=== PATIENT | male | born 1970 | race Two or more races ===

== ENCOUNTER 2016-04-23 09:34 | Inpatient (IN) | payer MEDICAID ==
[~2016-04-23] VITALS: Ht 182.9 cm; Wt 83.1 kg
[~2016-04-23 09:34] MED LIST: ATOR10TA52 PO; DICY10CA12 PO; INSRTEST IV; INSUINJ37 SUBCUT; LISI-646 PO; LISI-706 PO; OMEP20CA5 PO; ONDA4TAB5 PO; SERT-274 PO; TRAM100T37 PO
[2016-04-23] MEDS ORDERED: SODIUM CHLORIDE 0.9% 1,000 ML IVB ONE (10:36)
[2016-04-23] MEDS ORDERED: HYDROmorphone HCL 2 MG/ML VL IV ONE (10:45)
[2016-04-23] MEDS ORDERED: ONDANSETRON HCL 4 MG/2 ML VIAL IV ONE (10:45)
[2016-04-23] MEDS ORDERED: PANTOPRAZOLE SODIUM 40 MG/10 ML VIAL IV ONE (10:45)
[2016-04-23] MEDS ORDERED: SODIUM CHLORIDE 0.9% 1,000 ML IV ONE ×2 (10:45→13:00)
[2016-04-23 10:50] LABS: Basophils # (auto) 0 uL; Basophils % (auto) 0.6 % (0.0-2.0); Eosinophils # (auto) 0.2 uL; Eosinophils % (auto) 2.7 % (0.0-7.0); Hematocrit 38.7 % (41.0-53.0); Hemoglobin 12.5 g/dL (13.5-17.5); Lymphocytes # (auto) 1.3 uL; Lymphocytes % (auto) 17.3 % (10.0-50.0); Mean Corpuscular Hgb Conc. 32.4 g/dL (32.0-36.0); Mean Corpuscular Volume 89.7 fL (80.0-100.0); Monocytes # (auto) 0.5 uL; Monocytes % (auto) 5.9 % (0.0-12.0); Neutrophils # (auto) 5.6 uL; Neutrophils % (auto) 73.5 % (37.0-80.0); Platelet Count (auto) 281 10^3/uL (140-450); White Blood Cell 7.6 10^3/uL (4.4-10.8)
[2016-04-23 11:05] LABS: Albumin 3.8 g/dL (3.4-5.0); Alkaline Phosphatase 98 U/L (45-117); Anion Gap 10 (5-15); Aspartate Aminotransferase 15 U/L (15-37); BUN/Creatinine Ratio 15.1; Bilirubin, Total 0.5 mg/dL (0.2-1.0); Blood Urea Nitrogen 25 mg/dL (7-18); Calcium 9.2 mg/dL (8.5-10.1); Carbon Dioxide 25 mmol/L (21-32); Chloride 105 mmol/L (98-107); GFR African American 58 mL/min; GFR Non-African American 48 mL/min; Glucose 205 mg/dL (74-106); Sodium 140 mmol/L (136-145); Total Protein 7.4 g/dL (6.4-8.2)
[2016-04-23 11:51] LABS: Urine Bilirubin Negative (Negative); Urine Blood 2+ /uL (Negative); Urine Color Yellow (Yellow); Urine Glucose 2+ mg/dL (Normal); Urine Ketone Negative (Negative); Urine Mucus FEW (None Seen); Urine Nitrite Negative (Negative); Urine RBC 48 /hpf (0 - 3); Urine Urobilinogen Normal (Negative)
[2016-04-23] MEDS ORDERED: MORPHINE SULFATE 4 MG/ML SYRG IV ONE (13:00)
[2016-04-23] MEDS ORDERED: LORazepam 2MG/ML-1ML VIAL IV ONE (13:00)
[2016-04-23] MEDS ORDERED: PROMETHAZINE HCL 25 MG/ML 1ML IV ONE (13:00)
[2016-04-23] MEDS: SODIUM CHLORIDE 0.9% 1,000 ML IV SCH (16:53)
[2016-04-23] MEDS ORDERED: MORPHINE SULF INJ 2 MG/ML SYRINGE 1ML IV PRN ×2 (17:00→17:30)
[2016-04-23] MEDS ORDERED: traMADol HCL 50 MG TAB PO PRN (17:00)
[2016-04-23] MEDS: ACCU-CHEK COMFORT CURVE STRIP VI SCH ×2 (17:00→22:01)
[2016-04-23] MEDS ORDERED: DEXTROSE (50%) 50ML SYRG IV PRN (17:00)
[2016-04-23] MEDS ORDERED: cefTRIAXone 1GM/50ML D5W 50 ML IV ONE (17:00)
[2016-04-23] MEDS ORDERED: NITROGLYCERIN 0.4 MG SL TAB SL PRN (17:00)
[2016-04-23] MEDS ORDERED: TEMAZEPAM 15 MG CAP PO PRN (17:00)
[2016-04-23] MEDS ORDERED: DOCUSATE SOD 100 MG CAP PO PRN (17:00)
[2016-04-23] MEDS ORDERED: ACETAMINOPHEN 325 MG TAB PO PRN (17:00)
[2016-04-23] MEDS: InsuLIN REG 1unit/0.01ml Soln (100units/ml) SC SCH ×2 (17:00→22:09)
[2016-04-23 17:26] LABS: INR 1.01 (0.9-1.15); Prothrombin Time 10.4 sec (9.37-12.3)
[2016-04-23] MEDS ORDERED: ACETAMINOPHEN 500 MG TAB PO PRN (17:30)
[2016-04-23] MEDS ORDERED: HYDROcodone-ACET 5/325MG TAB PO PRN (17:30)
[2016-04-23 17:33] VITALS: BP 167/89
[2016-04-23] MEDS: MORPHINE SULF INJ 2 MG/ML SYRINGE 1ML IV PRN ×2 (17:41→21:46)
[2016-04-23] MEDS: ONDANSETRON HCL 4 MG/2 ML VIAL IV PRN (17:52)
[2016-04-23 17:56] VITALS: BP 155/100
[2016-04-23] MEDS ORDERED: FAMOTIDINE (10MG/ML) 2ML VL IV ONE (18:00)
[2016-04-23] MEDS ORDERED: HCTZ 25 MG TAB PO ONE (18:15)
[2016-04-23] MEDS ORDERED: SERTRALINE HCL 50 MG TAB PO ONE (18:15)
[2016-04-23] MEDS ORDERED: MULTIPLE VITAMIN TAB PO ONE (18:15)
[2016-04-23 20:00] VITALS: BP 150/95
[2016-04-23 20:10] LABS: Hematocrit 35.8 % (41.0-53.0); Hemoglobin 11.4 g/dL (13.5-17.5)
[2016-04-23 21:30] VITALS: BP 150/95
[2016-04-23] MEDS: DICYCLOMINE HCL 10 MG CAP PO SCH (21:44)
[2016-04-23] MEDS: ATORVASTATIN 20 MG TAB PO SCH (21:45)
[2016-04-23] MEDS: LISINOPRIL 20 MG TAB PO SCH (21:45)
[2016-04-23] MEDS: PANTOPRAZOLE SODIUM 40 MG/10 ML VIAL IV SCH (21:46)
[2016-04-23] MEDS: INSULIN DETEMIR(LEVEMIR) 1unit/0.01ml Soln (100units/ml) SC SCH (22:10)
[2016-04-24] VITALS (7 sets, daily range): BP systolic 137–163; BP diastolic 79–96
[2016-04-24] MEDS: MORPHINE SULF INJ 2 MG/ML SYRINGE 1ML IV PRN ×6 (01:46→22:34)
[2016-04-24] MEDS: ONDANSETRON HCL 4 MG/2 ML VIAL IV PRN ×4 (01:46→20:34)
[2016-04-24] MEDS: DICYCLOMINE HCL 10 MG CAP PO SCH ×3 (05:52→22:44)
[2016-04-24] MEDS: ACCU-CHEK COMFORT CURVE STRIP VI SCH ×4 (06:08→22:00)
[2016-04-24 06:12] LABS: Basophils # (auto) 0 uL; Basophils % (auto) 0.5 % (0.0-2.0); Eosinophils # (auto) 0 uL; Eosinophils % (auto) 0.2 % (0.0-7.0); Hematocrit 38.8 % (41.0-53.0); Hemoglobin 12.6 g/dL (13.5-17.5); Lymphocytes # (auto) 1.5 uL; Lymphocytes % (auto) 17.4 % (10.0-50.0); Mean Corpuscular Hgb Conc. 32.5 g/dL (32.0-36.0); Mean Corpuscular Volume 89.4 fL (80.0-100.0); Monocytes # (auto) 0.7 uL; Monocytes % (auto) 8.3 % (0.0-12.0); Neutrophils # (auto) 6.3 uL; Neutrophils % (auto) 73.6 % (37.0-80.0); Platelet Count (auto) 276 10^3/uL (140-450); Red Cell Distribution Width 13.3 % (11.6-16.0); White Blood Cell 8.6 10^3/uL (4.4-10.8)
[2016-04-24] MEDS: InsuLIN REG 1unit/0.01ml Soln (100units/ml) SC SCH ×4 (06:13→22:00)
[2016-04-24 07:02] LABS: Albumin 3.2 g/dL (3.4-5.0)
[2016-04-24 07:04] LABS: Bilirubin, Total 0.4 mg/dL (0.2-1.0)
[2016-04-24 07:25] LABS: BUN/Creatinine Ratio 16.7; Calcium 8.7 mg/dL (8.5-10.1); Potassium 3.6 mmol/L (3.5-5.1)
[2016-04-24 07:26] LABS: Total Protein 6.7 g/dL (6.4-8.2)
[2016-04-24] MEDS: SODIUM CHLORIDE 0.9% 1,000 ML IV SCH (09:33)
[2016-04-24] MEDS: cefTRIAXone 1GM/50ML D5W 50 ML IV SCH (09:38)
[2016-04-24] MEDS: LISINOPRIL 20 MG TAB PO SCH ×2 (09:39→22:45)
[2016-04-24] MEDS: SERTRALINE HCL 50 MG TAB PO SCH (09:39)
[2016-04-24] MEDS: PANTOPRAZOLE SODIUM 40 MG/10 ML VIAL IV SCH ×2 (09:40→22:34)
[2016-04-24] MEDS: HCTZ 25 MG TAB PO SCH (09:40)
[2016-04-24] MEDS: MULTIPLE VITAMIN TAB PO SCH (09:46)
[2016-04-24] MEDS: FAMOTIDINE (10MG/ML) 2ML VL IV SCH ×2 (09:50→22:34)
[2016-04-24] MEDS: SUCRALFATE 1 GM/10 ML ORAL SUSP PO SCH ×2 (17:08→22:45)
[2016-04-24] MEDS ORDERED: GOLYTELY 4L KIT PO ONE (17:15)
[2016-04-24] MEDS: INSULIN DETEMIR(LEVEMIR) 1unit/0.01ml Soln (100units/ml) SC SCH (22:00)
[2016-04-24] MEDS: ATORVASTATIN 20 MG TAB PO SCH (22:45)
[2016-04-25] MEDS: SODIUM CHLORIDE 0.9% 1,000 ML IV SCH ×2 (02:22→18:15)
[2016-04-25] MEDS: ONDANSETRON HCL 4 MG/2 ML VIAL IV PRN ×4 (03:26→21:14)
[2016-04-25] MEDS: MORPHINE SULF INJ 2 MG/ML SYRINGE 1ML IV PRN ×4 (03:27→21:14)
[2016-04-25] MEDS ORDERED: LORazepam 2MG/ML-1ML VIAL ONE (04:50)
[2016-04-25 05:00] VITALS: BP 188/79
[2016-04-25] MEDS ORDERED: LORazepam 2MG/ML-1ML VIAL IM ONE (05:05)
[2016-04-25] MEDS ORDERED: LEVETIRACETAM 500 MG/5ML INJ IV ONE (05:19)
[2016-04-25] MEDS ORDERED: LEVETIRACETAM INJ 500 MG in SODIUM CHL 0.9% 100 ML IV ONE (05:30)
[2016-04-25] MEDS ORDERED: LORazepam 2MG/ML-1ML VIAL IV ONE (05:45)
[2016-04-25] MEDS ORDERED: LORazepam 2MG/ML-1ML VIAL IV PRN (05:45)
[2016-04-25] MEDS: DICYCLOMINE HCL 10 MG CAP PO SCH ×3 (06:00→21:21)
[2016-04-25] MEDS: SUCRALFATE 1 GM/10 ML ORAL SUSP PO SCH ×4 (06:13→21:21)
[2016-04-25] MEDS: ACCU-CHEK COMFORT CURVE STRIP VI SCH ×4 (06:48→21:35)
[2016-04-25] MEDS: InsuLIN REG 1unit/0.01ml Soln (100units/ml) SC SCH ×4 (06:56→21:35)
[2016-04-25 08:00] VITALS: BP 189/8
[2016-04-25 09:00] VITALS: BP 172/93
[2016-04-25] MEDS: cefTRIAXone 1GM/50ML D5W 50 ML IV SCH (09:00)
[2016-04-25] MEDS: cloNIDine HCL 0.1 MG TAB PO PRN (09:00)
[2016-04-25] MEDS: FAMOTIDINE (10MG/ML) 2ML VL IV SCH ×2 (09:28→21:14)
[2016-04-25] MEDS: PANTOPRAZOLE SODIUM 40 MG/10 ML VIAL IV SCH ×2 (09:28→21:14)
[2016-04-25] MEDS: SERTRALINE HCL 50 MG TAB PO SCH (09:29)
[2016-04-25] MEDS: MULTIPLE VITAMIN TAB PO SCH (09:29)
[2016-04-25] MEDS: HCTZ 25 MG TAB PO SCH (09:29)
[2016-04-25] MEDS: LISINOPRIL 20 MG TAB PO SCH ×2 (09:29→21:35)
[2016-04-25] MEDS ORDERED: LABETALOL HCL 5 MG/ML 4ML SYRINGE IV PRN (09:45)
[2016-04-25] MEDS ORDERED: ONDANSETRON HCL 4 MG/2 ML VIAL ONE (11:14)
[2016-04-25] MEDS ORDERED: LIDOCAINE VISCOUS 2% 15ML UD ONE (11:19)
[2016-04-25] MEDS ORDERED: diphenhdrAMINE HCL 50 MG/1 ML VL ONE (11:19)
[2016-04-25] MEDS ORDERED: SODIUM CHLORIDE LOCK 10 ML ONE (11:19)
[2016-04-25] MEDS: MIDAZOLAM HCL 5 MG/ML-1ML VIAL ONE ×4 (12:05→12:16)
[2016-04-25] MEDS: fentaNYL CITRATE 100 MCG/2 ML VL ONE ×3 (12:05→12:16)
[2016-04-25 16:51] VITALS: BP 165/87
[2016-04-25 20:00] VITALS: BP 152/82
[2016-04-25] MEDS: ATORVASTATIN 20 MG TAB PO SCH (21:21)
[2016-04-25 21:36] VITALS: BP 152/82
[2016-04-25] MEDS: INSULIN DETEMIR(LEVEMIR) 1unit/0.01ml Soln (100units/ml) SC SCH (22:23)
[2016-04-26 04:34] VITALS: BP 146/88
[2016-04-26] MEDS: MORPHINE SULF INJ 2 MG/ML SYRINGE 1ML IV PRN ×5 (05:54→20:57)
[2016-04-26 05:55] LABS: Basophils # (auto) 0 uL; Basophils % (auto) 0.4 % (0.0-2.0); Eosinophils # (auto) 0.1 uL; Eosinophils % (auto) 0.5 % (0.0-7.0); Hematocrit 37.4 % (41.0-53.0); Hemoglobin 12.7 g/dL (13.5-17.5); Lymphocytes # (auto) 1.7 uL; Lymphocytes % (auto) 18.2 % (10.0-50.0); Mean Corpuscular Hemoglobin 30.1 pg (28.0-32.0); Mean Corpuscular Volume 88.4 fL (80.0-100.0); Mean Platelet Volume 7.7 fL (7.4-10.4); Monocytes # (auto) 0.9 uL; Monocytes % (auto) 9.4 % (0.0-12.0); Neutrophils # (auto) 6.8 uL; Neutrophils % (auto) 71.5 % (37.0-80.0); Platelet Count (auto) 273 10^3/uL (140-450); Red Cell Distribution Width 13.1 % (11.6-16.0); White Blood Cell 9.6 10^3/uL (4.4-10.8)
[2016-04-26] MEDS: InsuLIN REG 1unit/0.01ml Soln (100units/ml) SC SCH ×3 (05:55→18:00)
[2016-04-26] MEDS: ONDANSETRON HCL 4 MG/2 ML VIAL IV PRN ×4 (05:55→20:00)
[2016-04-26] MEDS: ACCU-CHEK COMFORT CURVE STRIP VI SCH ×3 (05:55→18:00)
[2016-04-26] MEDS: SUCRALFATE 1 GM/10 ML ORAL SUSP PO SCH ×4 (05:55→22:15)
[2016-04-26] MEDS: DICYCLOMINE HCL 10 MG CAP PO SCH ×3 (05:55→22:16)
[2016-04-26 06:19] LABS: Calcium 8.5 mg/dL (8.5-10.1); Potassium 3.5 mmol/L (3.5-5.1)
[2016-04-26 06:21] LABS: BUN/Creatinine Ratio 14.3
[2016-04-26 06:23] LABS: Bilirubin, Total 0.5 mg/dL (0.2-1.0); Total Protein 6.5 g/dL (6.4-8.2)
[2016-04-26 09:00] VITALS: BP 144/80
[2016-04-26] MEDS ORDERED: SERTRALINE HCL 50 MG TAB PO SCH (10:00)
[2016-04-26] MEDS: cefTRIAXone 1GM/50ML D5W 50 ML IV SCH (10:17)
[2016-04-26] MEDS: FAMOTIDINE (10MG/ML) 2ML VL IV SCH ×2 (10:17→22:15)
[2016-04-26] MEDS: HCTZ 25 MG TAB PO SCH (10:18)
[2016-04-26] MEDS: PANTOPRAZOLE SODIUM 40 MG/10 ML VIAL IV SCH ×2 (10:18→22:15)
[2016-04-26] MEDS: MULTIPLE VITAMIN TAB PO SCH (10:19)
[2016-04-26] MEDS: LISINOPRIL 20 MG TAB PO SCH ×2 (10:19→22:16)
[2016-04-26] MEDS ORDERED: DEXTROSE (50%) 50ML SYRG IV PRN (10:30)
[2016-04-26] MEDS: SODIUM CHLORIDE 0.9% 1,000 ML IV SCH (11:33)
[2016-04-26 12:36] VITALS: BP 148/82
[2016-04-26 16:28] VITALS: BP 156/91
[2016-04-26] MEDS: cloNIDine HCL 0.1 MG TAB PO PRN (20:56)
[2016-04-26] MEDS: ATORVASTATIN 20 MG TAB PO SCH (22:15)
[2016-04-26 22:19] VITALS: BP 165/88
[2016-04-27] MEDS: ACCU-CHEK COMFORT CURVE STRIP VI SCH ×3 (00:53→11:38)
[2016-04-27] MEDS: ONDANSETRON HCL 4 MG/2 ML VIAL IV PRN ×3 (01:08→10:19)
[2016-04-27] MEDS: MORPHINE SULF INJ 2 MG/ML SYRINGE 1ML IV PRN ×3 (01:08→10:20)
[2016-04-27] MEDS: SODIUM CHLORIDE 0.9% 1,000 ML IV SCH (03:43)
[2016-04-27 05:42] LABS: Basophils # (auto) 0 uL; Basophils % (auto) 0.9 % (0.0-2.0); Eosinophils # (auto) 0.1 uL; Eosinophils % (auto) 1.3 % (0.0-7.0); Hematocrit 36.9 % (41.0-53.0); Lymphocytes # (auto) 1.1 uL; Lymphocytes % (auto) 21.1 % (10.0-50.0); Mean Corpuscular Hemoglobin 30.8 pg (28.0-32.0); Mean Corpuscular Hgb Conc. 35.2 g/dL (32.0-36.0); Mean Corpuscular Volume 87.4 fL (80.0-100.0); Mean Platelet Volume 8.1 fL (7.4-10.4); Monocytes # (auto) 0.5 uL; Monocytes % (auto) 9.9 % (0.0-12.0); Neutrophils # (auto) 3.5 uL; Neutrophils % (auto) 66.8 % (37.0-80.0); Platelet Count (auto) 248 10^3/uL (140-450); Red Cell Distribution Width 13.1 % (11.6-16.0); White Blood Cell 5.2 10^3/uL (4.4-10.8)
[2016-04-27 06:04] VITALS: BP 159/88
[2016-04-27] MEDS: SUCRALFATE 1 GM/10 ML ORAL SUSP PO SCH ×2 (06:17→11:38)
[2016-04-27] MEDS: DICYCLOMINE HCL 10 MG CAP PO SCH (06:17)
[2016-04-27 06:18] LABS: BUN/Creatinine Ratio 12.4; Calcium 8.3 mg/dL (8.5-10.1); Potassium 4.2 mmol/L (3.5-5.1)
[2016-04-27] MEDS: InsuLIN REG 1unit/0.01ml Soln (100units/ml) SC SCH ×3 (06:19→12:00)
[2016-04-27] MEDS ORDERED: ABILIFY 2 MG PO SCH (07:00)
[2016-04-27] MEDS: cefTRIAXone 1GM/50ML D5W 50 ML IV SCH (08:42)
[2016-04-27 09:00] VITALS: BP 147/82
[2016-04-27] MEDS ORDERED: DULoxetine HCL 30 MG CAP PO SCH (10:00)
[2016-04-27] MEDS: MULTIPLE VITAMIN TAB PO SCH (10:18)
[2016-04-27] MEDS: LISINOPRIL 20 MG TAB PO SCH (10:19)
[2016-04-27] MEDS: HCTZ 25 MG TAB PO SCH (10:19)
[2016-04-27] MEDS: PANTOPRAZOLE SODIUM 40 MG/10 ML VIAL IV SCH (10:20)
[2016-04-27] MEDS: FAMOTIDINE (10MG/ML) 2ML VL IV SCH (10:20)
== END 2016-04-27 13:00 | disposition home or self-care (01) | DRG 254 ==
LOC: EDBD 09:34 → ER 09:34 → TELE-WESTW 09:35
PROVIDERS: ADMIT Internal Medicine; ATTEND Internal Medicine
PROC: 0DJ08ZZ Inspection of Upper Intestinal Tract, Via Natural or Artificial Opening Endoscopic (ICD-10-PCS; principal; 2016-04-25 12:02)
PROC: 0DBL8ZZ Excision of Transverse Colon, Via Natural or Artificial Opening Endoscopic (ICD-10-PCS; 2016-04-25 12:02)
DX: D12.3 Benign neoplasm of transverse colon (principal); E10.21 Type 1 diabetes mellitus with diabetic nephropathy; K92.0 Hematemesis; E10.43 Type 1 diabetes mellitus with diabetic autonomic (poly)neuropathy; I48.92 Unspecified atrial flutter; E10.22 Type 1 diabetes mellitus with diabetic chronic kidney disease; N18.3 Chronic kidney disease, stage 3 (moderate); K31.84 Gastroparesis; E86.0 Dehydration; K27.9 Peptic ulcer, site unspecified, unspecified as acute or chronic, without hemorrhage or perforation; I12.9 Hypertensive chronic kidney disease with stage 1 through stage 4 chronic kidney disease, or unspecified chronic kidney disease; I48.0 Paroxysmal atrial fibrillation; N39.0 Urinary tract infection, site not specified; G40.909 Epilepsy, unspecified, not intractable, without status epilepticus; F41.9 Anxiety disorder, unspecified; E10.65 Type 1 diabetes mellitus with hyperglycemia; F12.10 Cannabis abuse, uncomplicated; E44.1 Mild protein-calorie malnutrition; K21.9 Gastro-esophageal reflux disease without esophagitis; E78.5 Hyperlipidemia, unspecified; N20.0 Calculus of kidney; D63.8 Anemia in other chronic diseases classified elsewhere; K64.8 Other hemorrhoids; Z83.3 Family history of diabetes mellitus; Z82.49 Family history of ischemic heart disease and other diseases of the circulatory system; Z87.11 Personal history of peptic ulcer disease; Z79.4 Long term (current) use of insulin; Z87.442 Personal history of urinary calculi; Z87.891 Personal history of nicotine dependence; Z98.890 Other specified postprocedural states; Z87.19 Personal history of other diseases of the digestive system; Z68.24 Body mass index [BMI] 24.0-24.9, adult; Z80.9 Family history of malignant neoplasm, unspecified; Z88.8 Allergy status to other drugs, medicaments and biological substances
CPT/HCPCS: 36415; 43235; 45384; 70450; 71010; 74176; 80048; 80053; 81001; 82150; 82962; 83036; 83690; 83735; 84146; 84484; 85014; 85018; 85025; 85610; 86677; 87086; 95819; 96361; 96374; 96375; C9113; J0696; J1815; J2250; J2405; J3490

== ENCOUNTER 2016-05-29 16:21 | Inpatient (IN) | payer MEDICAID ==
[~2016-05-29] VITALS: Ht 182.9 cm; Wt 85.3 kg
[2016-05-29 17:24] LABS: Basophils # (auto) 0 uL; Basophils % (auto) 0.4 % (0.0-2.0); Eosinophils # (auto) 0 uL; Hematocrit 37.9 % (41.0-53.0); Hemoglobin 12.8 g/dL (13.5-17.5); Lymphocytes # (auto) 0.5 uL; Lymphocytes % (auto) 5.9 % (10.0-50.0); Mean Corpuscular Hemoglobin 30.2 pg (28.0-32.0); Mean Corpuscular Hgb Conc. 33.7 g/dL (32.0-36.0); Mean Corpuscular Volume 89.6 fL (80.0-100.0); Mean Platelet Volume 8.1 fL (7.4-10.4); Monocytes # (auto) 0.2 uL; Monocytes % (auto) 2.4 % (0.0-12.0); Neutrophils # (auto) 7.1 uL; Neutrophils % (auto) 91.3 % (37.0-80.0); Platelet Count (auto) 281 10^3/uL (140-450); Red Cell Distribution Width 13.2 % (11.6-16.0); White Blood Cell 7.8 10^3/uL (4.4-10.8)
[2016-05-29 17:33] LABS: BUN/Creatinine Ratio 16.7; Bilirubin, Total 0.6 mg/dL (0.2-1.0); Calcium 9.1 mg/dL (8.5-10.1); Magnesium 2.1 mg/dL (1.6-2.6); Total Protein 7.6 g/dL (6.4-8.2)
[2016-05-29 17:55] LABS: Potassium 4.5 mmol/L (3.5-5.1)
[2016-05-29] MEDS ORDERED: MORPHINE SULF INJ 2 MG/ML SYRINGE 1ML IV ONE (18:00)
[2016-05-29] MEDS ORDERED: PROMETHAZINE HCL 25 MG/ML 1ML IV ONE ×2 (18:00→19:30)
[2016-05-29] MEDS ORDERED: PANTOPRAZOLE SODIUM 40 MG/10 ML VIAL IV ONE (18:00)
[2016-05-29] MEDS ORDERED: hydrALAZINE HCL 20 MG/ML VL IV ONE (18:00)
[2016-05-29] MEDS ORDERED: ONDANSETRON HCL 4 MG/2 ML VIAL IV ONE (18:30)
[2016-05-29] MEDS ORDERED: SODIUM CHLORIDE 0.9% 2,000 ML IV ONE (18:30)
[2016-05-29] MEDS ORDERED: HYDROmorphone HCL 2 MG/ML VL IV ONE (19:30)
[2016-05-29] MEDS: SODIUM CHLORIDE 0.9% 1,000 ML IV SCH (22:32)
[2016-05-29] MEDS ORDERED: ACETAMINOPHEN 325 MG TAB PO PRN (22:45)
[2016-05-29] MEDS ORDERED: SODIUM CHLORIDE 0.9% 500 ML IV ONE (22:45)
[2016-05-29] MEDS ORDERED: DEXTROSE (50%) 50ML SYRG IV PRN (22:45)
[2016-05-29] MEDS ORDERED: HYDROcodone-ACET 5/325MG TAB PO PRN (22:45)
[2016-05-29] MEDS ORDERED: PROMETHAZINE HCL 25 MG/ML 1ML IV PRN (22:45)
[2016-05-29] MEDS ORDERED: ONDANSETRON HCL 4 MG/2 ML VIAL ONE (23:18)
[2016-05-29] MEDS ORDERED: MORPHINE SULF INJ 2 MG/ML SYRINGE 1ML ONE (23:18)
[2016-05-29 23:33] VITALS: BP 186/96
[2016-05-30] MEDS: ACCU-CHEK COMFORT CURVE STRIP VI SCH ×5 (01:48→23:56)
[2016-05-30] MEDS: cloNIDine HCL 0.1 MG TAB PO PRN ×2 (01:48→11:49)
[2016-05-30] MEDS: InsuLIN REG 1unit/0.01ml Soln (100units/ml) SC SCH ×4 (01:50→17:44)
[2016-05-30 02:32] LABS: Urine Bilirubin Negative (Negative); Urine Blood 2+ /uL (Negative); Urine Color Yellow (Yellow); Urine Glucose 4+ mg/dL (Normal); Urine Hyaline Cast FEW /lpf (0 - 2); Urine Ketone 1+ (Negative); Urine Mucus FEW (None Seen); Urine Nitrite Negative (Negative); Urine RBC 31 /hpf (0 - 3); Urine Squamous Epithelial Cell FEW /hpf (<5); Urine Urobilinogen Normal (Negative); Urine pH 5.5 (5.0-8.0)
[2016-05-30] MEDS: ONDANSETRON HCL 4 MG/2 ML VIAL IV PRN ×4 (03:59→20:44)
[2016-05-30] MEDS: MORPHINE SULF INJ 2 MG/ML SYRINGE 1ML IV PRN ×5 (03:59→20:44)
[2016-05-30 05:00] VITALS: BP 148/80
[2016-05-30] MEDS: DICYCLOMINE HCL 10 MG CAP PO SCH ×4 (06:00→22:27)
[2016-05-30 06:45] LABS: Basophils # (auto) 0.1 uL; Basophils % (auto) 0.7 % (0.0-2.0); Eosinophils # (auto) 0 uL; Hematocrit 33.5 % (41.0-53.0); Hemoglobin 11.5 g/dL (13.5-17.5); Lymphocytes # (auto) 1.2 uL; Lymphocytes % (auto) 15.7 % (10.0-50.0); Mean Corpuscular Hemoglobin 30.2 pg (28.0-32.0); Mean Corpuscular Hgb Conc. 34.4 g/dL (32.0-36.0); Mean Corpuscular Volume 87.9 fL (80.0-100.0); Mean Platelet Volume 7.9 fL (7.4-10.4); Monocytes # (auto) 0.7 uL; Monocytes % (auto) 9.2 % (0.0-12.0); Neutrophils # (auto) 5.6 uL; Neutrophils % (auto) 74.4 % (37.0-80.0); Platelet Count (auto) 248 10^3/uL (140-450); Red Cell Distribution Width 13.6 % (11.6-16.0); White Blood Cell 7.5 10^3/uL (4.4-10.8)
[2016-05-30 07:48] LABS: Albumin 3.2 g/dL (3.4-5.0); BUN/Creatinine Ratio 17.5; Bilirubin, Total 0.6 mg/dL (0.2-1.0); Calcium 8.8 mg/dL (8.5-10.1); Potassium 3.6 mmol/L (3.5-5.1); Total Protein 6.3 g/dL (6.4-8.2)
[2016-05-30 09:00] VITALS: BP 153/85
[2016-05-30] MEDS: ENOXAPARIN SOD 40 MG/0.4 ML SYRINGE SC SCH (10:04)
[2016-05-30] MEDS: ISOSORBIDE MONONITRATE 60 MG TAB PO SCH (10:05)
[2016-05-30] MEDS: HCTZ 25 MG TAB PO SCH (10:06)
[2016-05-30] MEDS: LISINOPRIL 20 MG TAB PO SCH (10:06)
[2016-05-30] MEDS: LOSARTAN POTASSIUM 25 MG TAB PO SCH (10:07)
[2016-05-30 13:00] VITALS: BP 164/97
[2016-05-30] MEDS: SODIUM CHLORIDE 0.9% 1,000 ML IV SCH (15:12)
[2016-05-30] MEDS ORDERED: ISOS60TA24 PO (16:53)
[2016-05-30] MEDS ORDERED: TAMS0.4C36 PO (16:53)
[2016-05-30] MEDS ORDERED: SUCR1TAB PO (16:53)
[2016-05-30] MEDS ORDERED: NOR5T PO (16:53)
[2016-05-30] MEDS ORDERED: LOSA25TA9 PO (16:53)
[2016-05-30 17:00] VITALS: BP 159/83
[2016-05-30] MEDS: TAMSULOSIN HYDROCHLORIDE 0.4 MG CAP PO SCH (17:32)
[2016-05-30 22:00] VITALS: BP 157/89
[2016-05-30] MEDS ORDERED: ATORVASTATIN 20 MG TAB PO SCH (22:00)
[2016-05-31] MEDS: InsuLIN REG 1unit/0.01ml Soln (100units/ml) SC SCH ×3 (00:01→12:00)
[2016-05-31] MEDS: MORPHINE SULF INJ 2 MG/ML SYRINGE 1ML IV PRN ×3 (00:51→09:48)
[2016-05-31] MEDS: ONDANSETRON HCL 4 MG/2 ML VIAL IV PRN ×3 (00:51→09:48)
[2016-05-31 05:00] VITALS: BP 134/91
[2016-05-31] MEDS: DICYCLOMINE HCL 10 MG CAP PO SCH ×2 (05:58→12:03)
[2016-05-31 06:00] LABS: Basophils # (auto) 0 uL; Eosinophils # (auto) 0.1 uL; Eosinophils % (auto) 1.1 % (0.0-7.0); Hematocrit 36.3 % (41.0-53.0); Hemoglobin 12.2 g/dL (13.5-17.5); Lymphocytes # (auto) 1.2 uL; Lymphocytes % (auto) 23.3 % (10.0-50.0); Mean Corpuscular Hemoglobin 30.2 pg (28.0-32.0); Mean Corpuscular Hgb Conc. 33.7 g/dL (32.0-36.0); Mean Corpuscular Volume 89.6 fL (80.0-100.0); Mean Platelet Volume 8.2 fL (7.4-10.4); Monocytes # (auto) 0.5 uL; Monocytes % (auto) 9.4 % (0.0-12.0); Neutrophils # (auto) 3.4 uL; Neutrophils % (auto) 65.2 % (37.0-80.0); Platelet Count (auto) 238 10^3/uL (140-450); Red Cell Distribution Width 13.3 % (11.6-16.0); White Blood Cell 5.2 10^3/uL (4.4-10.8)
[2016-05-31] MEDS: ACCU-CHEK COMFORT CURVE STRIP VI SCH ×2 (06:02→12:04)
[2016-05-31 06:56] LABS: Albumin 3.3 g/dL (3.4-5.0); BUN/Creatinine Ratio 14.2; Bilirubin, Total 0.7 mg/dL (0.2-1.0); Calcium 8.8 mg/dL (8.5-10.1); Potassium 3.8 mmol/L (3.5-5.1); Total Protein 6.4 g/dL (6.4-8.2)
[2016-05-31 08:01] VITALS: BP 127/80
[2016-05-31] MEDS: ISOSORBIDE MONONITRATE 60 MG TAB PO SCH (09:43)
[2016-05-31] MEDS: HCTZ 25 MG TAB PO SCH (09:45)
[2016-05-31] MEDS: LISINOPRIL 20 MG TAB PO SCH (09:46)
[2016-05-31] MEDS: LOSARTAN POTASSIUM 25 MG TAB PO SCH (09:47)
[2016-05-31] MEDS: ENOXAPARIN SOD 40 MG/0.4 ML SYRINGE SC SCH (09:47)
[2016-05-31] MEDS: SODIUM CHLORIDE 0.9% 1,000 ML IV SCH (09:49)
[2016-05-31 11:38] VITALS: BP 142/84
[2016-05-31] MEDS: TAMSULOSIN HYDROCHLORIDE 0.4 MG CAP PO SCH (12:03)
== END 2016-05-31 15:56 | disposition home or self-care (01) | DRG 465 ==
LOC: EDBD 16:21 → EDUNIT# 16:21 → ER 16:21 → OVERFLOW 16:22 → WEST WING 23:27
PROVIDERS: ADMIT Internal Medicine; ATTEND Internal Medicine
DX: N20.0 Calculus of kidney (principal); E11.21 Type 2 diabetes mellitus with diabetic nephropathy; E11.65 Type 2 diabetes mellitus with hyperglycemia; K31.84 Gastroparesis; N18.3 Chronic kidney disease, stage 3 (moderate); E44.1 Mild protein-calorie malnutrition; I12.9 Hypertensive chronic kidney disease with stage 1 through stage 4 chronic kidney disease, or unspecified chronic kidney disease; E86.0 Dehydration; I48.91 Unspecified atrial fibrillation; D63.1 Anemia in chronic kidney disease; E11.22 Type 2 diabetes mellitus with diabetic chronic kidney disease; E78.5 Hyperlipidemia, unspecified; F12.90 Cannabis use, unspecified, uncomplicated; G43.A0 Cyclical vomiting, in migraine, not intractable; J44.9 Chronic obstructive pulmonary disease, unspecified; K21.9 Gastro-esophageal reflux disease without esophagitis; Z82.49 Family history of ischemic heart disease and other diseases of the circulatory system; Z83.3 Family history of diabetes mellitus; Z87.11 Personal history of peptic ulcer disease; Z87.442 Personal history of urinary calculi; Z87.891 Personal history of nicotine dependence; Z88.8 Allergy status to other drugs, medicaments and biological substances; Z79.4 Long term (current) use of insulin; Z80.9 Family history of malignant neoplasm, unspecified
CPT/HCPCS: 36415; 71010; 74176; 80053; 81001; 82962; 83036; 83735; 85025; 87081; C9113; J1815; J2405

== ENCOUNTER 2016-07-25 22:15 | Inpatient (IN) | payer MEDICAID ==
[~2016-07-25] VITALS: Ht 182.9 cm; Wt 84.3 kg
[~2016-07-25 22:15] MED LIST changes: +ISOS60TA24 PO; +LOSA25TA9 PO; +NOR5T PO; +SUCR1TAB PO; +TAMS0.4C36 PO
[2016-07-25 23:23] LABS: Basophils # (auto) 0 uL; Basophils % (auto) 0.5 % (0.0-2.0); Eosinophils # (auto) 0 uL; Lymphocytes # (auto) 0.7 uL; Lymphocytes % (auto) 6.7 % (10.0-50.0); Mean Corpuscular Hemoglobin 30.9 pg (28.0-32.0); Mean Corpuscular Hgb Conc. 34.2 g/dL (32.0-36.0); Mean Corpuscular Volume 90.4 fL (80.0-100.0); Mean Platelet Volume 8.4 fL (7.4-10.4); Monocytes # (auto) 0.4 uL; Monocytes % (auto) 3.6 % (0.0-12.0); Neutrophils # (auto) 9.2 uL; Neutrophils % (auto) 89.2 % (37.0-80.0); Platelet Count (auto) 255 10^3/uL (140-450); Red Cell Distribution Width 13.9 % (11.6-16.0); White Blood Cell 10.3 10^3/uL (4.4-10.8)
[2016-07-25 23:31] LABS: Albumin 3.9 g/dL (3.4-5.0); BUN/Creatinine Ratio 15.7; Calcium 9.8 mg/dL (8.5-10.1); Potassium 4.2 mmol/L (3.5-5.1)
[2016-07-25 23:33] LABS: Bilirubin, Total 0.7 mg/dL (0.2-1.0); Total Protein 8.1 g/dL (6.4-8.2)
[2016-07-25 23:39] LABS: INR 0.98 (0.9-1.15); Partial Thromboplastin Time 22.4 sec (22.64-33.71); Prothrombin Time 10.7 sec (9.37-12.3)
[2016-07-25] MEDS ORDERED: SODIUM CHLORIDE 0.9% 1,000 ML IV ONE (23:45)
[2016-07-25] MEDS ORDERED: ONDANSETRON HCL 4 MG/2 ML VIAL IV ONE (23:45)
[2016-07-26] MEDS ORDERED: LIDOCAINE VISCOUS 2% 15ML UD PO ONE
[2016-07-26] MEDS ORDERED: ALUM & MAG HYDROX-SIMETH LIQ(MAALOX) 30 ML PO ONE
[2016-07-26] MEDS ORDERED: METOCLOPRAMIDE HCL 5MG/ml INJ 2ml VIAL IV ONE
[2016-07-26] MEDS ORDERED: DONNATAL 5ml ORAL Elix (BELLADONNA ALK-PHENOBARB) PO ONE
[2016-07-26] MEDS ORDERED: HYDROcodone-ACET 5/325MG TAB PO ONE (04:15)
[2016-07-26] MEDS: SODIUM CHLORIDE 0.9% 1,000 ML IV SCH ×2 (04:20→06:08)
[2016-07-26] MEDS ORDERED: NITROGLYCERIN 0.4 MG SL TAB SL PRN (04:30)
[2016-07-26] MEDS ORDERED: DEXTROSE (50%) 50ML SYRG IV PRN (04:45)
[2016-07-26 05:55] LABS: Urine Bilirubin Negative (Negative); Urine Color Yellow (Yellow); Urine Hyaline Cast FEW /lpf (0 - 2); Urine Nitrite Negative (Negative); Urine RBC 61 /hpf (0 - 3); Urine Urobilinogen Normal (Negative); Urine pH 7.5 (5.0-8.0)
[2016-07-26 05:56] LABS: Urine Blood 2+ /uL (Negative); Urine Glucose 4+ mg/dL (Normal); Urine Ketone 1+ (Negative)
[2016-07-26] MEDS: DICYCLOMINE HCL 10 MG CAP PO SCH ×3 (06:00→20:34)
[2016-07-26] MEDS: ACCU-CHEK COMFORT CURVE STRIP VI SCH ×3 (06:03→17:11)
[2016-07-26] MEDS: InsuLIN REG 1unit/0.01ml Soln (100units/ml) SC SCH ×3 (06:07→17:22)
[2016-07-26 08:02] VITALS: BP 163/82
[2016-07-26] MEDS: ONDANSETRON HCL 4 MG/2 ML VIAL IV PRN ×2 (08:19→17:22)
[2016-07-26] MEDS: HYDROcodone-ACET 5/325MG TAB PO PRN (09:59)
[2016-07-26] MEDS ORDERED: PATIENTS OWN MEDICATION (Lisinopril & Hydrochlorothiazi (Zestoretic 20-12.5 mg) 1 TAB) PO SCH (10:00)
[2016-07-26] MEDS ORDERED: OMEPRAZOLE 20MG/10ML ORAL SUSP PO SCH (10:00)
[2016-07-26] MEDS ORDERED: LISINOPRIL 20 MG TAB PO SCH (10:00)
[2016-07-26] MEDS: MORPHINE SULF INJ 2 MG/ML SYRINGE 1ML IV PRN ×2 (10:29→15:28)
[2016-07-26] MEDS: ISOSORBIDE MONONITRATE 60 MG TAB PO SCH (11:32)
[2016-07-26] MEDS: SERTRALINE HCL 50 MG TAB PO SCH (11:32)
[2016-07-26] MEDS: PANTOPRAZOLE 40 MG TAB PO SCH ×2 (11:33→20:36)
[2016-07-26 12:13] VITALS: BP 163/89
[2016-07-26 17:00] VITALS: BP 153/81
[2016-07-26] MEDS: TAMSULOSIN HYDROCHLORIDE 0.4 MG CAP PO SCH (17:10)
[2016-07-26] MEDS ORDERED: INSULIN GLARGINE 30 UNIT SUBCUT SCH (18:00)
[2016-07-26] MEDS: LOSARTAN POTASSIUM 25 MG TAB PO SCH (20:37)
[2016-07-26] MEDS: ATORVASTATIN 20 MG TAB PO SCH (20:40)
[2016-07-26] MEDS: INSULIN DETEMIR(LEVEMIR) 1unit/0.01ml Soln (100units/ml) SC SCH (20:43)
[2016-07-26 22:00] VITALS: BP 124/78
[2016-07-27] MEDS: ONDANSETRON HCL 4 MG/2 ML VIAL IV PRN ×3 (03:49→17:32)
[2016-07-27] MEDS ORDERED: KETOROLAC TROMETH 30 MG/ML 1ML VIAL IV ONE (03:58)
[2016-07-27] MEDS: SODIUM CHLORIDE 0.9% 1,000 ML IV SCH ×2 (04:20→16:02)
[2016-07-27 05:00] VITALS: BP 149/86
[2016-07-27] MEDS: ACCU-CHEK COMFORT CURVE STRIP VI SCH ×4 (06:00→18:19)
[2016-07-27] MEDS: DICYCLOMINE HCL 10 MG CAP PO SCH ×3 (06:00→22:00)
[2016-07-27] MEDS: InsuLIN REG 1unit/0.01ml Soln (100units/ml) SC SCH ×4 (06:00→16:52)
[2016-07-27] MEDS ORDERED: HYDROmorphone HCL 2 MG/ML VL IV ONE (07:00)
[2016-07-27 07:37] LABS: Basophils # (auto) 0.1 uL; Basophils % (auto) 0.3 % (0.0-2.0); Eosinophils # (auto) 0 uL; Eosinophils % (auto) 0.1 % (0.0-7.0); Hematocrit 34.7 % (41.0-53.0); Lymphocytes # (auto) 0.8 uL; Lymphocytes % (auto) 5.1 % (10.0-50.0); Mean Corpuscular Hemoglobin 31.4 pg (28.0-32.0); Mean Corpuscular Hgb Conc. 34.6 g/dL (32.0-36.0); Mean Corpuscular Volume 90.5 fL (80.0-100.0); Mean Platelet Volume 8.4 fL (7.4-10.4); Monocytes # (auto) 0.8 uL; Monocytes % (auto) 5.3 % (0.0-12.0); Neutrophils # (auto) 14.2 uL; Neutrophils % (auto) 89.2 % (37.0-80.0); Platelet Count (auto) 240 10^3/uL (140-450); Red Cell Distribution Width 13.8 % (11.6-16.0); White Blood Cell 15.9 10^3/uL (4.4-10.8)
[2016-07-27 08:00] VITALS: BP 167/63
[2016-07-27 08:03] LABS: Albumin 3.5 g/dL (3.4-5.0); BUN/Creatinine Ratio 18.1; Calcium 9.2 mg/dL (8.5-10.1); Magnesium 2.1 mg/dL (1.6-2.6); Total Protein 6.9 g/dL (6.4-8.2)
[2016-07-27] MEDS ORDERED: FLUMAZENIL 0.1 MG/ML INJ 10ML MDV IV ONE (08:26)
[2016-07-27] MEDS ORDERED: SODIUM CHLORIDE LOCK 10 ML ONE (08:26)
[2016-07-27] MEDS ORDERED: NALOXONE HCL 0.4 MG/ML VIAL ONE (08:26)
[2016-07-27] MEDS ORDERED: LIDOCAINE VISCOUS 2% 15ML UD ONE (08:26)
[2016-07-27] MEDS ORDERED: diphenhdrAMINE HCL 50 MG/1 ML VL ONE (08:27)
[2016-07-27] MEDS: PANTOPRAZOLE 40 MG TAB PO SCH ×2 (09:27→22:03)
[2016-07-27] MEDS: ISOSORBIDE MONONITRATE 60 MG TAB PO SCH (09:28)
[2016-07-27] MEDS: SERTRALINE HCL 50 MG TAB PO SCH (09:28)
[2016-07-27] MEDS: HYDROcodone-ACET 5/325MG TAB PO PRN ×3 (10:42→21:45)
[2016-07-27 12:13] VITALS: BP 147/80
[2016-07-27] MEDS: MIDAZOLAM HCL 5 MG/ML-1ML VIAL ONE ×2 (12:54→12:57)
[2016-07-27] MEDS: fentaNYL CITRATE 100 MCG/2 ML VL ONE ×2 (12:54→12:57)
[2016-07-27 17:02] VITALS: BP 154/88
[2016-07-27] MEDS: TAMSULOSIN HYDROCHLORIDE 0.4 MG CAP PO SCH (17:32)
[2016-07-27 22:00] VITALS: BP 137/80
[2016-07-27] MEDS ORDERED: ATORVASTATIN 20 MG TAB PO SCH (22:00)
[2016-07-27] MEDS: ATORVASTATIN 20 MG TAB PO SCH (22:02)
[2016-07-27] MEDS: LOSARTAN POTASSIUM 25 MG TAB PO SCH (22:02)
[2016-07-27] MEDS: INSULIN DETEMIR(LEVEMIR) 1unit/0.01ml Soln (100units/ml) SC SCH (22:08)
[2016-07-28] MEDS: ACCU-CHEK COMFORT CURVE STRIP VI SCH ×3 (00:35→12:00)
[2016-07-28] MEDS: SODIUM CHLORIDE 0.9% 1,000 ML IV SCH ×2 (00:36→10:34)
[2016-07-28] MEDS: InsuLIN REG 1unit/0.01ml Soln (100units/ml) SC SCH ×3 (00:45→12:00)
[2016-07-28 05:00] VITALS: BP 149/83
[2016-07-28] MEDS: DICYCLOMINE HCL 10 MG CAP PO SCH (06:03)
[2016-07-28] MEDS: ONDANSETRON HCL 4 MG/2 ML VIAL IV PRN (06:03)
[2016-07-28 06:06] LABS: Basophils # (auto) 0.1 uL; Basophils % (auto) 0.9 % (0.0-2.0); Eosinophils # (auto) 0 uL; Eosinophils % (auto) 0.6 % (0.0-7.0); Hematocrit 29.2 % (41.0-53.0); Hemoglobin 10.2 g/dL (13.5-17.5); Lymphocytes # (auto) 1.2 uL; Lymphocytes % (auto) 17.5 % (10.0-50.0); Mean Corpuscular Hemoglobin 31.2 pg (28.0-32.0); Mean Corpuscular Hgb Conc. 34.8 g/dL (32.0-36.0); Mean Corpuscular Volume 89.5 fL (80.0-100.0); Mean Platelet Volume 7.5 fL (7.4-10.4); Monocytes # (auto) 0.6 uL; Monocytes % (auto) 9.1 % (0.0-12.0); Neutrophils # (auto) 4.9 uL; Neutrophils % (auto) 71.9 % (37.0-80.0); Platelet Count (auto) 216 10^3/uL (140-450); Red Cell Distribution Width 13.1 % (11.6-16.0); White Blood Cell 6.9 10^3/uL (4.4-10.8)
[2016-07-28 06:23] LABS: BUN/Creatinine Ratio 19.7; Calcium 8.1 mg/dL (8.5-10.1); Potassium 3.7 mmol/L (3.5-5.1)
[2016-07-28 09:00] VITALS: BP_SYST 121; BP_SYST 136; BP_DIAS 72; BP_DIAS 80
[2016-07-28] MEDS: PANTOPRAZOLE 40 MG TAB PO SCH (10:00)
[2016-07-28] MEDS: SERTRALINE HCL 50 MG TAB PO SCH (10:00)
[2016-07-28] MEDS: ISOSORBIDE MONONITRATE 60 MG TAB PO SCH (10:00)
[2016-07-28] MEDS ORDERED: ATO40T PO (10:30)
[2016-07-28] MEDS ORDERED: PANT40T PO (10:30)
[2016-07-28] MEDS: HYDROcodone-ACET 5/325MG TAB PO PRN (10:37)
[2016-07-28 13:00] VITALS: BP 148/81
== END 2016-07-28 13:40 | disposition home or self-care (01) | DRG 253 ==
LOC: EDBD 22:15 → ER 22:20 → TELE 22:21 → TELE-E-ADS 07-26 08:12 → TELE-EAST 07-26 10:30
PROVIDERS: ADMIT Emergency Medicine; ATTEND Internal Medicine
PROC: 0DJ08ZZ Inspection of Upper Intestinal Tract, Via Natural or Artificial Opening Endoscopic (ICD-10-PCS; principal; 2016-07-27 12:50)
DX: K92.0 Hematemesis (principal); E11.21 Type 2 diabetes mellitus with diabetic nephropathy; E11.43 Type 2 diabetes mellitus with diabetic autonomic (poly)neuropathy; R10.9 Unspecified abdominal pain; E78.5 Hyperlipidemia, unspecified; N18.9 Chronic kidney disease, unspecified; K21.9 Gastro-esophageal reflux disease without esophagitis; I12.9 Hypertensive chronic kidney disease with stage 1 through stage 4 chronic kidney disease, or unspecified chronic kidney disease; I48.91 Unspecified atrial fibrillation; N20.0 Calculus of kidney; Z82.49 Family history of ischemic heart disease and other diseases of the circulatory system; Z86.73 Personal history of transient ischemic attack (TIA), and cerebral infarction without residual deficits; Z83.3 Family history of diabetes mellitus; Z87.11 Personal history of peptic ulcer disease; Z87.891 Personal history of nicotine dependence; I25.2 Old myocardial infarction; Z80.9 Family history of malignant neoplasm, unspecified; Z90.49 Acquired absence of other specified parts of digestive tract; Z88.8 Allergy status to other drugs, medicaments and biological substances
CPT/HCPCS: 36415; 43235; 74176; 80048; 80053; 80061; 80307; 81001; 82962; 83036; 83690; 83735; 85025; 85610; 85730; 93005; 94761; 96361; 96374; J1815; J1885; J2250; J2405

== ENCOUNTER 2016-12-01 07:55 | Inpatient (IN) | payer MEDICAID ==
[~2016-12-01] VITALS: Ht 182.9 cm; Wt 87.8 kg
[~2016-12-01 07:55] MED LIST changes: +ATO40T PO; +CEL100T PO; +CHL4PW PO; -NOR5T PO; -OMEP20CA5 PO; +PANT40T PO; -SERT-274 PO; -TAMS0.4C36 PO; -TRAM100T37 PO
[2016-12-01] MEDS ORDERED: SODIUM CHLORIDE 0.9% 1,000 ML IV ONE (08:36)
[2016-12-01] MEDS ORDERED: ONDANSETRON HCL 4 MG/2 ML VIAL IV ONE (08:45)
[2016-12-01 08:59] LABS: Basophils # (auto) 0.1 uL; Basophils % (auto) 2.1 % (0.0-2.0); Eosinophils # (auto) 0.3 uL; Hematocrit 33.8 % (41.0-53.0); Hemoglobin 11.7 g/dL (13.5-17.5); Lymphocytes # (auto) 1.1 uL; Lymphocytes % (auto) 21.1 % (10.0-50.0); Mean Corpuscular Hemoglobin 31.3 pg (28.0-32.0); Mean Corpuscular Hgb Conc. 34.5 g/dL (32.0-36.0); Mean Corpuscular Volume 90.9 fL (80.0-100.0); Mean Platelet Volume 7.4 fL (6.9-10.8); Monocytes # (auto) 0.5 uL; Monocytes % (auto) 10.3 % (0.0-12.0); Neutrophils # (auto) 3.2 uL; Neutrophils % (auto) 61.5 % (37.0-80.0); Platelet Count (auto) 210 10^3/uL (140-450); Red Cell Distribution Width 13.3 % (11.8-14.3); White Blood Cell 5.2 10^3/uL (4.4-10.8)
[2016-12-01 09:22] LABS: Albumin 3.4 g/dL (3.4-5.0); BUN/Creatinine Ratio 17.3; Bilirubin, Total 0.3 mg/dL (0.2-1.0); Magnesium 2.3 mg/dL (1.6-2.6); Potassium 5.2 mmol/L (3.5-5.1); Total Protein 6.7 g/dL (6.4-8.2)
[2016-12-01] MEDS ORDERED: DEXTROSE (50%) 50ML SYRG IV PRN (10:00)
[2016-12-01] MEDS ORDERED: MORPHINE SULF INJ 2 MG/ML SYRINGE 1ML IV PRN (10:00)
[2016-12-01] MEDS ORDERED: PANTOPRAZOLE 40 MG/10 ML VIAL IV SCH (10:00)
[2016-12-01] MEDS ORDERED: NITROGLYCERIN 0.4 MG SL TAB SL PRN (10:00)
[2016-12-01] MEDS ORDERED: PANTOPRAZOLE 40 MG/10 ML VIAL IV ONE (10:00)
[2016-12-01] MEDS ORDERED: TEMAZEPAM 15 MG CAP PO PRN (10:00)
[2016-12-01] MEDS ORDERED: ACETAMINOPHEN 500 MG TAB PO PRN (10:00)
[2016-12-01] MEDS ORDERED: LORazepam 0.5 MG TAB PO PRN (10:00)
[2016-12-01] MEDS ORDERED: metroNIDAZOLE 500MG/100ML 100 ML IV ONE (10:15)
[2016-12-01] MEDS: SODIUM CHLORIDE 0.9% 1,000 ML IV SCH ×2 (10:21→17:50)
[2016-12-01] MEDS: LEVOFLOXACIN 500MG 100 ML IV SCH (10:53)
[2016-12-01] MEDS: PROMETHAZINE HCL 25 MG/ML 1ML IV PRN (10:54)
[2016-12-01] MEDS: MORPHINE SULF INJ 2 MG/ML SYRINGE 1ML IV PRN ×3 (10:54→19:41)
[2016-12-01 11:17] LABS: Urine Bilirubin Negative (Negative); Urine Blood 1+ /uL (Negative); Urine Color Yellow (Yellow); Urine Glucose Normal (Normal); Urine Ketone Negative (Negative); Urine Nitrite Negative (Negative); Urine RBC 10 /hpf (0 - 3); Urine Squamous Epithelial Cell FEW /hpf (<5); Urine Urobilinogen Normal (Negative); Urine pH 7.5 (5.0-8.0)
[2016-12-01] MEDS ORDERED: PANTOPRAZOLE 40 MG TAB PO ONE (11:45)
[2016-12-01] MEDS: ACCU-CHEK COMFORT CURVE STRIP VI SCH ×2 (12:00→17:50)
[2016-12-01] MEDS: InsuLIN REG 1unit/0.01ml Soln (100units/ml) SC SCH ×2 (12:00→17:50)
[2016-12-01 12:06] LABS: INR 0.95 (0.9-1.15); Prothrombin Time 10.4 sec (9.37-12.3)
[2016-12-01 12:40] VITALS: BP 157/89
[2016-12-01] MEDS: metroNIDAZOLE 500MG/100ML 100 ML IV SCH ×2 (14:00→22:18)
[2016-12-01 17:14] VITALS: BP_SYST 164; BP_DIAS 71; BP_DIAS 99
[2016-12-01 18:06] LABS: Hematocrit 33.6 % (41.0-53.0); Hemoglobin 11.6 g/dL (13.5-17.5)
[2016-12-01] MEDS: HYDROcodone-ACET 5/325MG TAB PO PRN (21:38)
[2016-12-01 22:00] VITALS: BP 147/85
[2016-12-02] MEDS: ACCU-CHEK COMFORT CURVE STRIP VI SCH ×4 (00:17→18:13)
[2016-12-02] MEDS: MORPHINE SULF INJ 2 MG/ML SYRINGE 1ML IV PRN ×6 (00:57→22:49)
[2016-12-02 01:00] LABS: Hematocrit 30.7 % (41.0-53.0); Hemoglobin 10.6 g/dL (13.5-17.5)
[2016-12-02] MEDS: SODIUM CHLORIDE 0.9% 1,000 ML IV SCH ×3 (01:47→18:37)
[2016-12-02 05:00] VITALS: BP 186/100
[2016-12-02] MEDS: metroNIDAZOLE 500MG/100ML 100 ML IV SCH ×3 (05:12→21:32)
[2016-12-02] MEDS: InsuLIN REG 1unit/0.01ml Soln (100units/ml) SC SCH ×4 (06:00→18:14)
[2016-12-02 06:14] LABS: Basophils # (auto) 0.1 uL; Basophils % (auto) 2.1 % (0.0-2.0); Eosinophils # (auto) 0.2 uL; Eosinophils % (auto) 5.5 % (0.0-7.0); Hematocrit 34.3 % (41.0-53.0); Hemoglobin 11.8 g/dL (13.5-17.5); Lymphocytes # (auto) 1.4 uL; Lymphocytes % (auto) 36.4 % (10.0-50.0); Mean Corpuscular Hemoglobin 31.2 pg (28.0-32.0); Mean Corpuscular Hgb Conc. 34.5 g/dL (32.0-36.0); Mean Corpuscular Volume 90.5 fL (80.0-100.0); Mean Platelet Volume 7.7 fL (6.9-10.8); Monocytes # (auto) 0.4 uL; Monocytes % (auto) 9.5 % (0.0-12.0); Neutrophils # (auto) 1.8 uL; Neutrophils % (auto) 46.5 % (37.0-80.0); Platelet Count (auto) 210 10^3/uL (140-450); White Blood Cell 3.8 10^3/uL (4.4-10.8)
[2016-12-02 06:36] LABS: Albumin 3.2 g/dL (3.4-5.0); Bilirubin, Total 0.4 mg/dL (0.2-1.0); Calcium 8.6 mg/dL (8.5-10.1); Potassium 4.2 mmol/L (3.5-5.1); Total Protein 6.6 g/dL (6.4-8.2)
[2016-12-02] MEDS ORDERED: MIDAZOLAM HCL 5 MG/ML-1ML VIAL ONE (08:13)
[2016-12-02] MEDS ORDERED: fentaNYL CITRATE 100 MCG/2 ML VL ONE (08:13)
[2016-12-02] MEDS ORDERED: SODIUM CHLORIDE LOCK 10 ML ONE (08:13)
[2016-12-02] MEDS ORDERED: LIDOCAINE VISCOUS 2% 15ML UD ONE (08:14)
[2016-12-02] MEDS ORDERED: diphenhdrAMINE HCL 50 MG/1 ML VL ONE (08:14)
[2016-12-02 08:41] VITALS: BP 168/81
[2016-12-02] MEDS: PANTOPRAZOLE 40 MG TAB PO SCH (09:57)
[2016-12-02] MEDS: LEVOFLOXACIN 500MG 100 ML IV SCH (10:00)
[2016-12-02 13:00] VITALS: BP 167/99
[2016-12-02] MEDS: PROMETHAZINE HCL 25 MG/ML 1ML IV PRN ×3 (13:52→22:50)
[2016-12-02 15:18] VITALS: BP 167/99
[2016-12-02] MEDS: METOPROLOL SUCCINATE XL 50 MG TAB PO SCH (16:28)
[2016-12-02 16:41] VITALS: BP 157/100
[2016-12-02 21:46] VITALS: BP 142/83
[2016-12-03] MEDS: ACCU-CHEK COMFORT CURVE STRIP VI SCH ×4 (00:15→17:04)
[2016-12-03] MEDS: SODIUM CHLORIDE 0.9% 1,000 ML IV SCH ×2 (03:01→21:43)
[2016-12-03] MEDS: PROMETHAZINE HCL 25 MG/ML 1ML IV PRN ×4 (03:38→18:26)
[2016-12-03] MEDS: MORPHINE SULF INJ 2 MG/ML SYRINGE 1ML IV PRN ×4 (03:38→18:26)
[2016-12-03 05:00] VITALS: BP 150/90
[2016-12-03] MEDS: metroNIDAZOLE 500MG/100ML 100 ML IV SCH ×3 (05:34→21:43)
[2016-12-03] MEDS: InsuLIN REG 1unit/0.01ml Soln (100units/ml) SC SCH ×4 (05:39→17:05)
[2016-12-03 08:15] VITALS: BP 157/104
[2016-12-03] MEDS: LEVOFLOXACIN 500MG 100 ML IV SCH (10:25)
[2016-12-03] MEDS: PANTOPRAZOLE 40 MG TAB PO SCH (10:25)
[2016-12-03] MEDS: METOPROLOL SUCCINATE XL 50 MG TAB PO SCH (10:26)
[2016-12-03 12:37] VITALS: BP 164/92
[2016-12-03 17:09] VITALS: BP 183/105
[2016-12-03 20:00] VITALS: BP 156/86
[2016-12-03 22:45] VITALS: BP 156/86
[2016-12-04] MEDS: MORPHINE SULF INJ 2 MG/ML SYRINGE 1ML IV PRN ×6 (00:14→19:40)
[2016-12-04] MEDS: ACCU-CHEK COMFORT CURVE STRIP VI SCH ×4 (00:15→17:23)
[2016-12-04] MEDS: PROMETHAZINE HCL 25 MG/ML 1ML IV PRN ×6 (00:15→19:40)
[2016-12-04] MEDS: InsuLIN REG 1unit/0.01ml Soln (100units/ml) SC SCH ×4 (00:25→17:41)
[2016-12-04 05:43] VITALS: BP 145/75
[2016-12-04] MEDS: metroNIDAZOLE 500MG/100ML 100 ML IV SCH ×3 (06:05→21:39)
[2016-12-04 09:00] VITALS: BP 154/93
[2016-12-04] MEDS: PANTOPRAZOLE 40 MG TAB PO SCH (09:36)
[2016-12-04] MEDS: LEVOFLOXACIN 500MG 100 ML IV SCH (09:36)
[2016-12-04] MEDS: METOPROLOL SUCCINATE XL 50 MG TAB PO SCH (09:37)
[2016-12-04] MEDS ORDERED: GOLYTELY 4L KIT PO ONE (12:00)
[2016-12-04 13:00] VITALS: BP 164/99
[2016-12-04] MEDS: SODIUM CHLORIDE 0.9% 1,000 ML IV SCH ×2 (14:52→21:39)
[2016-12-04 17:00] VITALS: BP 157/93
[2016-12-04 20:00] VITALS: BP 141/63
[2016-12-04 21:30] VITALS: BP 141/63
[2016-12-05] MEDS: ACCU-CHEK COMFORT CURVE STRIP VI SCH ×4 (00:22→17:23)
[2016-12-05] MEDS: PROMETHAZINE HCL 25 MG/ML 1ML IV PRN ×2 (04:12→11:50)
[2016-12-05] MEDS: HYDROcodone-ACET 5/325MG TAB PO PRN (04:19)
[2016-12-05 04:44] VITALS: BP 156/85
[2016-12-05] MEDS: metroNIDAZOLE 500MG/100ML 100 ML IV SCH ×2 (05:45→13:51)
[2016-12-05] MEDS: InsuLIN REG 1unit/0.01ml Soln (100units/ml) SC SCH ×4 (06:00→17:23)
[2016-12-05 07:07] LABS: INR 1.1 (0.9-1.15)
[2016-12-05 07:13] LABS: Basophils # (auto) 0.1 uL; Basophils % (auto) 1.9 % (0.0-2.0); Eosinophils # (auto) 0.2 uL; Eosinophils % (auto) 3.7 % (0.0-7.0); Hematocrit 32.1 % (41.0-53.0); Hemoglobin 11.3 g/dL (13.5-17.5); Lymphocytes # (auto) 0.9 uL; Lymphocytes % (auto) 19.2 % (10.0-50.0); Mean Corpuscular Hemoglobin 31.7 pg (28.0-32.0); Mean Corpuscular Hgb Conc. 35.2 g/dL (32.0-36.0); Mean Platelet Volume 7.6 fL (6.9-10.8); Monocytes # (auto) 0.5 uL; Monocytes % (auto) 10.4 % (0.0-12.0); Neutrophils # (auto) 3.2 uL; Neutrophils % (auto) 64.8 % (37.0-80.0); Nucleated Red Blood Cells % 0.1 %; Platelet Count (auto) 192 10^3/uL (140-450); White Blood Cell 4.9 10^3/uL (4.4-10.8)
[2016-12-05 07:21] LABS: BUN/Creatinine Ratio 11.5; Calcium 8.5 mg/dL (8.5-10.1); Magnesium 1.6 mg/dL (1.6-2.6); Potassium 4.3 mmol/L (3.5-5.1)
[2016-12-05 08:00] VITALS: BP 156/85
[2016-12-05 08:14] VITALS: BP 183/96
[2016-12-05] MEDS ORDERED: fentaNYL CITRATE 100 MCG/2 ML VL ONE (09:38)
[2016-12-05] MEDS ORDERED: diphenhdrAMINE HCL 50 MG/1 ML VL ONE (09:38)
[2016-12-05] MEDS ORDERED: SODIUM CHLORIDE LOCK 10 ML ONE (09:38)
[2016-12-05] MEDS ORDERED: LIDOCAINE VISCOUS 2% 15ML UD ONE (09:38)
[2016-12-05] MEDS: fentaNYL CITRATE 100 MCG/2 ML VL ONE ×3 (09:50→10:06)
[2016-12-05] MEDS: MIDAZOLAM HCL 5 MG/ML-1ML VIAL ONE ×5 (09:50→10:06)
[2016-12-05] MEDS ORDERED: HYOSCYAMINE SULF 0.125 MG TAB PO PRN (10:30)
[2016-12-05] MEDS: LEVOFLOXACIN 500MG 100 ML IV SCH (11:34)
[2016-12-05] MEDS: METOPROLOL SUCCINATE XL 50 MG TAB PO SCH (11:35)
[2016-12-05] MEDS: PANTOPRAZOLE 40 MG TAB PO SCH (11:35)
[2016-12-05] MEDS: SODIUM CHLORIDE 0.9% 1,000 ML IV SCH ×2 (11:36→17:22)
[2016-12-05] MEDS: MORPHINE SULF INJ 2 MG/ML SYRINGE 1ML IV PRN ×2 (11:51→16:55)
[2016-12-05 16:39] VITALS: BP 154/78
[2016-12-05 17:32] VITALS: BP 154/78
[2016-12-06 05:10] LABS: Endomysial IgA Antibody Negative (Negative)
== END 2016-12-05 18:01 | disposition home or self-care (01) | DRG 253 ==
LOC: ER 07:55 → TELE 07:56 → TELE-E-ADS 12:06 → TELE-WESTW 15:07
PROVIDERS: ADMIT Internal Medicine; ATTEND Internal Medicine
PROC: 0DBE8ZZ Excision of Large Intestine, Via Natural or Artificial Opening Endoscopic (ICD-10-PCS; 2016-12-05)
PROC: 0DBK8ZX Excision of Ascending Colon, Via Natural or Artificial Opening Endoscopic, Diagnostic (ICD-10-PCS; 2016-12-05)
PROC: 0DB98ZX Excision of Duodenum, Via Natural or Artificial Opening Endoscopic, Diagnostic (ICD-10-PCS; principal; 2016-12-05 09:48)
PROC: 0DB68ZX Excision of Stomach, Via Natural or Artificial Opening Endoscopic, Diagnostic (ICD-10-PCS; 2016-12-05 09:48)
DX: K62.5 Hemorrhage of anus and rectum (principal); E11.22 Type 2 diabetes mellitus with diabetic chronic kidney disease; N18.3 Chronic kidney disease, stage 3 (moderate); I12.9 Hypertensive chronic kidney disease with stage 1 through stage 4 chronic kidney disease, or unspecified chronic kidney disease; E87.6 Hypokalemia; R19.7 Diarrhea, unspecified; E11.65 Type 2 diabetes mellitus with hyperglycemia; K64.9 Unspecified hemorrhoids; K29.60 Other gastritis without bleeding; K64.8 Other hemorrhoids; F12.90 Cannabis use, unspecified, uncomplicated; K63.5 Polyp of colon; E78.5 Hyperlipidemia, unspecified; Z87.442 Personal history of urinary calculi; Z87.11 Personal history of peptic ulcer disease; Z83.3 Family history of diabetes mellitus; Z82.49 Family history of ischemic heart disease and other diseases of the circulatory system; Z90.49 Acquired absence of other specified parts of digestive tract; Z80.9 Family history of malignant neoplasm, unspecified; Z79.4 Long term (current) use of insulin; Z79.899 Other long term (current) drug therapy
CPT/HCPCS: 36415; 71010; 74176; 80048; 80053; 80061; 80307; 81001; 82150; 82270; 82378; 82705; 82784; 82962; 83036; 83516; 83690; 83735; 85014; 85018; 85025; 85045; 85610; 85652; 86141; 86255; 86850; 86900; 86901; 87081; 94761; 96361; 96365; 96375; C9113; J1815; J1956; J2250; J2405; J3490

== ENCOUNTER 2016-12-13 09:43 | Inpatient (IN) | payer MEDICAID ==
[~2016-12-13] VITALS: Ht 182.9 cm; Wt 86.6 kg
[~2016-12-13 09:43] MED LIST changes: -LISI-646 PO; -LOSA25TA9 PO
[2016-12-13] MEDS ORDERED: SODIUM CHLORIDE 0.9% 1,000 ML IV ONE (10:22)
[2016-12-13 11:07] LABS: Basophils # (auto) 0.1 uL; Basophils % (auto) 2.1 % (0.0-2.0); Eosinophils # (auto) 0.2 uL; Eosinophils % (auto) 3.1 % (0.0-7.0); Hematocrit 35.9 % (41.0-53.0); Hemoglobin 12.3 g/dL (13.5-17.5); Lymphocytes % (auto) 18.2 % (10.0-50.0); Mean Corpuscular Hemoglobin 31.2 pg (28.0-32.0); Mean Corpuscular Hgb Conc. 34.3 g/dL (32.0-36.0); Mean Corpuscular Volume 90.9 fL (80.0-100.0); Mean Platelet Volume 7.9 fL (6.9-10.8); Monocytes # (auto) 0.4 uL; Monocytes % (auto) 7.8 % (0.0-12.0); Neutrophils # (auto) 3.8 uL; Neutrophils % (auto) 68.8 % (37.0-80.0); Platelet Count (auto) 267 10^3/uL (140-450); Red Cell Distribution Width 13.6 % (11.8-14.3); White Blood Cell 5.6 10^3/uL (4.4-10.8)
[2016-12-13 11:23] LABS: INR 0.92 (0.9-1.15)
[2016-12-13 11:53] LABS: Albumin 3.7 g/dL (3.4-5.0); BUN/Creatinine Ratio 16.5; Bilirubin, Total 0.4 mg/dL (0.2-1.0); Calcium 8.8 mg/dL (8.5-10.1); Potassium 4.4 mmol/L (3.5-5.1); Total Protein 7.3 g/dL (6.4-8.2)
[2016-12-13] MEDS ORDERED: ENOXAPARIN SOD 80 MG/0.8ML SYRINGE SC ONE (12:30)
[2016-12-13] MEDS ORDERED: ASPirin 325 MG TAB PO ONE (12:30)
[2016-12-13 12:45] LABS: Urine Bilirubin Negative (Negative); Urine Blood 2+ /uL (Negative); Urine Color Yellow (Yellow); Urine Glucose Normal (Normal); Urine Ketone Negative (Negative); Urine Nitrite Negative (Negative); Urine RBC 20 /hpf (0 - 3); Urine Squamous Epithelial Cell FEW /hpf (<5); Urine Urobilinogen Normal (Negative)
[2016-12-13] MEDS ORDERED: LABETALOL HCL 5 MG/ML ML 20ML VIAL IV ONE (13:12)
[2016-12-13] MEDS ORDERED: LABETALOL HCL 5 MG/ML 4ML SYRINGE IV ONE (13:15)
[2016-12-13] MEDS ORDERED: LORazepam 2MG/ML-1ML VIAL IV ONE (13:30)
[2016-12-13] MEDS ORDERED: MORPHINE SULF INJ 2 MG/ML SYRINGE 1ML IV PRN ×2 (13:45)
[2016-12-13] MEDS ORDERED: ACETAMINOPHEN 500 MG TAB PO PRN (13:45)
[2016-12-13] MEDS ORDERED: LORazepam 0.5 MG TAB PO PRN (13:45)
[2016-12-13] MEDS ORDERED: NITROGLYCERIN 0.4 MG SL TAB SL PRN (13:45)
[2016-12-13] MEDS ORDERED: TEMAZEPAM 15 MG CAP PO PRN (13:45)
[2016-12-13] MEDS ORDERED: LACTULOSE 20Gm/30ML SOLN PO PRN (13:45)
[2016-12-13] MEDS: NITROGLYCERIN 0.2MG/HR TOPICAL PATCH TD SCH (13:59)
[2016-12-13] MEDS: SODIUM CHLORIDE 0.9% 1,000 ML IV SCH (14:19)
[2016-12-13] MEDS: METOPROLOL TARTRATE 25 MG TAB PO SCH ×2 (14:19→22:28)
[2016-12-13] MEDS: ISOSORBIDE MONONITRATE 60 MG TAB PO SCH (14:19)
[2016-12-13] MEDS: HCTZ 25 MG TAB PO SCH (14:20)
[2016-12-13] MEDS: DICYCLOMINE HCL 10 MG CAP PO SCH ×2 (14:20→22:27)
[2016-12-13] MEDS: PANTOPRAZOLE 40 MG TAB PO SCH ×2 (14:20→22:00)
[2016-12-13] MEDS: LISINOPRIL 20 MG TAB PO SCH (14:20)
[2016-12-13] MEDS: ACCU-CHEK COMFORT CURVE STRIP VI SCH ×2 (16:42→22:31)
[2016-12-13] MEDS: InsuLIN REG 1unit/0.01ml Soln (100units/ml) SC SCH ×2 (16:42→22:00)
[2016-12-13] MEDS ORDERED: INSULIN GLARGINE 30 UNIT SUBCUT SCH (18:00)
[2016-12-13] MEDS: HYDROcodone-ACET 5/325MG TAB PO PRN (19:30)
[2016-12-13 20:09] LABS: B-Type Natriuretic Peptide 187.59 pg/mL (0-100)
[2016-12-13 20:32] LABS: Temperature: 22.8 C (20.0-25.0)
[2016-12-13] MEDS ORDERED: INSULIN DETEMIR(LEVEMIR) 1unit/0.01ml Soln (100units/ml) SC SCH (22:00)
[2016-12-13] MEDS: SUCRALFATE 1 GM TAB PO SCH (22:27)
[2016-12-13 23:23] VITALS: BP 146/82
[2016-12-14] VITALS (7 sets, daily range): BP systolic 146–163; BP diastolic 74–96
[2016-12-14] MEDS: SODIUM CHLORIDE 0.9% 1,000 ML IV SCH (00:41)
[2016-12-14] MEDS: ACCU-CHEK COMFORT CURVE STRIP VI SCH ×5 (04:39→22:10)
[2016-12-14] MEDS: DEXTROSE (50%) 50ML SYRG IV PRN ×2 (04:41→06:52)
[2016-12-14 04:57] LABS: Basophils # (auto) 0.1 uL; Basophils % (auto) 2.1 % (0.0-2.0); Eosinophils # (auto) 0.2 uL; Eosinophils % (auto) 3.3 % (0.0-7.0); Hematocrit 29.3 % (41.0-53.0); Hemoglobin 10.2 g/dL (13.5-17.5); Lymphocytes # (auto) 1.9 uL; Lymphocytes % (auto) 31.1 % (10.0-50.0); Mean Corpuscular Hemoglobin 31.3 pg (28.0-32.0); Mean Corpuscular Hgb Conc. 34.7 g/dL (32.0-36.0); Mean Corpuscular Volume 90.2 fL (80.0-100.0); Mean Platelet Volume 7.3 fL (6.9-10.8); Monocytes # (auto) 0.6 uL; Monocytes % (auto) 10.2 % (0.0-12.0); Neutrophils # (auto) 3.2 uL; Neutrophils % (auto) 53.3 % (37.0-80.0); Platelet Count (auto) 221 10^3/uL (140-450); Red Cell Distribution Width 13.4 % (11.8-14.3)
[2016-12-14 05:29] LABS: Albumin 2.9 g/dL (3.4-5.0); BUN/Creatinine Ratio 14.9; Bilirubin, Total 0.5 mg/dL (0.2-1.0); Calcium 8.2 mg/dL (8.5-10.1); Potassium 3.6 mmol/L (3.5-5.1); Total Protein 5.9 g/dL (6.4-8.2)
[2016-12-14] MEDS ORDERED: D5W 5% 1,000 ML IV STA (05:32)
[2016-12-14] MEDS: DICYCLOMINE HCL 10 MG CAP PO SCH ×3 (06:00→22:09)
[2016-12-14] MEDS: InsuLIN REG 1unit/0.01ml Soln (100units/ml) SC SCH ×3 (06:41→22:11)
[2016-12-14] MEDS ORDERED: DEXTROSE 10% 1,000 ML IV ONE (07:00)
[2016-12-14] MEDS: PROMETHAZINE HCL 25 MG/ML 1ML IV PRN (08:00)
[2016-12-14] MEDS ORDERED: ADENOSINE 70 MG in GIVE UN-DILUTED 0 ML IV STA (08:52)
[2016-12-14] MEDS: ATORVASTATIN 20 MG TAB PO SCH ×2 (10:00→22:09)
[2016-12-14] MEDS: PANTOPRAZOLE 40 MG TAB PO SCH ×2 (10:00→22:09)
[2016-12-14] MEDS ORDERED: PATIENTS OWN MEDICATION (Lisinopril & Hydrochlorothiazi (Zestoretic 20-12.5 mg) 1 TAB) PO SCH (10:00)
[2016-12-14] MEDS: METOPROLOL TARTRATE 25 MG TAB PO SCH ×2 (10:00→22:11)
[2016-12-14] MEDS: ASPirin 81 mg TAB PO SCH (10:00)
[2016-12-14] MEDS: HCTZ 25 MG TAB PO SCH (10:00)
[2016-12-14] MEDS: LISINOPRIL 20 MG TAB PO SCH (10:00)
[2016-12-14] MEDS: SUCRALFATE 1 GM TAB PO SCH ×2 (10:00→22:09)
[2016-12-14] MEDS: CHOLESTYRAMINE 4 GM POWDER PO SCH (10:00)
[2016-12-14] MEDS: ISOSORBIDE MONONITRATE 60 MG TAB PO SCH (14:00)
[2016-12-14] MEDS: NITROGLYCERIN 0.2MG/HR TOPICAL PATCH TD SCH (14:00)
[2016-12-14] MEDS ORDERED: DEXTROSE (50%) 50ML SYRG IV PRN (14:30)
[2016-12-14] MEDS: HYDROcodone-ACET 5/325MG TAB PO PRN (20:49)
[2016-12-15] MEDS: HYDROcodone-ACET 5/325MG TAB PO PRN ×2 (04:17→20:57)
[2016-12-15 05:00] VITALS: BP 156/82
[2016-12-15] MEDS: ACCU-CHEK COMFORT CURVE STRIP VI SCH ×4 (06:40→22:37)
[2016-12-15] MEDS: DICYCLOMINE HCL 10 MG CAP PO SCH ×3 (06:40→22:35)
[2016-12-15] MEDS: InsuLIN REG 1unit/0.01ml Soln (100units/ml) SC SCH ×4 (06:41→22:37)
[2016-12-15] MEDS ORDERED: INSULIN DETEMIR(LEVEMIR) 1unit/0.01ml Soln (100units/ml) SC SCH (07:00)
[2016-12-15] MEDS: PROMETHAZINE HCL 25 MG/ML 1ML IV PRN (08:01)
[2016-12-15 09:23] VITALS: BP 149/84
[2016-12-15] MEDS ORDERED: ASPI81CH43 PO (09:31)
[2016-12-15] MEDS: HCTZ 25 MG TAB PO SCH (10:12)
[2016-12-15] MEDS: ASPirin 81 mg TAB PO SCH (10:12)
[2016-12-15] MEDS: SUCRALFATE 1 GM TAB PO SCH ×2 (10:12→22:35)
[2016-12-15] MEDS: CHOLESTYRAMINE 4 GM POWDER PO SCH (10:13)
[2016-12-15] MEDS: ISOSORBIDE MONONITRATE 60 MG TAB PO SCH (10:13)
[2016-12-15] MEDS: LISINOPRIL 20 MG TAB PO SCH (10:13)
[2016-12-15] MEDS: PANTOPRAZOLE 40 MG TAB PO SCH ×2 (10:13→22:34)
[2016-12-15] MEDS: METOPROLOL TARTRATE 25 MG TAB PO SCH ×2 (10:13→22:36)
[2016-12-15] MEDS ORDERED: MET25T PO (11:37)
[2016-12-15 13:00] VITALS: BP 146/75
[2016-12-15 17:17] VITALS: BP 156/97
[2016-12-15 22:00] VITALS: BP 170/94
[2016-12-15] MEDS: ATORVASTATIN 20 MG TAB PO SCH (22:34)
[2016-12-16 05:00] VITALS: BP 167/85
[2016-12-16] MEDS: ACCU-CHEK COMFORT CURVE STRIP VI SCH (06:31)
[2016-12-16] MEDS: DICYCLOMINE HCL 10 MG CAP PO SCH (06:31)
[2016-12-16] MEDS: InsuLIN REG 1unit/0.01ml Soln (100units/ml) SC SCH (06:33)
[2016-12-16] MEDS ORDERED: INSULIN DETEMIR(LEVEMIR) 1unit/0.01ml Soln (100units/ml) SC SCH (07:00)
== END 2016-12-16 09:28 | disposition home or self-care (01) | DRG 194 ==
LOC: ER 09:43 → TELE 09:44 → DOU IN ICU 23:07 → TELE-CENTR 12-14 18:21
PROVIDERS: ADMIT Internal Medicine; ATTEND Internal Medicine
DX: I13.0 Hypertensive heart and chronic kidney disease with heart failure and stage 1 through stage 4 chronic kidney disease, or unspecified chronic kidney disease (principal); E11.22 Type 2 diabetes mellitus with diabetic chronic kidney disease; I24.9 Acute ischemic heart disease, unspecified; I50.33 Acute on chronic diastolic (congestive) heart failure; E11.649 Type 2 diabetes mellitus with hypoglycemia without coma; N18.2 Chronic kidney disease, stage 2 (mild); I16.0 Hypertensive urgency; M94.0 Chondrocostal junction syndrome [Tietze]; E78.5 Hyperlipidemia, unspecified; F12.90 Cannabis use, unspecified, uncomplicated; F32.9 Major depressive disorder, single episode, unspecified; E11.65 Type 2 diabetes mellitus with hyperglycemia; K29.70 Gastritis, unspecified, without bleeding; Z87.11 Personal history of peptic ulcer disease; Z83.3 Family history of diabetes mellitus; Z82.49 Family history of ischemic heart disease and other diseases of the circulatory system; Z90.49 Acquired absence of other specified parts of digestive tract
CPT/HCPCS: 36415; 71010; 78452; 80053; 80061; 80307; 81001; 82550; 82962; 83036; 83880; 84484; 85025; 85379; 85610; 85652; 85730; 86141; 87081; 93005; 93017; 93306; 93970; 96361; 96372; 96374; 96375; J0153; J1815

== ENCOUNTER 2017-01-02 06:32 | Emergency (ER) | payer MEDICAID ==
[~2017-01-02] VITALS: Ht 180.3 cm; Wt 83.9 kg
[~2017-01-02 06:32] MED LIST changes: +ASPI81CH43 PO; -ATOR10TA52 PO; +MET25T PO
[2017-01-02 06:49] VITALS: BP 134/86
== END 2017-01-02 08:11 | disposition left against medical advice (07) ==
LOC: EDBD 06:32 → ER 06:32
DX: R07.89 Other chest pain (principal); R11.2 Nausea with vomiting, unspecified; R19.7 Diarrhea, unspecified; Z53.21 Procedure and treatment not carried out due to patient leaving prior to being seen by health care provider

== ENCOUNTER 2017-01-02 16:44 | Inpatient (IN) | payer MEDICAID ==
[~2017-01-02] VITALS: Ht 182.9 cm; Wt 86.9 kg
[2017-01-02] MEDS ORDERED: ONDANSETRON HCL 4 MG/2 ML VIAL ONE (17:04)
[2017-01-02] MEDS ORDERED: ONDANSETRON HCL 4 MG/2 ML VIAL IV ONE (17:15)
[2017-01-02] MEDS ORDERED: SODIUM CHLORIDE 0.9% 1,000 ML IV ONE ×2 (17:15→17:37)
[2017-01-02] MEDS ORDERED: LORazepam 2MG/ML-1ML VIAL IV ONE (17:30)
[2017-01-02] MEDS ORDERED: KETOROLAC TROMETH 30 MG/ML 1ML VIAL IV ONE (17:30)
[2017-01-02 17:32] LABS: Basophils # (auto) 0.1 uL; Basophils % (auto) 0.8 % (0.0-2.0); Eosinophils # (auto) 0 uL; Hematocrit 38.5 % (41.0-53.0); Hemoglobin 13.2 g/dL (13.5-17.5); Lymphocytes # (auto) 0.6 uL; Lymphocytes % (auto) 6.3 % (10.0-50.0); Mean Corpuscular Hemoglobin 31.3 pg (28.0-32.0); Mean Corpuscular Hgb Conc. 34.4 g/dL (32.0-36.0); Mean Corpuscular Volume 90.9 fL (80.0-100.0); Monocytes # (auto) 0.4 uL; Monocytes % (auto) 4.2 % (0.0-12.0); Neutrophils # (auto) 8.7 uL; Neutrophils % (auto) 88.7 % (37.0-80.0); Platelet Count (auto) 242 10^3/uL (140-450); Red Blood Cells 4.24 10^6/uL (4.5-5.90); Red Cell Distribution Width 13.9 % (11.8-14.3); White Blood Cell 9.9 10^3/uL (4.4-10.8)
[2017-01-02 17:43] LABS: Amylase 54 U/L (25-115); Lipase 75 U/L (73-393)
[2017-01-02 17:44] LABS: Albumin 4.4 g/dL (3.4-5.0); BUN/Creatinine Ratio 16.6; Bilirubin, Total 0.8 mg/dL (0.2-1.0); Calcium 9.9 mg/dL (8.5-10.1); Potassium 4.3 mmol/L (3.5-5.1); Total Protein 8.8 g/dL (6.4-8.2)
[2017-01-02] MEDS ORDERED: ASPirin 325 MG TAB PO ONE (18:00)
[2017-01-02] MEDS ORDERED: NITROGLYCERIN 0.4 MG SL TAB SL ONE (18:00)
[2017-01-02 18:33] LABS: INR 0.95 (0.9-1.15); Partial Thromboplastin Time 24.1 sec (22.64-33.71); Prothrombin Time 10.4 sec (9.37-12.3)
[2017-01-02] MEDS ORDERED: MORPHINE SULFATE 10 MG/ML INJ 1ML SDV IV PRN (19:15)
[2017-01-02] MEDS ORDERED: DEXTROSE (50%) 50ML SYRG IV PRN (19:15)
[2017-01-02] MEDS ORDERED: DOCUSATE SOD 100 MG CAP PO PRN (19:15)
[2017-01-02] MEDS ORDERED: ACETAMINOPHEN 325 MG TAB PO PRN (19:15)
[2017-01-02] MEDS ORDERED: HYDROcodone-ACET 5/325MG TAB PO PRN (19:15)
[2017-01-02] MEDS ORDERED: TEMAZEPAM 15 MG CAP PO PRN (19:15)
[2017-01-02] MEDS ORDERED: NITROGLYCERIN 0.4 MG SL TAB SL PRN (19:15)
[2017-01-02] MEDS: SODIUM CHLORIDE 0.9% 1,000 ML IV SCH (19:54)
[2017-01-02 19:57] LABS: Hematocrit 33.6 % (41.0-53.0); Hemoglobin 11.3 g/dL (13.5-17.5)
[2017-01-02 20:30] VITALS: BP 146/77
[2017-01-02 20:40] VITALS: BP 146/77
[2017-01-02 22:00] VITALS: BP 146/77
[2017-01-02] MEDS ORDERED: FAMOTIDINE (10MG/ML) 2ML VL IV SCH (22:00)
[2017-01-02] MEDS: CELECOXIB 100 MG CAP PO SCH (22:00)
[2017-01-02] MEDS ORDERED: InsuLIN REG 1unit/0.01ml Soln (100units/ml) SC SCH (22:00)
[2017-01-02] MEDS: PANTOPRAZOLE 40 MG/10 ML VIAL IV SCH (22:27)
[2017-01-02] MEDS: DICYCLOMINE HCL 10 MG CAP PO SCH (22:27)
[2017-01-02] MEDS: ATORVASTATIN 20 MG TAB PO SCH (22:27)
[2017-01-02] MEDS: SUCRALFATE 1 GM TAB PO SCH (22:27)
[2017-01-02] MEDS: METOPROLOL TARTRATE 25 MG TAB PO SCH (22:27)
[2017-01-02] MEDS: INSULIN DETEMIR(LEVEMIR) 1unit/0.01ml Soln (100units/ml) SC SCH (22:28)
[2017-01-02] MEDS: ACCU-CHEK COMFORT CURVE STRIP VI SCH (22:28)
[2017-01-03] MEDS: HYDROmorphone HCL 2 MG/ML VL IV PRN ×5 (00:06→19:12)
[2017-01-03] MEDS: ONDANSETRON HCL 4 MG/2 ML VIAL IV PRN ×4 (00:06→13:50)
[2017-01-03] MEDS: SODIUM CHLORIDE 0.9% 1,000 ML IV SCH ×3 (03:53→20:58)
[2017-01-03 05:00] VITALS: BP 156/80
[2017-01-03 06:17] LABS: Basophils # (auto) 0.1 uL; Basophils % (auto) 0.6 % (0.0-2.0); Eosinophils # (auto) 0 uL; Eosinophils % (auto) 0.1 % (0.0-7.0); Hematocrit 32.7 % (41.0-53.0); Hemoglobin 11.1 g/dL (13.5-17.5); Lymphocytes # (auto) 1.1 uL; Lymphocytes % (auto) 9.2 % (10.0-50.0); Mean Corpuscular Hgb Conc. 33.8 g/dL (32.0-36.0); Mean Corpuscular Volume 91.7 fL (80.0-100.0); Monocytes # (auto) 1.3 uL; Monocytes % (auto) 10.6 % (0.0-12.0); Neutrophils # (auto) 9.8 uL; Neutrophils % (auto) 79.5 % (37.0-80.0); Platelet Count (auto) 189 10^3/uL (140-450); Red Blood Cells 3.56 10^6/uL (4.5-5.90); Red Cell Distribution Width 13.7 % (11.8-14.3); White Blood Cell 12.3 10^3/uL (4.4-10.8)
[2017-01-03] MEDS: ACCU-CHEK COMFORT CURVE STRIP VI SCH ×4 (06:17→21:49)
[2017-01-03] MEDS: DICYCLOMINE HCL 10 MG CAP PO SCH ×3 (06:17→21:48)
[2017-01-03] MEDS: SUCRALFATE 1 GM TAB PO SCH ×4 (06:17→21:48)
[2017-01-03 06:23] LABS: Urine Bacteria NONE SEEN /hpf (None Seen); Urine Blood 2+ /uL (Negative); Urine Hyaline Cast MANY /lpf (0 - 2); Urine Mucus FEW (None Seen); Urine Specific Gravity 1.018 (1.001-1.035); Urine WBC 9 /hpf (0 - 3)
[2017-01-03 06:44] LABS: Albumin 3.1 g/dL (3.4-5.0); BUN/Creatinine Ratio 17.9; Bilirubin, Total 0.6 mg/dL (0.2-1.0); Calcium 8.6 mg/dL (8.5-10.1); Potassium 3.9 mmol/L (3.5-5.1); Total Protein 6.5 g/dL (6.4-8.2)
[2017-01-03 06:51] LABS: Alcohol, Urine < 3.0 mg/dL (0-5); Amphetamine Screen, Urine NEGATIVE (NEGATIVE); Barbiturate Scree,Urine NEGATIVE (NEGATIVE); Benzodiazephine Screen, Urine NEGATIVE (NEGATIVE); Cannabinoid Screen, Urine POSITIVE (NEGATIVE); Cocaine Screen, Urine NEGATIVE (NEGATIVE); Opiate Scree,Urine NEGATIVE (NEGATIVE); Phencyclidine Screen, Urine NEGATIVE (NEGATIVE)
[2017-01-03] MEDS ORDERED: InsuLIN REG 1unit/0.01ml Soln (100units/ml) SC SCH (07:00)
[2017-01-03 08:18] VITALS: BP 159/96
[2017-01-03] MEDS: PANTOPRAZOLE 40 MG/10 ML VIAL IV SCH ×2 (09:07→21:48)
[2017-01-03] MEDS: CELECOXIB 100 MG CAP PO SCH ×2 (09:11→21:48)
[2017-01-03] MEDS: MULTIPLE VITAMIN TAB PO SCH (09:11)
[2017-01-03] MEDS: HCTZ 25 MG TAB PO SCH (09:12)
[2017-01-03] MEDS: METOPROLOL TARTRATE 25 MG TAB PO SCH ×2 (09:13→21:49)
[2017-01-03] MEDS: ISOSORBIDE MONONITRATE 60 MG TAB PO SCH (09:14)
[2017-01-03] MEDS: LISINOPRIL 20 MG TAB PO SCH (09:19)
[2017-01-03] MEDS ORDERED: DEXTROSE (50%) 50ML SYRG IV PRN (10:45)
[2017-01-03] MEDS: CHOLESTYRAMINE 4 GM POWDER PO SCH (11:30)
[2017-01-03] MEDS: InsuLIN REG 1unit/0.01ml Soln (100units/ml) SC SCH ×3 (11:30→21:49)
[2017-01-03] MEDS: Boost Glucose Control 8 Ounces PO SCH ×2 (12:00→18:00)
[2017-01-03 13:00] VITALS: BP 142/81
[2017-01-03] MEDS: PROMETHAZINE HCL 25 MG/ML 1ML IV PRN ×2 (15:52→19:41)
[2017-01-03 17:18] VITALS: BP 148/95
[2017-01-03] MEDS: ATORVASTATIN 20 MG TAB PO SCH (21:48)
[2017-01-03] MEDS: INSULIN DETEMIR(LEVEMIR) 1unit/0.01ml Soln (100units/ml) SC SCH (21:49)
[2017-01-03 22:00] VITALS: BP 142/80
[2017-01-04] MEDS: HYDROmorphone HCL 2 MG/ML VL IV PRN (03:43)
[2017-01-04] MEDS: PROMETHAZINE HCL 25 MG/ML 1ML IV PRN (03:43)
[2017-01-04] MEDS: SODIUM CHLORIDE 0.9% 1,000 ML IV SCH ×2 (04:52→12:54)
[2017-01-04 05:00] VITALS: BP 181/96
[2017-01-04] MEDS: METOPROLOL TARTRATE 25 MG TAB PO SCH ×2 (06:18→10:40)
[2017-01-04] MEDS: SUCRALFATE 1 GM TAB PO SCH ×2 (06:19→10:36)
[2017-01-04] MEDS: LISINOPRIL 20 MG TAB PO SCH ×2 (06:19→10:39)
[2017-01-04] MEDS: InsuLIN REG 1unit/0.01ml Soln (100units/ml) SC SCH ×2 (06:19→11:42)
[2017-01-04] MEDS: DICYCLOMINE HCL 10 MG CAP PO SCH ×2 (06:19→14:00)
[2017-01-04] MEDS: ACCU-CHEK COMFORT CURVE STRIP VI SCH ×2 (06:19→11:41)
[2017-01-04 06:56] LABS: Basophils # (auto) 0.1 uL; Basophils % (auto) 1.8 % (0.0-2.0); Eosinophils # (auto) 0.1 uL; Eosinophils % (auto) 1.4 % (0.0-7.0); Hematocrit 32.3 % (41.0-53.0); Hemoglobin 11.1 g/dL (13.5-17.5); Lymphocytes # (auto) 1.1 uL; Lymphocytes % (auto) 16.7 % (10.0-50.0); Mean Corpuscular Hemoglobin 31.5 pg (28.0-32.0); Mean Corpuscular Hgb Conc. 34.5 g/dL (32.0-36.0); Mean Corpuscular Volume 91.4 fL (80.0-100.0); Monocytes # (auto) 0.6 uL; Monocytes % (auto) 9.8 % (0.0-12.0); Neutrophils # (auto) 4.7 uL; Neutrophils % (auto) 70.3 % (37.0-80.0); Platelet Count (auto) 189 10^3/uL (140-450); Red Blood Cells 3.53 10^6/uL (4.5-5.90); Red Cell Distribution Width 13.4 % (11.8-14.3); White Blood Cell 6.7 10^3/uL (4.4-10.8)
[2017-01-04 07:29] LABS: BUN/Creatinine Ratio 16.2; Bilirubin, Total 0.6 mg/dL (0.2-1.0); Calcium 8.3 mg/dL (8.5-10.1); Potassium 4.4 mmol/L (3.5-5.1); Total Protein 6.2 g/dL (6.4-8.2)
[2017-01-04 09:00] VITALS: BP 158/81
[2017-01-04] MEDS: CHOLESTYRAMINE 4 GM POWDER PO SCH (10:33)
[2017-01-04] MEDS: ONDANSETRON HCL 4 MG/2 ML VIAL IV PRN (10:33)
[2017-01-04] MEDS: PANTOPRAZOLE 40 MG/10 ML VIAL IV SCH (10:34)
[2017-01-04] MEDS: MULTIPLE VITAMIN TAB PO SCH (10:36)
[2017-01-04] MEDS: HCTZ 25 MG TAB PO SCH (10:38)
[2017-01-04] MEDS: ISOSORBIDE MONONITRATE 60 MG TAB PO SCH (10:39)
[2017-01-04] MEDS: CELECOXIB 100 MG CAP PO SCH (10:40)
[2017-01-04] MEDS: Boost Glucose Control 8 Ounces PO SCH ×2 (10:49→14:00)
== END 2017-01-04 14:23 | disposition home or self-care (01) | DRG 204 ==
LOC: ER 16:48 → TELE 16:49 → TELE-CENTR 20:30
PROVIDERS: ADMIT Internal Medicine; ATTEND Internal Medicine
DX: R55 Syncope and collapse (principal); E10.21 Type 1 diabetes mellitus with diabetic nephropathy; E44.0 Moderate protein-calorie malnutrition; I13.0 Hypertensive heart and chronic kidney disease with heart failure and stage 1 through stage 4 chronic kidney disease, or unspecified chronic kidney disease; I50.32 Chronic diastolic (congestive) heart failure; R11.2 Nausea with vomiting, unspecified; E10.22 Type 1 diabetes mellitus with diabetic chronic kidney disease; N39.0 Urinary tract infection, site not specified; N18.3 Chronic kidney disease, stage 3 (moderate); D63.8 Anemia in other chronic diseases classified elsewhere; E78.5 Hyperlipidemia, unspecified; E86.0 Dehydration; K29.70 Gastritis, unspecified, without bleeding; F12.90 Cannabis use, unspecified, uncomplicated; R19.7 Diarrhea, unspecified; Z82.49 Family history of ischemic heart disease and other diseases of the circulatory system; Z83.3 Family history of diabetes mellitus; Z87.11 Personal history of peptic ulcer disease; Z90.49 Acquired absence of other specified parts of digestive tract; Z68.26 Body mass index [BMI] 26.0-26.9, adult
CPT/HCPCS: 36415; 71010; 80053; 80307; 81001; 82150; 82962; 83036; 83690; 83880; 84443; 84484; 85014; 85018; 85025; 85610; 85730; 87081; 96361; 96374; 96375; C9113; J1815; J1885; J2405; J3490

== ENCOUNTER 2017-01-07 14:57 | Inpatient (IN) | payer MEDICAID ==
[~2017-01-07] VITALS: Ht 182.9 cm; Wt 89.9 kg
[~2017-01-07 14:57] MED LIST changes: -INSRTEST IV
[2017-01-07] MEDS ORDERED: SODIUM CHLORIDE 0.9% 1,000 ML IVB ONE (15:48)
[2017-01-07] MEDS ORDERED: ONDANSETRON HCL 4 MG/2 ML VIAL IV ONE (16:00)
[2017-01-07] MEDS ORDERED: MORPHINE SULFATE 10 MG/ML INJ 1ML SDV IV ONE (16:00)
[2017-01-07 16:13] LABS: Basophils # (auto) 0 uL; Basophils % (auto) 0.9 % (0.0-2.0); Eosinophils # (auto) 0.2 uL; Eosinophils % (auto) 2.7 % (0.0-7.0); Hematocrit 34.2 % (41.0-53.0); Lymphocytes # (auto) 1.5 uL; Lymphocytes % (auto) 26.5 % (10.0-50.0); Mean Corpuscular Hemoglobin 31.2 pg (28.0-32.0); Mean Corpuscular Hgb Conc. 35.2 g/dL (32.0-36.0); Mean Corpuscular Volume 88.7 fL (80.0-100.0); Mean Platelet Volume 7.9 fL (6.9-10.8); Monocytes # (auto) 0.5 uL; Monocytes % (auto) 9.5 % (0.0-12.0); Neutrophils # (auto) 3.4 uL; Neutrophils % (auto) 60.4 % (37.0-80.0); Nucleated Red Blood Cells % 0.1 %; Platelet Count (auto) 232 10^3/uL (140-450); Red Cell Distribution Width 13.2 % (11.8-14.3); White Blood Cell 5.6 10^3/uL (4.4-10.8)
[2017-01-07 16:25] LABS: INR 0.93 (0.9-1.15); Partial Thromboplastin Time 22.9 sec (22.64-33.71); Prothrombin Time 10.1 sec (9.37-12.3)
[2017-01-07 16:32] LABS: Albumin 3.9 g/dL (3.4-5.0); Alkaline Phosphatase 107 U/L (45-117); Anion Gap 11 (5-15); Aspartate Aminotransferase 34 U/L (15-37); BUN/Creatinine Ratio 13.6; Bilirubin, Total 0.5 mg/dL (0.2-1.0); Blood Urea Nitrogen 24 mg/dL (7-18); Calcium 8.9 mg/dL (8.5-10.1); Carbon Dioxide 29 mmol/L (21-32); Chloride 98 mmol/L (98-107); GFR African American 54 mL/min; GFR Non-African American 44 mL/min; Glucose 239 mg/dL (74-106); Sodium 138 mmol/L (136-145); Total Protein 7.7 g/dL (6.4-8.2)
[2017-01-07 16:59] LABS: B-Type Natriuretic Peptide 47.3 pg/mL (0-100); Temperature: 22.2 C (20.0-25.0)
[2017-01-07] MEDS ORDERED: MORPHINE SULFATE 10 MG/ML INJ 1ML SDV IV PRN (17:15)
[2017-01-07] MEDS ORDERED: TEMAZEPAM 15 MG CAP PO PRN (17:15)
[2017-01-07] MEDS ORDERED: HYDROcodone-ACET 5/325MG TAB PO PRN (17:15)
[2017-01-07] MEDS ORDERED: LORazepam 0.5 MG TAB PO PRN (17:15)
[2017-01-07] MEDS ORDERED: DEXTROSE (50%) 50ML SYRG IV PRN (17:15)
[2017-01-07] MEDS ORDERED: NITROGLYCERIN 0.4 MG SL TAB SL PRN (17:15)
[2017-01-07] MEDS ORDERED: ACETAMINOPHEN 500 MG TAB PO PRN (17:15)
[2017-01-07] MEDS: INSULIN DETEMIR(LEVEMIR) 1unit/0.01ml Soln (100units/ml) SC SCH ×2 (19:27→21:35)
[2017-01-07] MEDS ORDERED: cloNIDine HCL 0.1 MG TAB PO PRN (20:15)
[2017-01-07 20:30] VITALS: BP 159/89
[2017-01-07] MEDS: SODIUM CHLOR 0.9% PF (SALINE LOCK) 10ML VIAL IV SCH (21:34)
[2017-01-07] MEDS: DICYCLOMINE HCL 10 MG CAP PO SCH (21:34)
[2017-01-07] MEDS: METOPROLOL TARTRATE 25 MG TAB PO SCH (21:34)
[2017-01-07] MEDS: ATORVASTATIN 20 MG TAB PO SCH (21:34)
[2017-01-07] MEDS: SUCRALFATE 1 GM TAB PO SCH (21:34)
[2017-01-07] MEDS: PANTOPRAZOLE 40 MG TAB PO SCH (21:35)
[2017-01-07] MEDS: ACCU-CHEK COMFORT CURVE STRIP VI SCH (21:35)
[2017-01-07] MEDS: InsuLIN REG 1unit/0.01ml Soln (100units/ml) SC SCH (21:35)
[2017-01-07 21:47] VITALS: BP 159/89
[2017-01-07] MEDS: MORPHINE SULFATE 10 MG/ML INJ 1ML SDV IV PRN (22:00)
[2017-01-08] MEDS: MORPHINE SULFATE 10 MG/ML INJ 1ML SDV IV PRN ×5 (03:51→22:59)
[2017-01-08 04:52] VITALS: BP 156/81
[2017-01-08] MEDS: SODIUM CHLOR 0.9% PF (SALINE LOCK) 10ML VIAL IV SCH ×3 (05:28→22:16)
[2017-01-08] MEDS: DICYCLOMINE HCL 10 MG CAP PO SCH ×3 (05:28→22:19)
[2017-01-08] MEDS: InsuLIN REG 1unit/0.01ml Soln (100units/ml) SC SCH ×4 (06:02→22:20)
[2017-01-08] MEDS: ACCU-CHEK COMFORT CURVE STRIP VI SCH ×4 (06:02→22:21)
[2017-01-08 06:34] LABS: Cholesterol 164 mg/dL (< 200); HDL Cholesterol 51 mg/dL (40-59); LDL Cholesterol 105 mg/dL (< 100); Triglycerides 117 mg/dL (< 150)
[2017-01-08 09:00] VITALS: BP 157/90
[2017-01-08] MEDS: PROMETHAZINE HCL 25 MG/ML 1ML IV PRN ×4 (09:00→22:59)
[2017-01-08] MEDS ORDERED: PATIENTS OWN MEDICATION (Lisinopril & Hydrochlorothiazi (Zestoretic 20-12.5 mg) 1 TAB) PO SCH (10:00)
[2017-01-08] MEDS ORDERED: CHOLESTYRAMINE 4 GM POWDER PO SCH (10:00)
[2017-01-08] MEDS: PANTOPRAZOLE 40 MG TAB PO SCH ×2 (10:30→22:18)
[2017-01-08] MEDS: SUCRALFATE 1 GM TAB PO SCH ×2 (10:30→22:18)
[2017-01-08] MEDS: ASPirin 81 mg TAB PO SCH (10:30)
[2017-01-08] MEDS: ISOSORBIDE MONONITRATE 60 MG TAB PO SCH (10:31)
[2017-01-08] MEDS: LISINOPRIL 20 MG TAB PO SCH (10:31)
[2017-01-08] MEDS: METOPROLOL TARTRATE 25 MG TAB PO SCH ×2 (10:32→22:18)
[2017-01-08] MEDS: HCTZ 25 MG TAB PO SCH (10:33)
[2017-01-08 13:00] VITALS: BP 159/98
[2017-01-08 17:11] VITALS: BP 131/74
[2017-01-08 22:00] VITALS: BP 124/73
[2017-01-08] MEDS: INSULIN DETEMIR(LEVEMIR) 1unit/0.01ml Soln (100units/ml) SC SCH ×2 (22:00→22:21)
[2017-01-08] MEDS: ATORVASTATIN 20 MG TAB PO SCH (22:19)
[2017-01-09 04:49] VITALS: BP 131/79
[2017-01-09] MEDS: PROMETHAZINE HCL 25 MG/ML 1ML IV PRN ×4 (05:16→17:39)
[2017-01-09] MEDS: MORPHINE SULFATE 10 MG/ML INJ 1ML SDV IV PRN ×4 (05:16→17:39)
[2017-01-09] MEDS: SODIUM CHLOR 0.9% PF (SALINE LOCK) 10ML VIAL IV SCH ×3 (06:11→21:53)
[2017-01-09 06:12] LABS: Basophils # (auto) 0.1 uL; Basophils % (auto) 2.1 % (0.0-2.0); Eosinophils # (auto) 0.3 uL; Eosinophils % (auto) 4.9 % (0.0-7.0); Hematocrit 30.4 % (41.0-53.0); Hemoglobin 10.7 g/dL (13.5-17.5); Lymphocytes # (auto) 1.5 uL; Lymphocytes % (auto) 26.3 % (10.0-50.0); Mean Corpuscular Hemoglobin 31.7 pg (28.0-32.0); Mean Corpuscular Hgb Conc. 35.3 g/dL (32.0-36.0); Mean Corpuscular Volume 89.9 fL (80.0-100.0); Mean Platelet Volume 8.3 fL (6.9-10.8); Monocytes # (auto) 0.6 uL; Monocytes % (auto) 9.9 % (0.0-12.0); Neutrophils # (auto) 3.2 uL; Neutrophils % (auto) 56.8 % (37.0-80.0); Nucleated Red Blood Cells % 0.2 %; Platelet Count (auto) 207 10^3/uL (140-450); White Blood Cell 5.7 10^3/uL (4.4-10.8)
[2017-01-09 06:45] LABS: Calcium 8.6 mg/dL (8.5-10.1); Potassium 4.4 mmol/L (3.5-5.1)
[2017-01-09] MEDS: DICYCLOMINE HCL 10 MG CAP PO SCH ×3 (06:50→21:53)
[2017-01-09] MEDS: InsuLIN REG 1unit/0.01ml Soln (100units/ml) SC SCH ×4 (06:51→21:55)
[2017-01-09] MEDS: ACCU-CHEK COMFORT CURVE STRIP VI SCH ×4 (06:51→21:55)
[2017-01-09 08:00] VITALS: BP 119/90
[2017-01-09] MEDS: PANTOPRAZOLE 40 MG TAB PO SCH ×2 (09:51→21:54)
[2017-01-09] MEDS: LISINOPRIL 20 MG TAB PO SCH (09:51)
[2017-01-09] MEDS: HCTZ 25 MG TAB PO SCH (09:51)
[2017-01-09] MEDS: ASPirin 81 mg TAB PO SCH (09:52)
[2017-01-09] MEDS: ISOSORBIDE MONONITRATE 60 MG TAB PO SCH (09:53)
[2017-01-09] MEDS: METOPROLOL TARTRATE 25 MG TAB PO SCH ×2 (09:53→21:54)
[2017-01-09] MEDS: SUCRALFATE 1 GM TAB PO SCH ×2 (09:53→21:53)
[2017-01-09 12:00] VITALS: BP 135/79
[2017-01-09] MEDS: SODIUM CHLORIDE 0.9% 1,000 ML IV SCH (15:20)
[2017-01-09 17:10] VITALS: BP 136/75
[2017-01-09] MEDS: ATORVASTATIN 20 MG TAB PO SCH (21:54)
[2017-01-09] MEDS: INSULIN DETEMIR(LEVEMIR) 1unit/0.01ml Soln (100units/ml) SC SCH (21:55)
[2017-01-09] MEDS ORDERED: INSULIN DETEMIR(LEVEMIR) 1unit/0.01ml Soln (100units/ml) SC SCH (22:00)
[2017-01-09 22:05] VITALS: BP 135/78
[2017-01-10 05:04] VITALS: BP 147/78
[2017-01-10] MEDS: DICYCLOMINE HCL 10 MG CAP PO SCH ×3 (05:33→21:54)
[2017-01-10] MEDS: SODIUM CHLOR 0.9% PF (SALINE LOCK) 10ML VIAL IV SCH ×3 (05:33→21:54)
[2017-01-10 05:57] LABS: Basophils # (auto) 0.1 uL; Basophils % (auto) 1.3 % (0.0-2.0); Eosinophils # (auto) 0.3 uL; Eosinophils % (auto) 4.7 % (0.0-7.0); Hematocrit 29.7 % (41.0-53.0); Hemoglobin 10.5 g/dL (13.5-17.5); Lymphocytes # (auto) 1.7 uL; Lymphocytes % (auto) 26.1 % (10.0-50.0); Mean Corpuscular Hemoglobin 31.7 pg (28.0-32.0); Mean Corpuscular Hgb Conc. 35.4 g/dL (32.0-36.0); Mean Corpuscular Volume 89.5 fL (80.0-100.0); Mean Platelet Volume 7.8 fL (6.9-10.8); Monocytes # (auto) 0.7 uL; Neutrophils # (auto) 3.6 uL; Neutrophils % (auto) 56.9 % (37.0-80.0); Platelet Count (auto) 212 10^3/uL (140-450); White Blood Cell 6.4 10^3/uL (4.4-10.8)
[2017-01-10] MEDS: InsuLIN REG 1unit/0.01ml Soln (100units/ml) SC SCH ×4 (06:09→21:55)
[2017-01-10] MEDS: ACCU-CHEK COMFORT CURVE STRIP VI SCH ×4 (06:10→21:55)
[2017-01-10 06:24] LABS: Calcium 8.4 mg/dL (8.5-10.1); Magnesium 2.1 mg/dL (1.6-2.6); Potassium 4.1 mmol/L (3.5-5.1)
[2017-01-10 08:00] VITALS: BP 152/87
[2017-01-10] MEDS: PROMETHAZINE HCL 25 MG/ML 1ML IV PRN ×2 (08:19→12:27)
[2017-01-10] MEDS: MORPHINE SULFATE 10 MG/ML INJ 1ML SDV IV PRN ×2 (08:19→12:27)
[2017-01-10] MEDS: SODIUM CHLORIDE 0.9% 1,000 ML IV SCH (08:20)
[2017-01-10 09:00] VITALS: BP 152/87
[2017-01-10] MEDS: ASPirin 81 mg TAB PO SCH (09:10)
[2017-01-10] MEDS: HCTZ 25 MG TAB PO SCH (09:11)
[2017-01-10] MEDS: LISINOPRIL 20 MG TAB PO SCH (09:12)
[2017-01-10] MEDS: SUCRALFATE 1 GM TAB PO SCH ×2 (09:12→21:54)
[2017-01-10] MEDS: METOPROLOL TARTRATE 25 MG TAB PO SCH ×2 (09:12→21:54)
[2017-01-10] MEDS: PANTOPRAZOLE 40 MG TAB PO SCH ×2 (09:12→21:55)
[2017-01-10] MEDS: ISOSORBIDE MONONITRATE 60 MG TAB PO SCH (09:12)
[2017-01-10] MEDS: INSULIN DETEMIR(LEVEMIR) 1unit/0.01ml Soln (100units/ml) SC SCH ×2 (09:17→21:55)
[2017-01-10] MEDS ORDERED: DEXTROSE (50%) 50ML SYRG IV PRN (11:15)
[2017-01-10] MEDS: CHOLESTYRAMINE 4 GM POWDER PO SCH (12:27)
[2017-01-10 12:30] VITALS: BP 153/85
[2017-01-10 16:35] VITALS: BP 145/78
[2017-01-10 21:30] VITALS: BP 132/76
[2017-01-10] MEDS: ATORVASTATIN 20 MG TAB PO SCH (21:54)
[2017-01-11] MEDS: SODIUM CHLORIDE 0.9% 1,000 ML IV SCH ×2 (00:35→17:32)
[2017-01-11 05:00] VITALS: BP 155/77
[2017-01-11] MEDS: DICYCLOMINE HCL 10 MG CAP PO SCH ×3 (05:12→22:02)
[2017-01-11] MEDS: SODIUM CHLOR 0.9% PF (SALINE LOCK) 10ML VIAL IV SCH ×3 (06:00→22:02)
[2017-01-11 06:02] LABS: BUN/Creatinine Ratio 16.9; Calcium 8.5 mg/dL (8.5-10.1)
[2017-01-11] MEDS: InsuLIN REG 1unit/0.01ml Soln (100units/ml) SC SCH ×4 (06:56→22:29)
[2017-01-11] MEDS: ACCU-CHEK COMFORT CURVE STRIP VI SCH ×4 (06:56→22:02)
[2017-01-11] MEDS: PROMETHAZINE HCL 25 MG/ML 1ML IV PRN ×2 (07:14→16:19)
[2017-01-11] MEDS: MORPHINE SULFATE 10 MG/ML INJ 1ML SDV IV PRN (07:14)
[2017-01-11] MEDS ORDERED: IOHEXOL 350 MG/ML 100ML IJ ONE (07:29)
[2017-01-11] MEDS ORDERED: LIDOCAINE 2%HCL (LOCAL ANESTH.) INJ 20ML MDV ONE (07:29)
[2017-01-11 08:00] VITALS: BP 150/80
[2017-01-11] MEDS ORDERED: fentaNYL CITRATE 100 MCG/2 ML VL ONE (08:42)
[2017-01-11] MEDS ORDERED: MIDAZOLAM HCL 1MG/1ML-2 ML VIAL ONE (08:42)
[2017-01-11] MEDS: CHOLESTYRAMINE 4 GM POWDER PO SCH (08:44)
[2017-01-11] MEDS ORDERED: NITROGLYCERIN 0.4MG/DOSE SPRAY 4.9GM ONE (09:06)
[2017-01-11] MEDS ORDERED: ONDANSETRON HCL 4 MG/2 ML VIAL ONE (09:20)
[2017-01-11] MEDS ORDERED: diphenhdrAMINE HCL 50 MG/1 ML VL ONE (09:28)
[2017-01-11] MEDS ORDERED: CLOPIDOGREL 300 MG TAB ONE (09:41)
[2017-01-11] MEDS: INSULIN DETEMIR(LEVEMIR) 1unit/0.01ml Soln (100units/ml) SC SCH ×2 (10:00→22:29)
[2017-01-11] MEDS ORDERED: ACETAMINOPHEN 500 MG TAB PO PRN (10:30)
[2017-01-11] MEDS ORDERED: ONDANSETRON HCL 4 MG/2 ML VIAL IV PRN (10:30)
[2017-01-11] MEDS ORDERED: HYDROcodone-ACET 5/325MG TAB PO PRN (10:30)
[2017-01-11] MEDS: HCTZ 25 MG TAB PO SCH (11:25)
[2017-01-11] MEDS: SUCRALFATE 1 GM TAB PO SCH ×2 (11:26→22:01)
[2017-01-11] MEDS: PANTOPRAZOLE 40 MG TAB PO SCH ×2 (11:26→22:01)
[2017-01-11] MEDS: LISINOPRIL 20 MG TAB PO SCH (11:26)
[2017-01-11] MEDS: METOPROLOL TARTRATE 25 MG TAB PO SCH ×2 (11:27→22:02)
[2017-01-11] MEDS: ISOSORBIDE MONONITRATE 60 MG TAB PO SCH (11:27)
[2017-01-11] MEDS: ASPirin 81 mg TAB PO SCH (11:27)
[2017-01-11] MEDS ORDERED: HYDROmorphone HCL 2 MG/ML VL IV ONE (11:30)
[2017-01-11 12:30] VITALS: BP 168/88
[2017-01-11 17:23] VITALS: BP 156/94
[2017-01-11 21:35] VITALS: BP 116/68
[2017-01-11] MEDS: ATORVASTATIN 20 MG TAB PO SCH (22:01)
[2017-01-12] MEDS: DICYCLOMINE HCL 10 MG CAP PO SCH ×2 (05:04→14:00)
[2017-01-12] MEDS: SODIUM CHLOR 0.9% PF (SALINE LOCK) 10ML VIAL IV SCH ×2 (05:04→14:00)
[2017-01-12 05:07] VITALS: BP 147/78
[2017-01-12 05:25] LABS: Basophils # (auto) 0.1 uL; Basophils % (auto) 1.1 % (0.0-2.0); Eosinophils # (auto) 0.2 uL; Hematocrit 28.1 % (41.0-53.0); Hemoglobin 9.9 g/dL (13.5-17.5); Lymphocytes # (auto) 1.1 uL; Lymphocytes % (auto) 14.5 % (10.0-50.0); Mean Corpuscular Hemoglobin 31.4 pg (28.0-32.0); Mean Corpuscular Hgb Conc. 35.1 g/dL (32.0-36.0); Mean Corpuscular Volume 89.4 fL (80.0-100.0); Mean Platelet Volume 7.6 fL (6.9-10.8); Monocytes # (auto) 0.7 uL; Monocytes % (auto) 9.3 % (0.0-12.0); Neutrophils # (auto) 5.5 uL; Neutrophils % (auto) 72.1 % (37.0-80.0); Platelet Count (auto) 205 10^3/uL (140-450); Red Cell Distribution Width 13.1 % (11.8-14.3); White Blood Cell 7.6 10^3/uL (4.4-10.8)
[2017-01-12 05:38] LABS: BUN/Creatinine Ratio 16.7; Calcium 8.5 mg/dL (8.5-10.1); Magnesium 2.1 mg/dL (1.6-2.6)
[2017-01-12] MEDS: InsuLIN REG 1unit/0.01ml Soln (100units/ml) SC SCH ×2 (06:35→11:22)
[2017-01-12] MEDS: ACCU-CHEK COMFORT CURVE STRIP VI SCH ×2 (06:35→11:44)
[2017-01-12] MEDS: CHOLESTYRAMINE 4 GM POWDER PO SCH (08:42)
[2017-01-12] MEDS: SODIUM CHLORIDE 0.9% 1,000 ML IV SCH (08:44)
[2017-01-12 09:00] VITALS: BP 158/80
[2017-01-12] MEDS ORDERED: CLOPIDOGREL BISULFATE 75 MG TAB PO SCH (10:00)
[2017-01-12] MEDS: PANTOPRAZOLE 40 MG TAB PO SCH (10:12)
[2017-01-12] MEDS: ASPirin 81 mg TAB PO SCH (10:13)
[2017-01-12] MEDS: LISINOPRIL 20 MG TAB PO SCH (10:15)
[2017-01-12] MEDS: ISOSORBIDE MONONITRATE 60 MG TAB PO SCH (10:18)
[2017-01-12] MEDS: METOPROLOL TARTRATE 25 MG TAB PO SCH (10:19)
[2017-01-12] MEDS: HCTZ 25 MG TAB PO SCH (10:20)
[2017-01-12] MEDS: SUCRALFATE 1 GM TAB PO SCH (10:55)
[2017-01-12] MEDS: INSULIN DETEMIR(LEVEMIR) 1unit/0.01ml Soln (100units/ml) SC SCH (10:57)
[2017-01-12 13:00] VITALS: BP 140/73
[2017-01-12] MEDS ORDERED: CLOP75TA28 PO (13:30)
[2017-01-12 14:16] VITALS: BP 140/73
[2017-01-12 14:31] VITALS: BP 140/73
== END 2017-01-12 15:36 | disposition home or self-care (01) | DRG 175 ==
LOC: ER 15:00 → TELE 15:01 → TELE-WESTW 20:05
PROVIDERS: ADMIT Internal Medicine; ATTEND Internal Medicine
PROC: 027034Z Dilation of Coronary Artery, One Artery with Drug-eluting Intraluminal Device, Percutaneous Approach (ICD-10-PCS; principal; 2017-01-11)
PROC: B240ZZ3 Ultrasonography of Single Coronary Artery, Intravascular (ICD-10-PCS; 2017-01-11)
PROC: 4A023N7 Measurement of Cardiac Sampling and Pressure, Left Heart, Percutaneous Approach (ICD-10-PCS; 2017-01-11)
PROC: B2111ZZ Fluoroscopy of Multiple Coronary Arteries using Low Osmolar Contrast (ICD-10-PCS; 2017-01-11)
PROC: B2151ZZ Fluoroscopy of Left Heart using Low Osmolar Contrast (ICD-10-PCS; 2017-01-11)
DX: I25.10 Atherosclerotic heart disease of native coronary artery without angina pectoris (principal); N17.0 Acute kidney failure with tubular necrosis; I13.0 Hypertensive heart and chronic kidney disease with heart failure and stage 1 through stage 4 chronic kidney disease, or unspecified chronic kidney disease; I50.32 Chronic diastolic (congestive) heart failure; E11.21 Type 2 diabetes mellitus with diabetic nephropathy; E11.51 Type 2 diabetes mellitus with diabetic peripheral angiopathy without gangrene; E11.40 Type 2 diabetes mellitus with diabetic neuropathy, unspecified; E11.65 Type 2 diabetes mellitus with hyperglycemia; E11.22 Type 2 diabetes mellitus with diabetic chronic kidney disease; E78.5 Hyperlipidemia, unspecified; F12.90 Cannabis use, unspecified, uncomplicated; N18.3 Chronic kidney disease, stage 3 (moderate); S99.911A Unspecified injury of right ankle, initial encounter; G47.00 Insomnia, unspecified; R19.7 Diarrhea, unspecified; F41.9 Anxiety disorder, unspecified; I25.2 Old myocardial infarction; Z82.49 Family history of ischemic heart disease and other diseases of the circulatory system; Z83.3 Family history of diabetes mellitus; Z87.11 Personal history of peptic ulcer disease; Z79.899 Other long term (current) drug therapy; Z90.49 Acquired absence of other specified parts of digestive tract; Z79.82 Long term (current) use of aspirin; Z79.4 Long term (current) use of insulin; Z71.51 Drug abuse counseling and surveillance of drug abuser; Z71.3 Dietary counseling and surveillance; X50.1XXA Overexertion from prolonged static or awkward postures, initial encounter; Y93.89 Activity, other specified; Y92.89 Other specified places as the place of occurrence of the external cause; Y99.8 Other external cause status
CPT/HCPCS: 36415; 71010; 73610; 80048; 80053; 80061; 80307; 82550; 82962; 83036; 83540; 83550; 83735; 83880; 84484; 85025; 85379; 85610; 85652; 85730; 86141; 87081; 92928; 92978; 93005; 93458; 94761; 96361; 96374; 96375; 99152; 99153; C1874; C1887; J1815; J2250; J2405

== ENCOUNTER 2017-05-08 14:17 | Inpatient (IN) | payer MEDICAID ==
[~2017-05-08] VITALS: Ht 182.9 cm; Wt 93.4 kg
[~2017-05-08 14:17] MED LIST changes: -CEL100T PO; -CHL4PW PO; +CLOP75TA28 PO; -DICY10CA12 PO; +DULO60CA PO; +FURO40TA PO; -INSUINJ37 SUBCUT; -LISI-706 PO; +LISI40TA PO; -MET25T PO; +METO10TA3 PO; +METO25TA5 PO; -ONDA4TAB5 PO; -SUCR1TAB PO
[2017-05-08] MEDS ORDERED: SODIUM CHLORIDE 0.9% 1,000 ML IV ONE (14:32)
[2017-05-08] MEDS ORDERED: ASPirin 81 mg TAB PO ONE (14:45)
[2017-05-08 14:58] LABS: Basophils # (auto) 0.1 uL; Basophils % (auto) 2.7 % (0.0-2.0); Eosinophils # (auto) 0.3 uL; Eosinophils % (auto) 5.7 % (0.0-7.0); Hematocrit 32.9 % (41.0-53.0); Hemoglobin 11.4 g/dL (13.5-17.5); Lymphocytes # (auto) 1.3 uL; Lymphocytes % (auto) 23.5 % (10.0-50.0); Mean Corpuscular Hgb Conc. 34.6 g/dL (32.0-36.0); Mean Corpuscular Volume 89.7 fL (80.0-100.0); Monocytes # (auto) 0.5 uL; Monocytes % (auto) 8.7 % (0.0-12.0); Neutrophils # (auto) 3.3 uL; Neutrophils % (auto) 59.4 % (37.0-80.0); Nucleated Red Blood Cells % 0.1 %; Platelet Count (auto) 238 10^3/uL (140-450); Red Blood Cells 3.67 10^6/uL (4.5-5.90); Red Cell Distribution Width 13.7 % (11.8-14.3); White Blood Cell 5.5 10^3/uL (4.4-10.8)
[2017-05-08 15:18] LABS: Albumin 3.3 g/dL (3.4-5.0); Anion Gap 6 (5-15); BUN/Creatinine Ratio 15.4; Blood Urea Nitrogen 31 mg/dL (7-18); Calcium 8.7 mg/dL (8.5-10.1); Carbon Dioxide 30 mmol/L (21-32); Chloride 107 mmol/L (98-107); GFR African American 46 mL/min; GFR Non-African American 38 mL/min; Glucose 116 mg/dL (74-106); Potassium 4.8 mmol/L (3.5-5.1); Sodium 143 mmol/L (136-145)
[2017-05-08] MEDS ORDERED: NITROGLYCERIN 0.4 MG SL TAB SL ONE (15:30)
[2017-05-08 15:32] LABS: Alanine Aminotransferase 28 U/L (16-61); Alkaline Phosphatase 92 U/L (45-117); Aspartate Aminotransferase 21 U/L (15-37); Bilirubin, Total 0.4 mg/dL (0.2-1.0); Total Protein 6.7 g/dL (6.4-8.2)
[2017-05-08 18:07] LABS: INR 0.93 (0.9-1.15); Partial Thromboplastin Time 24.7 sec (22.64-33.71); Prothrombin Time 10.1 sec (9.37-12.3)
[2017-05-08 18:27] LABS: Urine Bacteria NONE SEEN /hpf (None Seen); Urine Blood 2+ /uL (Negative); Urine Hyaline Cast FEW /lpf (0 - 2); Urine Specific Gravity 1.014 (1.001-1.035); Urine WBC 3 /hpf (0 - 3)
[2017-05-08] MEDS ORDERED: ACETAMINOPHEN 325 MG TAB PO ONE ×2 (21:00→21:05)
[2017-05-09] VITALS (9 sets, daily range): BP systolic 153–192; BP diastolic 79–97
[2017-05-09] MEDS ORDERED: DEXTROSE (50%) 50ML SYRG IV PRN (01:15)
[2017-05-09] MEDS ORDERED: ACETAMINOPHEN 500 MG TAB PO PRN (01:15)
[2017-05-09] MEDS: HYDROcodone-ACET 5/325MG TAB PO PRN ×3 (02:21→20:50)
[2017-05-09] MEDS: ACCU-CHEK COMFORT CURVE STRIP VI SCH ×4 (06:46→22:00)
[2017-05-09] MEDS: InsuLIN REG 1unit/0.01ml Soln (100units/ml) SC SCH ×3 (06:46→17:43)
[2017-05-09 07:02] LABS: Basophils # (auto) 0.1 uL; Basophils % (auto) 2.3 % (0.0-2.0); Eosinophils # (auto) 0.3 uL; Eosinophils % (auto) 5.3 % (0.0-7.0); Hematocrit 31.6 % (41.0-53.0); Hemoglobin 10.9 g/dL (13.5-17.5); Lymphocytes % (auto) 21.5 % (10.0-50.0); Mean Corpuscular Hemoglobin 30.7 pg (28.0-32.0); Mean Corpuscular Hgb Conc. 34.5 g/dL (32.0-36.0); Mean Corpuscular Volume 88.8 fL (80.0-100.0); Monocytes # (auto) 0.5 uL; Monocytes % (auto) 10.8 % (0.0-12.0); Neutrophils # (auto) 2.9 uL; Neutrophils % (auto) 60.1 % (37.0-80.0); Nucleated Red Blood Cells % 0.2 %; Platelet Count (auto) 208 10^3/uL (140-450); Red Blood Cells 3.55 10^6/uL (4.5-5.90); Red Cell Distribution Width 13.3 % (11.8-14.3); White Blood Cell 4.9 10^3/uL (4.4-10.8)
[2017-05-09 07:11] LABS: Anion Gap 7 (5-15); Calcium 8.7 mg/dL (8.5-10.1); Carbon Dioxide 26 mmol/L (21-32); Chloride 103 mmol/L (98-107); Glucose 305 mg/dL (74-106); Sodium 136 mmol/L (136-145)
[2017-05-09 07:19] LABS: BUN/Creatinine Ratio 15.9; Blood Urea Nitrogen 29 mg/dL (7-18); GFR African American 52 mL/min; GFR Non-African American 43 mL/min
[2017-05-09] MEDS: MORPHINE SULFATE 4 MG/ML SYR/VIAL IV PRN (08:44)
[2017-05-09] MEDS: ONDANSETRON HCL 4 MG/2 ML VIAL IV PRN ×4 (08:44→23:15)
[2017-05-09] MEDS ORDERED: METOPROLOL SUCCINATE XL 50 MG TAB PO SCH (10:00)
[2017-05-09] MEDS: DULoxetine HCL 30 MG CAP PO SCH (10:27)
[2017-05-09] MEDS: PANTOPRAZOLE 40 MG TAB PO SCH (10:27)
[2017-05-09] MEDS: COLCHICINE 0.6 MG TAB PO SCH ×2 (10:27→23:10)
[2017-05-09] MEDS: ASPirin-EC 81 mg tab PO SCH (10:27)
[2017-05-09] MEDS: CLOPIDOGREL BISULFATE 75 MG TAB PO SCH (10:28)
[2017-05-09] MEDS: ISOSORBIDE MONONITRATE 60 MG TAB PO SCH (10:28)
[2017-05-09] MEDS: FUROSEMIDE 20 MG TAB PO SCH (10:29)
[2017-05-09] MEDS ORDERED: InsuLIN REG 1unit/0.01ml Soln (100units/ml) SC SCH (22:00)
[2017-05-09] MEDS ORDERED: ATORVASTATIN 20 MG TAB PO SCH (22:00)
[2017-05-09] MEDS: METOPROLOL SUCCINATE XL 50 MG TAB PO SCH (23:11)
[2017-05-10] MEDS: NITROGLYCERIN 0.4 MG SL TAB SL PRN ×3 (04:17→04:29)
[2017-05-10] MEDS: ONDANSETRON HCL 4 MG/2 ML VIAL IV PRN ×3 (04:19→15:36)
[2017-05-10] MEDS: MORPHINE SULFATE 4 MG/ML SYR/VIAL IV PRN ×2 (04:45→09:44)
[2017-05-10 05:00] VITALS: BP 206/109
[2017-05-10 05:17] VITALS: BP 165/89
[2017-05-10] MEDS: ACCU-CHEK COMFORT CURVE STRIP VI SCH ×2 (06:18→11:30)
[2017-05-10 06:21] LABS: Basophils # (auto) 0.1 uL; Basophils % (auto) 1.7 % (0.0-2.0); Eosinophils # (auto) 0.1 uL; Eosinophils % (auto) 1.2 % (0.0-7.0); Hematocrit 34.6 % (41.0-53.0); Lymphocytes # (auto) 0.6 uL; Lymphocytes % (auto) 10.2 % (10.0-50.0); Mean Corpuscular Hemoglobin 30.8 pg (28.0-32.0); Mean Corpuscular Hgb Conc. 34.6 g/dL (32.0-36.0); Monocytes # (auto) 0.4 uL; Monocytes % (auto) 6.2 % (0.0-12.0); Neutrophils # (auto) 5.1 uL; Neutrophils % (auto) 80.7 % (37.0-80.0); Nucleated Red Blood Cells % 0.1 %; Platelet Count (auto) 228 10^3/uL (140-450); Red Blood Cells 3.88 10^6/uL (4.5-5.90); Red Cell Distribution Width 13.3 % (11.8-14.3); White Blood Cell 6.3 10^3/uL (4.4-10.8)
[2017-05-10] MEDS: InsuLIN REG 1unit/0.01ml Soln (100units/ml) SC SCH ×2 (06:22→12:18)
[2017-05-10 06:34] LABS: BUN/Creatinine Ratio 15.1; Calcium 9.1 mg/dL (8.5-10.1); Potassium 5.3 mmol/L (3.5-5.1)
[2017-05-10] MEDS ORDERED: INSULIN LANTUS (GLARGINE) 1 /0.01ml (100units/ml) SC SCH (07:00)
[2017-05-10 08:00] VITALS: BP 162/95
[2017-05-10 09:00] VITALS: BP 164/94
[2017-05-10] MEDS: DULoxetine HCL 30 MG CAP PO SCH (09:49)
[2017-05-10] MEDS: COLCHICINE 0.6 MG TAB PO SCH (09:49)
[2017-05-10] MEDS: FUROSEMIDE 20 MG TAB PO SCH (09:52)
[2017-05-10] MEDS: ASPirin-EC 81 mg tab PO SCH (09:52)
[2017-05-10] MEDS: PANTOPRAZOLE 40 MG TAB PO SCH (09:53)
[2017-05-10] MEDS: METOPROLOL SUCCINATE XL 50 MG TAB PO SCH (09:53)
[2017-05-10] MEDS: ISOSORBIDE MONONITRATE 60 MG TAB PO SCH (09:56)
[2017-05-10] MEDS: CLOPIDOGREL BISULFATE 75 MG TAB PO SCH (10:04)
[2017-05-10 13:00] VITALS: BP 158/78
[2017-05-10] MEDS: HYDROcodone-ACET 5/325MG TAB PO PRN (14:05)
[2017-05-10 17:09] VITALS: BP 158/96
== END 2017-05-10 17:30 | disposition home or self-care (01) | DRG 207 ==
LOC: ER 14:17 → TELE-WESTW 14:18
PROVIDERS: ADMIT Nurse Practitioner Family; ATTEND Internal Medicine
DX: I31.9 Disease of pericardium, unspecified (principal); E11.21 Type 2 diabetes mellitus with diabetic nephropathy; N17.9 Acute kidney failure, unspecified; I13.0 Hypertensive heart and chronic kidney disease with heart failure and stage 1 through stage 4 chronic kidney disease, or unspecified chronic kidney disease; N18.3 Chronic kidney disease, stage 3 (moderate); I50.9 Heart failure, unspecified; K29.70 Gastritis, unspecified, without bleeding; D63.8 Anemia in other chronic diseases classified elsewhere; E11.22 Type 2 diabetes mellitus with diabetic chronic kidney disease; E78.5 Hyperlipidemia, unspecified; F17.210 Nicotine dependence, cigarettes, uncomplicated; I25.10 Atherosclerotic heart disease of native coronary artery without angina pectoris; K21.9 Gastro-esophageal reflux disease without esophagitis; N20.0 Calculus of kidney; K27.9 Peptic ulcer, site unspecified, unspecified as acute or chronic, without hemorrhage or perforation; Z79.4 Long term (current) use of insulin; I25.2 Old myocardial infarction; Z82.3 Family history of stroke; Z82.49 Family history of ischemic heart disease and other diseases of the circulatory system; Z86.73 Personal history of transient ischemic attack (TIA), and cerebral infarction without residual deficits; Z95.5 Presence of coronary angioplasty implant and graft; Z87.11 Personal history of peptic ulcer disease; Z83.3 Family history of diabetes mellitus
CPT/HCPCS: 36415; 71045; 80048; 80053; 81001; 82962; 83036; 83880; 84484; 85025; 85379; 85610; 85652; 85730; 86141; 93005; 96360; 96361; 96372; J1815; J2405

== ENCOUNTER 2017-05-27 14:15 | Inpatient (IN) | payer MEDICAID ==
[~2017-05-27] VITALS: Ht 182.9 cm; Wt 5.4 kg
[2017-05-27 15:42] LABS: Basophils # (auto) 0.1 uL; Basophils % (auto) 2.8 % (0.0-2.0); Eosinophils # (auto) 0.2 uL; Eosinophils % (auto) 3.6 % (0.0-7.0); Hematocrit 37.3 % (41.0-53.0); Hemoglobin 12.5 g/dL (13.5-17.5); Lymphocytes # (auto) 0.8 uL; Lymphocytes % (auto) 16.7 % (10.0-50.0); Mean Corpuscular Hemoglobin 30.2 pg (28.0-32.0); Mean Corpuscular Hgb Conc. 33.6 g/dL (32.0-36.0); Mean Corpuscular Volume 89.9 fL (80.0-100.0); Monocytes # (auto) 0.5 uL; Monocytes % (auto) 10.4 % (0.0-12.0); Neutrophils # (auto) 3.1 uL; Neutrophils % (auto) 66.5 % (37.0-80.0); Nucleated Red Blood Cells % 0.1 %; Platelet Count (auto) 236 10^3/uL (140-450); Red Blood Cells 4.15 10^6/uL (4.5-5.90); Red Cell Distribution Width 13.3 % (11.8-14.3); White Blood Cell 4.7 10^3/uL (4.4-10.8)
[2017-05-27 16:01] LABS: Alanine Aminotransferase 24 U/L (16-61); Albumin 3.7 g/dL (3.4-5.0); Alkaline Phosphatase 97 U/L (45-117); Anion Gap 5 (5-15); Aspartate Aminotransferase 15 U/L (15-37); BUN/Creatinine Ratio 13.5; Bilirubin, Total 0.3 mg/dL (0.2-1.0); Blood Urea Nitrogen 26 mg/dL (7-18); Calcium 8.7 mg/dL (8.5-10.1); Carbon Dioxide 28 mmol/L (21-32); Chloride 105 mmol/L (98-107); GFR African American 49 mL/min; GFR Non-African American 40 mL/min; Glucose 230 mg/dL (74-106); Magnesium 2.6 mg/dL (1.6-2.6); Potassium 5.4 mmol/L (3.5-5.1); Sodium 138 mmol/L (136-145); Total Protein 7.4 g/dL (6.4-8.2)
[2017-05-27] MEDS ORDERED: ASPirin-EC 81 mg tab PO ONE (17:00)
[2017-05-27] MEDS ORDERED: cloNIDine HCL 0.1 MG TAB ONE (17:09)
[2017-05-27] MEDS ORDERED: cloNIDine HCL 0.1 MG TAB PO ONE (17:15)
[2017-05-27] MEDS ORDERED: hydrALAZINE HCL 20 MG/ML VL ONE (18:22)
[2017-05-27] MEDS ORDERED: hydrALAZINE HCL 20 MG/ML VL IV ONE (18:30)
[2017-05-27] MEDS ORDERED: HYDROcodone-ACET 10/325MG TAB PO ONE (18:30)
[2017-05-27] MEDS ORDERED: ACETAMINOPHEN 500 MG TAB PO PRN (21:15)
[2017-05-27] MEDS: ATORVASTATIN 20 MG TAB PO SCH (22:00)
[2017-05-28] MEDS ORDERED: DEXTROSE (50%) 50ML SYRG IV PRN ×2 (00:45→10:45)
[2017-05-28 05:00] VITALS: BP 158/86
[2017-05-28] MEDS: ONDANSETRON HCL 4 MG/2 ML VIAL IV PRN ×2 (05:23→18:22)
[2017-05-28] MEDS ORDERED: InsuLIN REG 1unit/0.01ml Soln (100units/ml) SC SCH ×2 (07:00→22:00)
[2017-05-28] MEDS ORDERED: ACCU-CHEK COMFORT CURVE STRIP VI SCH (07:00)
[2017-05-28 07:33] LABS: Basophils # (auto) 0.1 uL; Eosinophils # (auto) 0.2 uL; Eosinophils % (auto) 3.5 % (0.0-7.0); Hematocrit 34.5 % (41.0-53.0); Hemoglobin 11.9 g/dL (13.5-17.5); Lymphocytes # (auto) 1.1 uL; Lymphocytes % (auto) 20.4 % (10.0-50.0); Mean Corpuscular Hemoglobin 30.4 pg (28.0-32.0); Mean Corpuscular Hgb Conc. 34.4 g/dL (32.0-36.0); Mean Corpuscular Volume 88.3 fL (80.0-100.0); Monocytes # (auto) 0.4 uL; Monocytes % (auto) 8.3 % (0.0-12.0); Neutrophils # (auto) 3.6 uL; Neutrophils % (auto) 65.8 % (37.0-80.0); Platelet Count (auto) 222 10^3/uL (140-450); Red Blood Cells 3.91 10^6/uL (4.5-5.90); Red Cell Distribution Width 13.2 % (11.8-14.3); White Blood Cell 5.4 10^3/uL (4.4-10.8)
[2017-05-28 07:47] LABS: Calcium 8.7 mg/dL (8.5-10.1); Potassium 5.3 mmol/L (3.5-5.1)
[2017-05-28 07:50] LABS: BUN/Creatinine Ratio 14.5
[2017-05-28] MEDS: ISOSORBIDE MONONITRATE 60 MG TAB PO SCH (08:25)
[2017-05-28] MEDS: ASPirin-EC 81 mg tab PO SCH (08:26)
[2017-05-28] MEDS: CLOPIDOGREL BISULFATE 75 MG TAB PO SCH (08:26)
[2017-05-28] MEDS: PANTOPRAZOLE 40 MG TAB PO SCH (08:27)
[2017-05-28] MEDS: FUROSEMIDE 40 MG TAB PO SCH (08:27)
[2017-05-28] MEDS: METOPROLOL TARTRATE 25 MG TAB PO SCH (08:28)
[2017-05-28 09:00] VITALS: BP 182/108
[2017-05-28] MEDS: InsuLIN REG 1unit/0.01ml Soln (100units/ml) SC SCH ×2 (12:07→17:17)
[2017-05-28] MEDS: amLODIPine BESYLATE 5 MG TAB PO SCH (12:07)
[2017-05-28] MEDS: INSULIN LANTUS (GLARGINE) 1 /0.01ml (100units/ml) SC SCH (12:07)
[2017-05-28] MEDS: ACCU-CHEK COMFORT CURVE STRIP VI SCH ×3 (12:08→22:02)
[2017-05-28] MEDS: HYDROcodone-ACET 5/325MG TAB PO PRN ×2 (12:09→18:46)
[2017-05-28 13:00] VITALS: BP 142/86
[2017-05-28 17:00] VITALS: BP 179/99
[2017-05-28] MEDS ORDERED: hydrALAZINE HCL 20 MG/ML VL IV PRN (17:00)
[2017-05-28] MEDS ORDERED: LISINOPRIL 20 MG TAB PO ONE (17:00)
[2017-05-28] MEDS ORDERED: LISINOPRIL 10 MG TAB ONE (17:11)
[2017-05-28] MEDS ORDERED: INSLANTI SC (17:14)
[2017-05-28 22:00] VITALS: BP 145/78
[2017-05-28] MEDS: ATORVASTATIN 20 MG TAB PO SCH (22:01)
[2017-05-29] MEDS: ONDANSETRON HCL 4 MG/2 ML VIAL IV PRN (01:15)
[2017-05-29] MEDS: HYDROcodone-ACET 5/325MG TAB PO PRN (01:16)
[2017-05-29 05:00] VITALS: BP 148/88
[2017-05-29 06:45] LABS: Basophils # (auto) 0.1 uL; Basophils % (auto) 1.9 % (0.0-2.0); Eosinophils # (auto) 0.1 uL; Eosinophils % (auto) 2.5 % (0.0-7.0); Hematocrit 36.1 % (41.0-53.0); Hemoglobin 12.5 g/dL (13.5-17.5); Lymphocytes # (auto) 1.3 uL; Lymphocytes % (auto) 22.5 % (10.0-50.0); Mean Corpuscular Hemoglobin 30.5 pg (28.0-32.0); Mean Corpuscular Hgb Conc. 34.5 g/dL (32.0-36.0); Mean Corpuscular Volume 88.4 fL (80.0-100.0); Monocytes # (auto) 0.5 uL; Monocytes % (auto) 7.9 % (0.0-12.0); Neutrophils # (auto) 3.8 uL; Neutrophils % (auto) 65.2 % (37.0-80.0); Platelet Count (auto) 230 10^3/uL (140-450); Red Blood Cells 4.09 10^6/uL (4.5-5.90); Red Cell Distribution Width 13.3 % (11.8-14.3); White Blood Cell 5.8 10^3/uL (4.4-10.8)
[2017-05-29 06:55] LABS: BUN/Creatinine Ratio 13.6; Calcium 9.1 mg/dL (8.5-10.1); Potassium 4.6 mmol/L (3.5-5.1)
[2017-05-29] MEDS: InsuLIN REG 1unit/0.01ml Soln (100units/ml) SC SCH ×2 (07:14→12:30)
[2017-05-29] MEDS: ACCU-CHEK COMFORT CURVE STRIP VI SCH ×2 (07:14→11:59)
[2017-05-29 08:50] VITALS: BP 153/86
[2017-05-29] MEDS ORDERED: LISINOPRIL 20 MG TAB PO SCH ×2 (10:00)
[2017-05-29] MEDS: ASPirin-EC 81 mg tab PO SCH (10:02)
[2017-05-29] MEDS: CLOPIDOGREL BISULFATE 75 MG TAB PO SCH (10:02)
[2017-05-29] MEDS: ISOSORBIDE MONONITRATE 60 MG TAB PO SCH (10:03)
[2017-05-29] MEDS: FUROSEMIDE 40 MG TAB PO SCH (10:03)
[2017-05-29] MEDS: amLODIPine BESYLATE 5 MG TAB PO SCH (10:03)
[2017-05-29] MEDS: PANTOPRAZOLE 40 MG TAB PO SCH (10:04)
[2017-05-29] MEDS: METOPROLOL TARTRATE 25 MG TAB PO SCH (10:04)
[2017-05-29] MEDS: INSULIN LANTUS (GLARGINE) 1 /0.01ml (100units/ml) SC SCH (10:05)
[2017-05-29 12:00] VITALS: BP 146/83
== END 2017-05-29 13:00 | disposition home or self-care (01) | DRG 194 ==
LOC: ER 14:15 → EDBD 14:15 → TELE 14:16 → TELE-EAST 22:00
PROVIDERS: ADMIT Nurse Practitioner Family; ATTEND Internal Medicine
DX: I13.0 Hypertensive heart and chronic kidney disease with heart failure and stage 1 through stage 4 chronic kidney disease, or unspecified chronic kidney disease (principal); G93.41 Metabolic encephalopathy; E11.22 Type 2 diabetes mellitus with diabetic chronic kidney disease; E11.649 Type 2 diabetes mellitus with hypoglycemia without coma; I50.9 Heart failure, unspecified; E11.65 Type 2 diabetes mellitus with hyperglycemia; E78.5 Hyperlipidemia, unspecified; F17.210 Nicotine dependence, cigarettes, uncomplicated; I25.10 Atherosclerotic heart disease of native coronary artery without angina pectoris; K29.70 Gastritis, unspecified, without bleeding; F32.9 Major depressive disorder, single episode, unspecified; N18.3 Chronic kidney disease, stage 3 (moderate); Z79.4 Long term (current) use of insulin; Z82.49 Family history of ischemic heart disease and other diseases of the circulatory system; Z83.3 Family history of diabetes mellitus; I25.2 Old myocardial infarction; Z86.73 Personal history of transient ischemic attack (TIA), and cerebral infarction without residual deficits; Z87.11 Personal history of peptic ulcer disease
CPT/HCPCS: 36415; 71045; 80048; 80053; 82962; 83036; 83735; 84484; 85025; 87081; 93005; 94761; 96374; J1815; J2405

== ENCOUNTER 2017-06-09 10:35 | Emergency (ER) | payer MEDICAID ==
[~2017-06-09] VITALS: Ht 182.9 cm; Wt 83.9 kg
[~2017-06-09 10:35] MED LIST changes: +INSLANTI SC
[2017-06-09 11:08] LABS: Urine Bacteria NONE SEEN /hpf (None Seen); Urine Blood 2+ /uL (Negative); Urine Hyaline Cast FEW /lpf (0 - 2); Urine Specific Gravity 1.021 (1.001-1.035); Urine WBC <1 /hpf (0 - 3)
[2017-06-09 11:14] LABS: Basophils # (auto) 0.1 uL; Eosinophils # (auto) 0.1 uL; Eosinophils % (auto) 1.4 % (0.0-7.0); Hematocrit 37.1 % (41.0-53.0); Hemoglobin 12.7 g/dL (13.5-17.5); Lymphocytes # (auto) 0.8 uL; Lymphocytes % (auto) 11.6 % (10.0-50.0); Mean Corpuscular Hemoglobin 30.2 pg (28.0-32.0); Mean Corpuscular Hgb Conc. 34.1 g/dL (32.0-36.0); Mean Corpuscular Volume 88.8 fL (80.0-100.0); Monocytes # (auto) 0.4 uL; Monocytes % (auto) 5.3 % (0.0-12.0); Neutrophils # (auto) 5.5 uL; Neutrophils % (auto) 79.7 % (37.0-80.0); Platelet Count (auto) 241 10^3/uL (140-450); Red Blood Cells 4.18 10^6/uL (4.5-5.90); Red Cell Distribution Width 13.5 % (11.8-14.3); White Blood Cell 6.9 10^3/uL (4.4-10.8)
[2017-06-09] MEDS ORDERED: SODIUM CHLORIDE 0.9% 1,000 ML IV ONE ×2 (11:15→13:45)
[2017-06-09] MEDS ORDERED: PROMETHAZINE HCL 25 MG/ML 1ML IV ONE ×2 (11:30→15:15)
[2017-06-09] MEDS ORDERED: LORazepam 2MG/ML-1ML VIAL IV ONE (11:30)
[2017-06-09 11:37] LABS: BUN/Creatinine Ratio 13.2; Bilirubin, Total 0.5 mg/dL (0.2-1.0); Calcium 9.4 mg/dL (8.5-10.1); Potassium 3.8 mmol/L (3.5-5.1); Total Protein 7.9 g/dL (6.4-8.2)
[2017-06-09 11:44] LABS: Alcohol, Urine < 3.0 mg/dL (0-5); Amphetamine Screen, Urine NEGATIVE (NEGATIVE); Barbiturate Scree,Urine NEGATIVE (NEGATIVE); Benzodiazephine Screen, Urine NEGATIVE (NEGATIVE); Cannabinoid Screen, Urine POSITIVE (NEGATIVE); Cocaine Screen, Urine NEGATIVE (NEGATIVE); Opiate Scree,Urine NEGATIVE (NEGATIVE); Phencyclidine Screen, Urine NEGATIVE (NEGATIVE)
[2017-06-09] MEDS ORDERED: InsuLIN REG 1unit/0.01ml Soln (100units/ml) SC ONE (11:45)
[2017-06-09] MEDS ORDERED: InsuLIN REG 1unit/0.01ml Soln (100units/ml) IV ONE (12:00)
[2017-06-09] MEDS ORDERED: LABETALOL HCL 5 MG/ML ML 20ML VIAL IV ONE ×2 (13:00→14:30)
[2017-06-09 14:25] VITALS: BP 208/99
[2017-06-09] MEDS ORDERED: PROMETHAZINE HCL 25 MG/ML 1ML ONE (15:09)
[2017-06-09] MEDS ORDERED: amLODIPine BESYLATE 5 MG TAB PO ONE (15:15)
== END 2017-06-09 15:33 | disposition home or self-care (01) ==
LOC: EDBD 10:35 → ER 10:35
DX: R11.2 Nausea with vomiting, unspecified (principal); F12.10 Cannabis abuse, uncomplicated; I11.0 Hypertensive heart disease with heart failure; I50.9 Heart failure, unspecified; E78.5 Hyperlipidemia, unspecified; E11.9 Type 2 diabetes mellitus without complications; F17.210 Nicotine dependence, cigarettes, uncomplicated; Z86.73 Personal history of transient ischemic attack (TIA), and cerebral infarction without residual deficits; Z90.49 Acquired absence of other specified parts of digestive tract; Z98.61 Coronary angioplasty status; Z79.899 Other long term (current) drug therapy
CPT/HCPCS: 36415; 36600; 80053; 80307; 81001; 82805; 82962; 85025; 96361; 96374; 96375; 96376; 99285; J1815; J2060; J2550; J7030

== ENCOUNTER 2017-07-21 10:17 | Inpatient (IN) | payer MEDICAID ==
[~2017-07-21] VITALS: Ht 185.4 cm; Wt 92.9 kg
[2017-07-21] MEDS ORDERED: SODIUM CHLORIDE 0.9% 1,000 ML IV ONE (10:31)
[2017-07-21] MEDS ORDERED: InsuLIN R (HUMAN) 100 UNITS in SODIUM CHL 0.9% 99 ML IV SCH (10:40)
[2017-07-21] MEDS ORDERED: DEXTROSE (50%) 50ML SYRG IV PRN ×2 (10:45→12:00)
[2017-07-21 11:24] LABS: Basophils # (auto) 0 uL; Basophils % (auto) 0.4 % (0.0-2.0); Eosinophils # (auto) 0 uL; Hematocrit 36.1 % (41.0-53.0); Hemoglobin 11.7 g/dL (13.5-17.5); Lymphocytes # (auto) 0.7 uL; Lymphocytes % (auto) 5.5 % (10.0-50.0); Mean Corpuscular Hemoglobin 30.2 pg (28.0-32.0); Mean Corpuscular Hgb Conc. 32.3 g/dL (32.0-36.0); Mean Corpuscular Volume 93.7 fL (80.0-100.0); Monocytes # (auto) 0.6 uL; Monocytes % (auto) 5.2 % (0.0-12.0); Neutrophils # (auto) 10.9 uL; Neutrophils % (auto) 88.9 % (37.0-80.0); Platelet Count (auto) 254 10^3/uL (140-450); Red Blood Cells 3.86 10^6/uL (4.5-5.90); Red Cell Distribution Width 14.8 % (11.8-14.3); White Blood Cell 12.3 10^3/uL (4.4-10.8)
[2017-07-21] MEDS ORDERED: ONDANSETRON HCL 4 MG/2 ML VIAL IV ONE (11:30)
[2017-07-21 11:55] LABS: Albumin 3.9 g/dL (3.4-5.0); BUN/Creatinine Ratio 21.4; Calcium 9.4 mg/dL (8.5-10.1)
[2017-07-21] MEDS ORDERED: ACCU-CHEK COMFORT CURVE STRIP VI SCH (12:00)
[2017-07-21] MEDS ORDERED: LORazepam 2MG/ML-1ML VIAL IV PRN (12:00)
[2017-07-21] MEDS ORDERED: NITROGLYCERIN 0.4 MG SL TAB SL PRN (12:00)
[2017-07-21] MEDS ORDERED: PANTOPRAZOLE 40 MG/10 ML VIAL IV ONE (12:00)
[2017-07-21] MEDS ORDERED: MORPHINE SULFATE 4 MG/ML SYR/VIAL IV PRN ×3 (12:00)
[2017-07-21 12:06] LABS: Potassium 6.1 mmol/L (3.5-5.1)
[2017-07-21 12:07] LABS: Bilirubin, Total 0.9 mg/dL (0.2-1.0); Total Protein 8.2 g/dL (6.4-8.2)
[2017-07-21] MEDS ORDERED: InsuLIN REG 1unit/0.01ml Soln (100units/ml) IV ONE (12:15)
[2017-07-21] MEDS ORDERED: SODIUM BICARBONATE 8.4 % INJ 50ML VIAL IV ONE (12:15)
[2017-07-21] MEDS ORDERED: CALCIUM GLUC 4.65meq/50ml D5AE 50 ML IV ONE (12:15)
[2017-07-21] MEDS: InsuLIN R (HUMAN) 100 UNITS in SODIUM CHL 0.9% 99 ML IV SCH ×3 (12:22→21:30)
[2017-07-21] MEDS: ACCU-CHEK COMFORT CURVE STRIP VI SCH ×9 (12:26→23:00)
[2017-07-21 12:42] LABS: Amylase 42 U/L (25-115); Lipase 140 U/L (73-393)
[2017-07-21] MEDS: PROMETHAZINE HCL 25 MG/ML 1ML IV PRN ×2 (13:27→17:47)
[2017-07-21] MEDS: SODIUM CHLORIDE 0.9% 1,000 ML IV SCH ×3 (13:30→20:42)
[2017-07-21 13:37] LABS: Urine Bacteria NONE SEEN /hpf (None Seen); Urine Blood 1+ /uL (Negative); Urine Specific Gravity 1.022 (1.001-1.035); Urine WBC <1 /hpf (0 - 3)
[2017-07-21] MEDS ORDERED: SODIUM CHLORIDE 0.9% 1,000 ML IV SCH (15:56)
[2017-07-21] MEDS ORDERED: MORPHINE SULFATE 8mg/ml INJ SDV IV PRN ×2 (16:30→22:15)
[2017-07-21] MEDS: MORPHINE SULFATE 8mg/ml INJ SDV IV PRN (17:46)
[2017-07-21 19:15] LABS: Hemoglobin 10.7 g/dL (13.5-17.5)
[2017-07-21 20:48] LABS: Calcium 8.8 mg/dL (8.5-10.1); Potassium 4.2 mmol/L (3.5-5.1)
[2017-07-21] MEDS ORDERED: AMLO5TAB2 PO (21:19)
[2017-07-21] MEDS ORDERED: CLOP75TA41 PO (21:23)
[2017-07-21] MEDS ORDERED: ONDA4TAB5 PO (21:23)
[2017-07-21] MEDS ORDERED: MIRT30TA OR (21:25)
[2017-07-21] MEDS ORDERED: BUSP15TA60 PO (21:25)
[2017-07-21] MEDS ORDERED: METOPROLOL SUCCINATE XL 50 MG TAB PO ONE (22:00)
[2017-07-21] MEDS ORDERED: ONDANSETRON HCL 4 MG/2 ML VIAL ONE (23:58)
[2017-07-22] MEDS: MORPHINE SULFATE 8mg/ml INJ SDV IV PRN (00:07)
[2017-07-22] MEDS: ONDANSETRON HCL 4 MG/2 ML VIAL IV PRN ×2 (00:32→08:50)
[2017-07-22 01:30] LABS: Hematocrit 29.7 % (41.0-53.0); Hemoglobin 10.2 g/dL (13.5-17.5)
[2017-07-22] MEDS ORDERED: LABETALOL HCL 5 MG/ML ML 20ML VIAL IV ONE (01:30)
[2017-07-22] MEDS: ACCU-CHEK COMFORT CURVE STRIP VI SCH ×9 (01:38→22:01)
[2017-07-22 01:43] LABS: Calcium 8.5 mg/dL (8.5-10.1)
[2017-07-22 01:46] LABS: BUN/Creatinine Ratio 28.5
[2017-07-22] MEDS: SODIUM CHLORIDE 0.9% 1,000 ML IV SCH ×4 (02:11→22:00)
[2017-07-22] MEDS: InsuLIN R (HUMAN) 100 UNITS in SODIUM CHL 0.9% 99 ML IV SCH ×3 (03:17)
[2017-07-22 06:03] LABS: Basophils # (auto) 0.1 uL; Basophils % (auto) 0.5 % (0.0-2.0); Eosinophils # (auto) 0 uL; Eosinophils % (auto) 0.1 % (0.0-7.0); Hematocrit 29.8 % (41.0-53.0); Hemoglobin 10.3 g/dL (13.5-17.5); Lymphocytes # (auto) 0.8 uL; Lymphocytes % (auto) 6.1 % (10.0-50.0); Mean Corpuscular Hemoglobin 31.1 pg (28.0-32.0); Mean Corpuscular Hgb Conc. 34.6 g/dL (32.0-36.0); Mean Corpuscular Volume 89.9 fL (80.0-100.0); Monocytes # (auto) 0.9 uL; Monocytes % (auto) 7.1 % (0.0-12.0); Neutrophils # (auto) 11.3 uL; Neutrophils % (auto) 86.2 % (37.0-80.0); Platelet Count (auto) 219 10^3/uL (140-450); Red Blood Cells 3.32 10^6/uL (4.5-5.90); Red Cell Distribution Width 14.4 % (11.8-14.3); White Blood Cell 13.1 10^3/uL (4.4-10.8)
[2017-07-22 06:17] LABS: BUN/Creatinine Ratio 26.5; Bilirubin, Total 0.4 mg/dL (0.2-1.0); Calcium 8.7 mg/dL (8.5-10.1); Potassium 3.8 mmol/L (3.5-5.1); Total Protein 6.2 g/dL (6.4-8.2)
[2017-07-22 06:24] LABS: Cholesterol 223 mg/dL (< 200); HDL Cholesterol 70 mg/dL (40-59); LDL Cholesterol 141 mg/dL (< 100); Triglycerides 82 mg/dL (< 150)
[2017-07-22] MEDS: ISOSORBIDE MONONITRATE 60 MG TAB PO SCH (09:00)
[2017-07-22] MEDS: LISINOPRIL 20 MG TAB PO SCH (09:00)
[2017-07-22] MEDS: METOPROLOL SUCCINATE XL 50 MG TAB PO SCH (09:01)
[2017-07-22] MEDS ORDERED: PANTOPRAZOLE 40 MG/10 ML VIAL IV SCH (10:00)
[2017-07-22 12:24] LABS: BUN/Creatinine Ratio 22.8; Calcium 8.4 mg/dL (8.5-10.1)
[2017-07-22] MEDS ORDERED: InsuLIN REG 1unit/0.01ml Soln (100units/ml) SC ONE (13:00)
[2017-07-22] MEDS ORDERED: DEXTROSE (50%) 50ML SYRG IV PRN ×2 (13:00)
[2017-07-22] MEDS ORDERED: FAMOTIDINE (10MG/ML) 2ML VL IV ONE (14:00)
[2017-07-22 16:49] LABS: BUN/Creatinine Ratio 21.7
[2017-07-22 16:58] LABS: Basophils # (auto) 0.1 uL; Basophils % (auto) 0.6 % (0.0-2.0); Eosinophils # (auto) 0 uL; Eosinophils % (auto) 0.1 % (0.0-7.0); Hemoglobin 9.9 g/dL (13.5-17.5); Lymphocytes # (auto) 1.1 uL; Lymphocytes % (auto) 11.7 % (10.0-50.0); Mean Corpuscular Hgb Conc. 34.1 g/dL (32.0-36.0); Mean Corpuscular Volume 90.9 fL (80.0-100.0); Monocytes # (auto) 0.8 uL; Monocytes % (auto) 8.3 % (0.0-12.0); Neutrophils # (auto) 7.6 uL; Neutrophils % (auto) 79.3 % (37.0-80.0); Platelet Count (auto) 203 10^3/uL (140-450); Red Cell Distribution Width 14.8 % (11.8-14.3); White Blood Cell 9.6 10^3/uL (4.4-10.8)
[2017-07-22] MEDS ORDERED: InsuLIN REG 1unit/0.01ml Soln (100units/ml) SC SCH (17:00)
[2017-07-22] MEDS ORDERED: INSULIN LANTUS (GLARGINE) 1 /0.01ml (100units/ml) SC ONE (17:00)
[2017-07-22] MEDS ORDERED: ACCU-CHEK COMFORT CURVE STRIP VI SCH (17:00)
[2017-07-22] MEDS: InsuLIN REG 1unit/0.01ml Soln (100units/ml) SC SCH ×2 (17:09→22:01)
[2017-07-22] MEDS ORDERED: LEVOFLOXACIN 500MG 100 ML IV ONE (17:30)
[2017-07-22] MEDS ORDERED: LEVOFLOXACIN 500MG 100 ML IV SCH (18:00)
[2017-07-22] MEDS: PROMETHAZINE HCL 25 MG/ML 1ML IV PRN (19:43)
[2017-07-22 20:30] VITALS: BP 161/79
[2017-07-22 22:00] VITALS: BP 161/79
[2017-07-22] MEDS: FAMOTIDINE (10MG/ML) 2ML VL IV SCH (22:00)
[2017-07-22] MEDS ORDERED: MORPHINE SULFATE 4 MG/ML SYR/VIAL IV ONE (22:15)
[2017-07-23] MEDS: SODIUM CHLORIDE 0.9% 1,000 ML IV SCH ×3 (03:39→16:35)
[2017-07-23] MEDS: PROMETHAZINE HCL 25 MG/ML 1ML IV PRN ×2 (03:52→15:18)
[2017-07-23 05:00] VITALS: BP 183/93
[2017-07-23] MEDS: InsuLIN REG 1unit/0.01ml Soln (100units/ml) SC SCH ×4 (06:36→22:50)
[2017-07-23] MEDS: ACCU-CHEK COMFORT CURVE STRIP VI SCH ×4 (06:36→22:00)
[2017-07-23] MEDS: HYDROcodone-ACET 5/325MG TAB PO PRN ×3 (06:37→15:17)
[2017-07-23] MEDS ORDERED: cloNIDine HCL 0.1 MG TAB PO ONE (07:00)
[2017-07-23 07:12] LABS: Basophils # (auto) 0.1 uL; Basophils % (auto) 0.7 % (0.0-2.0); Eosinophils # (auto) 0 uL; Eosinophils % (auto) 0.1 % (0.0-7.0); Hematocrit 27.3 % (41.0-53.0); Hemoglobin 9.4 g/dL (13.5-17.5); Lymphocytes % (auto) 12.6 % (10.0-50.0); Mean Corpuscular Hgb Conc. 34.5 g/dL (32.0-36.0); Mean Corpuscular Volume 89.9 fL (80.0-100.0); Monocytes # (auto) 0.6 uL; Neutrophils # (auto) 6.3 uL; Neutrophils % (auto) 78.6 % (37.0-80.0); Platelet Count (auto) 174 10^3/uL (140-450); Red Blood Cells 3.04 10^6/uL (4.5-5.90); Red Cell Distribution Width 14.7 % (11.8-14.3)
[2017-07-23 07:29] LABS: Albumin 2.5 g/dL (3.4-5.0); BUN/Creatinine Ratio 16.8; Calcium 7.8 mg/dL (8.5-10.1); Potassium 3.8 mmol/L (3.5-5.1)
[2017-07-23 07:31] LABS: Bilirubin, Total 0.5 mg/dL (0.2-1.0); Total Protein 5.4 g/dL (6.4-8.2)
[2017-07-23 09:34] VITALS: BP 154/77
[2017-07-23] MEDS: FAMOTIDINE (10MG/ML) 2ML VL IV SCH (10:19)
[2017-07-23] MEDS: ISOSORBIDE MONONITRATE 60 MG TAB PO SCH (10:20)
[2017-07-23] MEDS: LISINOPRIL 20 MG TAB PO SCH (10:20)
[2017-07-23] MEDS: METOPROLOL SUCCINATE XL 50 MG TAB PO SCH (10:21)
[2017-07-23 12:31] VITALS: BP 157/91
[2017-07-23] MEDS ORDERED: PANTOPRAZOLE 40 MG TAB PO ONE (16:30)
[2017-07-23 17:00] VITALS: BP 169/93
[2017-07-23 22:00] VITALS: BP 156/79
[2017-07-24 05:09] VITALS: BP 159/75
[2017-07-24 06:43] LABS: Basophils # (auto) 0.1 uL; Basophils % (auto) 1.3 % (0.0-2.0); Eosinophils # (auto) 0.1 uL; Eosinophils % (auto) 1.6 % (0.0-7.0); Hematocrit 28.9 % (41.0-53.0); Hemoglobin 10.1 g/dL (13.5-17.5); Lymphocytes # (auto) 0.9 uL; Lymphocytes % (auto) 15.7 % (10.0-50.0); Mean Corpuscular Hemoglobin 31.1 pg (28.0-32.0); Mean Corpuscular Hgb Conc. 34.8 g/dL (32.0-36.0); Mean Corpuscular Volume 89.4 fL (80.0-100.0); Monocytes # (auto) 0.6 uL; Monocytes % (auto) 10.8 % (0.0-12.0); Neutrophils # (auto) 4.1 uL; Neutrophils % (auto) 70.6 % (37.0-80.0); Platelet Count (auto) 181 10^3/uL (140-450); Red Blood Cells 3.23 10^6/uL (4.5-5.90); Red Cell Distribution Width 13.9 % (11.8-14.3); White Blood Cell 5.8 10^3/uL (4.4-10.8)
[2017-07-24] MEDS: ACCU-CHEK COMFORT CURVE STRIP VI SCH ×2 (06:43→12:00)
[2017-07-24] MEDS: InsuLIN REG 1unit/0.01ml Soln (100units/ml) SC SCH ×2 (06:43→12:00)
[2017-07-24] MEDS: SODIUM CHLORIDE 0.9% 1,000 ML IV SCH (06:43)
[2017-07-24] MEDS: ONDANSETRON HCL 4 MG/2 ML VIAL IV PRN ×2 (06:44→11:37)
[2017-07-24 07:02] LABS: Albumin 2.6 g/dL (3.4-5.0); BUN/Creatinine Ratio 13.4; Calcium 8.2 mg/dL (8.5-10.1)
[2017-07-24 07:04] LABS: Bilirubin, Total 0.8 mg/dL (0.2-1.0); Total Protein 5.7 g/dL (6.4-8.2)
[2017-07-24 09:00] VITALS: BP 188/90
[2017-07-24] MEDS ORDERED: PANTOPRAZOLE 40 MG TAB PO SCH (10:00)
[2017-07-24] MEDS: ISOSORBIDE MONONITRATE 60 MG TAB PO SCH (10:44)
[2017-07-24] MEDS: METOPROLOL SUCCINATE XL 50 MG TAB PO SCH (10:45)
[2017-07-24] MEDS: LISINOPRIL 20 MG TAB PO SCH (10:50)
[2017-07-24 13:00] VITALS: BP 126/92
== END 2017-07-24 14:58 | disposition home or self-care (01) | DRG 253 ==
LOC: ER 10:19 → TELE 10:20 → TELE-CENTR 07-22 19:54
PROVIDERS: ADMIT Internal Medicine; ATTEND Internal Medicine
DX: K92.2 Gastrointestinal hemorrhage, unspecified (principal); N17.0 Acute kidney failure with tubular necrosis; E11.10 Type 2 diabetes mellitus with ketoacidosis without coma; I50.42 Chronic combined systolic (congestive) and diastolic (congestive) heart failure; I13.0 Hypertensive heart and chronic kidney disease with heart failure and stage 1 through stage 4 chronic kidney disease, or unspecified chronic kidney disease; N18.3 Chronic kidney disease, stage 3 (moderate); I25.10 Atherosclerotic heart disease of native coronary artery without angina pectoris; E11.21 Type 2 diabetes mellitus with diabetic nephropathy; K21.9 Gastro-esophageal reflux disease without esophagitis; E11.22 Type 2 diabetes mellitus with diabetic chronic kidney disease; E78.5 Hyperlipidemia, unspecified; Z80.8 Family history of malignant neoplasm of other organs or systems; R10.9 Unspecified abdominal pain; Z82.3 Family history of stroke; Z82.49 Family history of ischemic heart disease and other diseases of the circulatory system; Z83.3 Family history of diabetes mellitus; Z87.11 Personal history of peptic ulcer disease; Z95.5 Presence of coronary angioplasty implant and graft; Z90.49 Acquired absence of other specified parts of digestive tract; Z79.899 Other long term (current) drug therapy
CPT/HCPCS: 36415; 36600; 71045; 74176; 80048; 80053; 80061; 81001; 82010; 82150; 82805; 82962; 83036; 83690; 83735; 85014; 85018; 85025; 85045; 87086; 93005; 96365; 96375; C9113; J0610; J1815; J1956; J2270; J2405; J3490

== ENCOUNTER 2017-07-25 23:02 | Emergency (ER) | payer MEDICAID ==
[~2017-07-25] VITALS: Ht 182.9 cm; Wt 86.2 kg
[~2017-07-25 23:02] MED LIST changes: +AMLO5TAB2 PO; +BUSP15TA60 PO; +CLOP75TA41 PO; +MIRT30TA OR; +ONDA4TAB5 PO
[2017-07-26] MEDS ORDERED: FUROSEMIDE 100 MG/10ML VIAL IV ONE (00:45)
[2017-07-26 00:55] LABS: Basophils # (auto) 0.1 uL; Basophils % (auto) 1.4 % (0.0-2.0); Eosinophils # (auto) 0.3 uL; Eosinophils % (auto) 5.2 % (0.0-7.0); Hematocrit 29.3 % (41.0-53.0); Hemoglobin 10.2 g/dL (13.5-17.5); Lymphocytes # (auto) 1.7 uL; Lymphocytes % (auto) 28.1 % (10.0-50.0); Mean Corpuscular Volume 88.6 fL (80.0-100.0); Monocytes # (auto) 0.6 uL; Monocytes % (auto) 10.2 % (0.0-12.0); Neutrophils # (auto) 3.4 uL; Neutrophils % (auto) 55.1 % (37.0-80.0); Platelet Count (auto) 206 10^3/uL (140-450); Red Blood Cells 3.31 10^6/uL (4.5-5.90); Red Cell Distribution Width 14.2 % (11.8-14.3); White Blood Cell 6.1 10^3/uL (4.4-10.8)
[2017-07-26 01:04] LABS: INR 0.87 (0.9-1.15); Partial Thromboplastin Time 22.6 sec (23.78-33.04); Prothrombin Time 9.4 sec (9.27-12.13)
[2017-07-26 01:11] LABS: Albumin 2.9 g/dL (3.4-5.0); BUN/Creatinine Ratio 14.6; Calcium 8.3 mg/dL (8.5-10.1); Potassium 3.8 mmol/L (3.5-5.1)
[2017-07-26 01:16] LABS: Magnesium 2.1 mg/dL (1.6-2.6)
[2017-07-26 01:22] LABS: Bilirubin, Total 0.3 mg/dL (0.2-1.0); Total Protein 6.2 g/dL (6.4-8.2)
[2017-07-26] MEDS ORDERED: SODIUM CHLORIDE 0.9% 1,000 ML IV ONE (02:15)
[2017-07-26 04:18] LABS: Urine Bacteria FEW /hpf (None Seen); Urine Blood TRACE /uL (Negative); Urine Hyaline Cast FEW /lpf (0 - 2); Urine Mucus FEW (None Seen); Urine Specific Gravity 1.006 (1.001-1.035); Urine WBC <1 /hpf (0 - 3)
[2017-07-26 05:24] VITALS: BP 119/54
== END 2017-07-26 05:39 | disposition home or self-care (01) ==
LOC: ER 23:07
DX: E11.22 Type 2 diabetes mellitus with diabetic chronic kidney disease (principal); I13.0 Hypertensive heart and chronic kidney disease with heart failure and stage 1 through stage 4 chronic kidney disease, or unspecified chronic kidney disease; N18.3 Chronic kidney disease, stage 3 (moderate); I50.9 Heart failure, unspecified; I25.10 Atherosclerotic heart disease of native coronary artery without angina pectoris; F17.210 Nicotine dependence, cigarettes, uncomplicated; Z79.4 Long term (current) use of insulin; Z79.02 Long term (current) use of antithrombotics/antiplatelets; Z79.82 Long term (current) use of aspirin; Z90.49 Acquired absence of other specified parts of digestive tract; Z98.61 Coronary angioplasty status
CPT/HCPCS: 36415; 71045; 80053; 81001; 83735; 83880; 84484; 85025; 85610; 85730; 93005; 94761; 96374; 99285; J1940

== ENCOUNTER 2017-10-31 13:52 | Inpatient (IN) | payer MEDICARE, MEDICAID ==
[~2017-10-31] VITALS: Ht 185.4 cm; Wt 86.3 kg
[~2017-10-31 13:52] MED LIST changes: -BUSP15TA60 PO; -CLOP75TA28 PO; -FURO40TA PO; +HYDR50TA15 PO; -LISI40TA PO; +MET25T PO; -METO25TA5 PO; -MIRT30TA OR
[2017-10-31] MEDS ORDERED: ASPirin 81 mg TAB PO ONE (14:15)
[2017-10-31] MEDS ORDERED: SODIUM CHLORIDE 0.9% 1,000 ML IV ONE ×2 (14:46)
[2017-10-31 14:50] LABS: Basophils # (auto) 0.1 uL; Basophils % (auto) 1.5 % (0.0-2.0); Eosinophils # (auto) 0.1 uL; Eosinophils % (auto) 1.1 % (0.0-7.0); Hemoglobin 12.8 g/dL (13.5-17.5); Lymphocytes # (auto) 0.8 uL; Lymphocytes % (auto) 13.1 % (10.0-50.0); Mean Corpuscular Hemoglobin 30.7 pg (28.0-32.0); Mean Corpuscular Hgb Conc. 34.4 g/dL (32.0-36.0); Mean Corpuscular Volume 89.2 fL (80.0-100.0); Monocytes # (auto) 0.4 uL; Monocytes % (auto) 6.7 % (0.0-12.0); Neutrophils # (auto) 4.8 uL; Neutrophils % (auto) 77.6 % (37.0-80.0); Platelet Count (auto) 257 10^3/uL (140-450); Red Blood Cells 4.15 10^6/uL (4.5-5.90); Red Cell Distribution Width 12.9 % (11.8-14.3); White Blood Cell 6.2 10^3/uL (4.4-10.8)
[2017-10-31] MEDS ORDERED: ONDANSETRON HCL 4 MG/2 ML VIAL IV ONE (15:00)
[2017-10-31 15:12] LABS: Alanine Aminotransferase 21 U/L (16-61); Albumin 3.8 g/dL (3.4-5.0); Alkaline Phosphatase 97 U/L (45-117); Anion Gap 11 (5-15); Aspartate Aminotransferase 11 U/L (15-37); BUN/Creatinine Ratio 14.9; Bilirubin, Total 0.6 mg/dL (0.2-1.0); Blood Urea Nitrogen 33 mg/dL (7-18); Carbon Dioxide 24 mmol/L (21-32); Chloride 100 mmol/L (98-107); GFR African American 42 mL/min; GFR Non-African American 34 mL/min; Glucose 355 mg/dL (74-106); Potassium 4.2 mmol/L (3.5-5.1); Sodium 135 mmol/L (136-145); Total Protein 7.5 g/dL (6.4-8.2)
[2017-10-31] MEDS ORDERED: MORPHINE SULFATE 4 MG/ML SYR/VIAL ONE (15:41)
[2017-10-31 15:44] LABS: INR 0.89 (0.9-1.15); Partial Thromboplastin Time 20.9 sec (23.78-33.04); Prothrombin Time 9.6 sec (9.27-12.13)
[2017-10-31] MEDS ORDERED: MORPHINE SULFATE 4 MG/ML SYR/VIAL IV ONE (15:45)
[2017-10-31] MEDS ORDERED: ALPRAZolam 0.5 MG TAB PO PRN (16:00)
[2017-10-31] MEDS ORDERED: PANTOPRAZOLE 40 MG/10 ML VIAL IV ONE (16:15)
[2017-10-31] MEDS ORDERED: FAMOTIDINE (10MG/ML) 2ML VL IV ONE (16:15)
[2017-10-31] MEDS ORDERED: NITROGLYCERIN 0.4 MG SL TAB SL PRN (16:30)
[2017-10-31] MEDS ORDERED: cefTRIAXone 1GM/10ml IVPUSH 10 ML IV ONE (16:30)
[2017-10-31] MEDS ORDERED: MORPHINE SULF INJ 2 MG/ML SYRINGE 1ML IV PRN (16:30)
[2017-10-31] MEDS ORDERED: HYDROcodone-ACET 5/325MG TAB PO PRN (16:30)
[2017-10-31] MEDS ORDERED: ACETAMINOPHEN 325 MG TAB PO PRN (16:30)
[2017-10-31] MEDS ORDERED: DEXTROSE (50%) 50ML SYRG IV PRN (16:30)
[2017-10-31] MEDS ORDERED: TEMAZEPAM 15 MG CAP PO PRN (16:30)
[2017-10-31] MEDS ORDERED: METOCLOPRAMIDE HCL 10 MG TAB PO SCH (17:00)
[2017-10-31] MEDS: ONDANSETRON HCL 4 MG/2 ML VIAL IV PRN (19:34)
[2017-10-31] MEDS: MORPHINE SULF INJ 2 MG/ML SYRINGE 1ML IV PRN (19:34)
[2017-10-31] MEDS: SODIUM CHLORIDE 0.9% 1,000 ML IV SCH (19:44)
[2017-10-31] MEDS: metroNIDAZOLE 500MG/100ML 100 ML IV SCH (19:44)
[2017-10-31] MEDS: ACCU-CHEK COMFORT CURVE STRIP VI SCH ×2 (19:44→22:25)
[2017-10-31] MEDS: METOCLOPRAMIDE HCL 10 MG TAB PO SCH ×2 (19:55→22:23)
[2017-10-31] MEDS: InsuLIN REG 1unit/0.01ml Soln (100units/ml) SC SCH ×2 (19:55→22:28)
[2017-10-31 20:53] LABS: Urine Bacteria FEW /hpf (None Seen); Urine Blood 2+ /uL (Negative); Urine Hyaline Cast FEW /lpf (0 - 2); Urine Specific Gravity 1.016 (1.001-1.035); Urine WBC 1 /hpf (0 - 3)
[2017-10-31 21:04] LABS: Alcohol, Urine < 3.0 mg/dL (0-5); Amphetamine Screen, Urine NEGATIVE (NEGATIVE); Barbiturate Scree,Urine NEGATIVE (NEGATIVE); Benzodiazephine Screen, Urine NEGATIVE (NEGATIVE); Cannabinoid Screen, Urine POSITIVE (NEGATIVE); Cocaine Screen, Urine NEGATIVE (NEGATIVE); Opiate Scree,Urine NEGATIVE (NEGATIVE); Phencyclidine Screen, Urine NEGATIVE (NEGATIVE)
[2017-10-31] MEDS: ATORVASTATIN 20 MG TAB PO SCH (22:23)
[2017-10-31] MEDS: METOPROLOL TARTRATE 25 MG TAB PO SCH (22:23)
[2017-10-31] MEDS: hydrALAZINE HCL 25 MG TAB PO SCH (22:23)
[2017-10-31 23:23] VITALS: BP 176/99
[2017-11-01] MEDS: metroNIDAZOLE 500MG/100ML 100 ML IV SCH ×3 (00:24→16:22)
[2017-11-01] MEDS: SODIUM CHLORIDE 0.9% 1,000 ML IV SCH ×3 (00:24→17:17)
[2017-11-01] MEDS: hydrALAZINE HCL 10 MG TAB PO PRN ×2 (01:17→07:31)
[2017-11-01] MEDS: MORPHINE SULF INJ 2 MG/ML SYRINGE 1ML IV PRN ×5 (01:19→21:42)
[2017-11-01] MEDS: ONDANSETRON HCL 4 MG/2 ML VIAL IV PRN ×5 (01:19→21:42)
[2017-11-01 06:01] LABS: Basophils # (auto) 0.1 uL; Eosinophils # (auto) 0 uL; Hemoglobin 11.9 g/dL (13.5-17.5); Lymphocytes # (auto) 0.9 uL; Lymphocytes % (auto) 11.7 % (10.0-50.0); Mean Corpuscular Hemoglobin 31.6 pg (28.0-32.0); Mean Corpuscular Hgb Conc. 35.1 g/dL (32.0-36.0); Mean Corpuscular Volume 90.1 fL (80.0-100.0); Monocytes # (auto) 0.7 uL; Monocytes % (auto) 8.6 % (0.0-12.0); Neutrophils # (auto) 6.2 uL; Neutrophils % (auto) 78.7 % (37.0-80.0); Platelet Count (auto) 235 10^3/uL (140-450); Red Blood Cells 3.77 10^6/uL (4.5-5.90); Red Cell Distribution Width 13.2 % (11.8-14.3); White Blood Cell 7.9 10^3/uL (4.4-10.8)
[2017-11-01 06:02] VITALS: BP 153/82
[2017-11-01 06:21] LABS: Albumin 3.3 g/dL (3.4-5.0); BUN/Creatinine Ratio 16.1; Calcium 8.7 mg/dL (8.5-10.1); Potassium 4.5 mmol/L (3.5-5.1)
[2017-11-01 06:23] LABS: Bilirubin, Total 0.5 mg/dL (0.2-1.0); Total Protein 6.9 g/dL (6.4-8.2)
[2017-11-01] MEDS: METOCLOPRAMIDE HCL 10 MG TAB PO SCH ×4 (06:27→21:41)
[2017-11-01] MEDS: ACCU-CHEK COMFORT CURVE STRIP VI SCH ×4 (06:28→21:41)
[2017-11-01] MEDS: InsuLIN REG 1unit/0.01ml Soln (100units/ml) SC SCH ×4 (06:28→21:41)
[2017-11-01] MEDS: INSULIN LANTUS (GLARGINE) 1 /0.01ml (100units/ml) SC SCH (06:28)
[2017-11-01 08:00] VITALS: BP 158/83
[2017-11-01 08:19] VITALS: BP 158/85
[2017-11-01] MEDS: cefTRIAXone 1GM/10ml IVPUSH 10 ML IV SCH (09:31)
[2017-11-01] MEDS: MULTIPLE VITAMIN TAB PO SCH (09:51)
[2017-11-01] MEDS: ISOSORBIDE MONONITRATE 60 MG TAB PO SCH (09:51)
[2017-11-01] MEDS: hydrALAZINE HCL 25 MG TAB PO SCH ×2 (09:52→21:40)
[2017-11-01] MEDS: amLODIPine BESYLATE 5 MG TAB PO SCH (09:53)
[2017-11-01] MEDS: METOPROLOL TARTRATE 25 MG TAB PO SCH ×2 (09:53→21:40)
[2017-11-01] MEDS: DULoxetine HCL 30 MG CAP PO SCH (09:54)
[2017-11-01] MEDS ORDERED: PANTOPRAZOLE 40 MG/10 ML VIAL IV SCH (10:00)
[2017-11-01] MEDS ORDERED: FAMOTIDINE (10MG/ML) 2ML VL IV SCH ×2 (10:00→12:00)
[2017-11-01] MEDS ORDERED: PANTOPRAZOLE 40 MG TAB PO ONE (10:30)
[2017-11-01 13:33] VITALS: BP 140/76
[2017-11-01 16:27] VITALS: BP 134/74
[2017-11-01 17:59] LABS: Hematocrit 33.4 % (41.0-53.0); Hemoglobin 11.4 g/dL (13.5-17.5)
[2017-11-01] MEDS: ATORVASTATIN 20 MG TAB PO SCH (21:40)
[2017-11-01] MEDS: PANTOPRAZOLE 40 MG TAB PO SCH (21:41)
[2017-11-02] MEDS: metroNIDAZOLE 500MG/100ML 100 ML IV SCH ×3 (00:06→16:32)
[2017-11-02] MEDS: SODIUM CHLORIDE 0.9% 1,000 ML IV SCH ×3 (00:10→18:17)
[2017-11-02 05:00] VITALS: BP 156/86
[2017-11-02] MEDS: hydrALAZINE HCL 10 MG TAB PO PRN (05:20)
[2017-11-02 05:58] LABS: Basophils # (auto) 0.1 uL; Eosinophils # (auto) 0.1 uL; Eosinophils % (auto) 0.7 % (0.0-7.0); Hematocrit 33.3 % (41.0-53.0); Hemoglobin 11.9 g/dL (13.5-17.5); Lymphocytes # (auto) 0.9 uL; Lymphocytes % (auto) 11.2 % (10.0-50.0); Mean Corpuscular Hemoglobin 31.4 pg (28.0-32.0); Mean Corpuscular Hgb Conc. 35.6 g/dL (32.0-36.0); Mean Corpuscular Volume 88.1 fL (80.0-100.0); Monocytes # (auto) 0.6 uL; Monocytes % (auto) 7.3 % (0.0-12.0); Neutrophils # (auto) 6.4 uL; Neutrophils % (auto) 79.8 % (37.0-80.0); Nucleated Red Blood Cells % 0.1 %; Platelet Count (auto) 233 10^3/uL (140-450); Red Blood Cells 3.78 10^6/uL (4.5-5.90); Red Cell Distribution Width 13.3 % (11.8-14.3)
[2017-11-02 06:15] LABS: BUN/Creatinine Ratio 12.1; Calcium 8.2 mg/dL (8.5-10.1); Potassium 3.8 mmol/L (3.5-5.1)
[2017-11-02] MEDS: ONDANSETRON HCL 4 MG/2 ML VIAL IV PRN ×2 (06:25→15:09)
[2017-11-02] MEDS: INSULIN LANTUS (GLARGINE) 1 /0.01ml (100units/ml) SC SCH (06:30)
[2017-11-02] MEDS: ACCU-CHEK COMFORT CURVE STRIP VI SCH ×3 (06:30→17:00)
[2017-11-02] MEDS: METOCLOPRAMIDE HCL 10 MG TAB PO SCH ×3 (06:30→17:00)
[2017-11-02] MEDS: InsuLIN REG 1unit/0.01ml Soln (100units/ml) SC SCH ×3 (06:30→17:00)
[2017-11-02] MEDS ORDERED: SODIUM CHLORIDE LOCK 10 ML ONE (08:16)
[2017-11-02] MEDS ORDERED: LIDOCAINE VISCOUS 2% 15ML UD ONE (08:16)
[2017-11-02 09:00] VITALS: BP 167/87
[2017-11-02] MEDS: fentaNYL CITRATE 100 MCG/2 ML VL ONE ×2 (09:58→10:01)
[2017-11-02] MEDS: MIDAZOLAM HCL 5 MG/ML-1ML VIAL ONE ×2 (09:58→11:04)
[2017-11-02] MEDS ORDERED: PANTOPRAZOLE 40 MG TAB PO SCH (10:00)
[2017-11-02] MEDS: cefTRIAXone 1GM/10ml IVPUSH 10 ML IV SCH (11:02)
[2017-11-02] MEDS: DULoxetine HCL 30 MG CAP PO SCH (11:04)
[2017-11-02] MEDS: hydrALAZINE HCL 25 MG TAB PO SCH (11:04)
[2017-11-02] MEDS: PANTOPRAZOLE 40 MG TAB PO SCH (11:05)
[2017-11-02] MEDS: MULTIPLE VITAMIN TAB PO SCH (11:05)
[2017-11-02] MEDS: ISOSORBIDE MONONITRATE 60 MG TAB PO SCH (11:06)
[2017-11-02] MEDS: METOPROLOL TARTRATE 25 MG TAB PO SCH (11:06)
[2017-11-02] MEDS: amLODIPine BESYLATE 5 MG TAB PO SCH (11:07)
[2017-11-02 13:00] VITALS: BP 137/87
[2017-11-02] MEDS: MORPHINE SULF INJ 2 MG/ML SYRINGE 1ML IV PRN (15:09)
[2017-11-02 16:46] VITALS: BP 137/87
[2017-11-02 17:16] VITALS: BP 149/94
== END 2017-11-02 18:20 | disposition home or self-care (01) | DRG 720 ==
LOC: ER 13:52 → TELE 13:53 → TELE-WESTW 23:27
PROVIDERS: ADMIT Internal Medicine; ATTEND Internal Medicine
PROC: 0DB68ZX Excision of Stomach, Via Natural or Artificial Opening Endoscopic, Diagnostic (ICD-10-PCS; principal; 2017-11-02 09:56)
DX: A41.9 Sepsis, unspecified organism (principal); E11.21 Type 2 diabetes mellitus with diabetic nephropathy; K31.84 Gastroparesis; K29.01 Acute gastritis with bleeding; K92.0 Hematemesis; N18.3 Chronic kidney disease, stage 3 (moderate); I13.0 Hypertensive heart and chronic kidney disease with heart failure and stage 1 through stage 4 chronic kidney disease, or unspecified chronic kidney disease; I50.42 Chronic combined systolic (congestive) and diastolic (congestive) heart failure; E11.43 Type 2 diabetes mellitus with diabetic autonomic (poly)neuropathy; E87.1 Hypo-osmolality and hyponatremia; N39.0 Urinary tract infection, site not specified; E11.22 Type 2 diabetes mellitus with diabetic chronic kidney disease; D63.8 Anemia in other chronic diseases classified elsewhere; I25.10 Atherosclerotic heart disease of native coronary artery without angina pectoris; F17.210 Nicotine dependence, cigarettes, uncomplicated; I25.2 Old myocardial infarction; Z79.4 Long term (current) use of insulin; Z82.49 Family history of ischemic heart disease and other diseases of the circulatory system; Z87.11 Personal history of peptic ulcer disease; Z83.3 Family history of diabetes mellitus; Z90.49 Acquired absence of other specified parts of digestive tract; Z98.61 Coronary angioplasty status
CPT/HCPCS: 36415; 43239; 71046; 74176; 80048; 80053; 80307; 81001; 82962; 83036; 83605; 83880; 84443; 84484; 85014; 85018; 85025; 85610; 85730; 86850; 86900; 86901; 87040; 87081; 87086; 93005; 96361; 96374; 96375; J0696; J1815; J2250; J2405; J3490

== ENCOUNTER 2022-04-17 13:41 | Inpatient (IN) | payer OTHER, MEDICAID ==
[~2022-04-17] VITALS: Ht 177.8 cm; Wt 79.5 kg
[~2022-04-17 13:41] MED LIST changes: -AMLO5TAB2 PO; -CLOP75TA41 PO; +CLOP75TA70 PO; +ONDA-144 PO; -ONDA4TAB5 PO
[2022-04-17] MEDS ORDERED: ACETAMINOPHEN 500 MG TAB PO ONE (18:15)
[2022-04-17] MEDS ORDERED: amLODIPine BESYLATE 5 MG TAB PO ONE (18:30)
[2022-04-17] MEDS ORDERED: LABETALOL HCL 200 MG TAB PO ONE (18:30)
[2022-04-17 18:44] LABS: Basophils # (auto) 0.1 10 ^3/uL (0-0.2); Basophils % (auto) 1.1 % (0.0-2.0); Eosinophils # (auto) 0.1 10 ^3/uL (0-0.8); Eosinophils % (auto) 1.5 % (0.0-7.0); Hematocrit 35.9 % (41.0-53.0); Lymphocytes % (auto) 10.5 % (10.0-50.0); Mean Corpuscular Hemoglobin 30.1 pg (28.0-32.0); Mean Corpuscular Hgb Conc. 33.6 g/dL (32.0-36.0); Mean Corpuscular Volume 89.7 fL (80.0-100.0); Monocytes # (auto) 0.6 10 ^3/uL (0-1.3); Monocytes % (auto) 6.4 % (0.0-12.0); Neutrophils # (auto) 7.3 10 ^3/uL (1.6-8.6); Neutrophils % (auto) 80.5 % (37.0-80.0); Nucleated Red Blood Cells % 0.1 %; White Blood Cell 9.1 10^3/uL (4.4-10.8)
[2022-04-17 18:58] LABS: INR 0.9 (0.9-1.15); Partial Thromboplastin Time 23.1 sec (24.6-33.4)
[2022-04-17 19:26] LABS: Albumin 3.1 g/dL (3.4-5.0); Calcium 8.6 mg/dL (8.5-10.1); Magnesium 2.8 mg/dL (1.6-2.6); Potassium 4.2 mmol/L (3.5-5.1)
[2022-04-17 19:31] LABS: BUN/Creatinine Ratio 15.9; Bilirubin, Total 0.4 mg/dL (0.2-1.0)
[2022-04-17] MEDS ORDERED: ONDANSETRON HCL 4 MG/2 ML VIAL IV ONE (20:00)
[2022-04-17] MEDS ORDERED: MORPHINE SULFATE 4 MG/ML SYR/VIAL IV ONE (20:00)
[2022-04-17] MEDS ORDERED: levETIRAcetam 500 MG/5ML INJ IV ONE (23:07)
[2022-04-18] MEDS ORDERED: ONDANSETRON HCL 4 MG/2 ML VIAL IV PRN (03:15)
[2022-04-18] MEDS ORDERED: DEXTROSE (50%) 50ML SYRG IV PRN (03:15)
[2022-04-18] MEDS ORDERED: DOCUSATE SOD 100 MG CAP PO PRN (03:15)
[2022-04-18] MEDS ORDERED: hydrALAZINE HCL 20 MG/ML VL IV PRN (03:15)
[2022-04-18] MEDS ORDERED: ACETAMINOPHEN 325 MG TAB PO PRN (03:15)
[2022-04-18] MEDS: SOD CHL 0.45% 1,000 ML IV SCH ×2 (04:00→17:06)
[2022-04-18] MEDS: InsuLIN REG 1unit/0.01ml Soln (100units/ml) SC SCH ×5 (04:00→21:20)
[2022-04-18] MEDS: ACCU-CHEK COMFORT CURVE STRIP VI SCH ×5 (04:11→21:20)
[2022-04-18] MEDS: HYDROcodone-ACET 5/325MG TAB PO PRN ×2 (04:16→09:26)
[2022-04-18] MEDS ORDERED: MORPHINE SULFATE INJ 2 MG/ml SYRG IV PRN (04:45)
[2022-04-18] MEDS ORDERED: NITROGLYCERIN 0.4 MG SL TAB SL PRN (04:45)
[2022-04-18 05:41] LABS: Urine Blood Trace /uL (Negative); Urine Specific Gravity 1.015 (1.001-1.035)
[2022-04-18 06:41] LABS: Albumin 2.7 g/dL (3.4-5.0); Calcium 8.4 mg/dL (8.5-10.1); Magnesium 2.4 mg/dL (1.6-2.6); Potassium 4.1 mmol/L (3.5-5.1)
[2022-04-18 06:45] LABS: Bilirubin, Total 0.4 mg/dL (0.2-1.0)
[2022-04-18 07:48] LABS: Basophils # (auto) 0.1 10 ^3/uL (0-0.2); Eosinophils # (auto) 0.1 10 ^3/uL (0-0.8); Eosinophils % (auto) 1.7 % (0.0-7.0); Hematocrit 34.3 % (41.0-53.0); Hemoglobin 11.4 g/dL (13.5-17.5); Lymphocytes % (auto) 12.2 % (10.0-50.0); Mean Corpuscular Hemoglobin 29.9 pg (28.0-32.0); Mean Corpuscular Hgb Conc. 33.2 g/dL (32.0-36.0); Mean Corpuscular Volume 89.8 fL (80.0-100.0); Monocytes # (auto) 0.9 10 ^3/uL (0-1.3); Monocytes % (auto) 11.1 % (0.0-12.0); Nucleated Red Blood Cells % 0.1 %; Red Blood Cells 3.82 10^6/uL (4.5-5.90); Red Cell Distribution Width 13.8 % (11.8-14.3); White Blood Cell 8.1 10^3/uL (4.4-10.8)
[2022-04-18] MEDS: METOPROLOL TARTRATE 25 MG TAB PO SCH ×2 (09:27→21:19)
[2022-04-18] MEDS ORDERED: FAMOTIDINE (10MG/ML) 2ML VL IV SCH (10:00)
[2022-04-18] MEDS ORDERED: amLODIPine BESYLATE 5 MG TAB PO SCH (10:00)
[2022-04-18] MEDS ORDERED: ASPirin 81 mg TAB PO SCH (10:00)
[2022-04-18] MEDS ORDERED: LORazepam 2MG/ML-1ML VIAL IV PRN ×2 (10:00)
[2022-04-18] MEDS: MORPHINE SULFATE INJ 2 MG/ml SYRG IV PRN ×2 (12:01→19:01)
[2022-04-18 12:43] LABS: Phosphorus 4.6 mg/dL (2.5-4.90)
[2022-04-18 13:29] LABS: Alcohol, Urine < 3.0 mg/dL (0-10)
[2022-04-18 13:45] LABS: Amphetamine Screen, Urine NEGATIVE (NEGATIVE); Barbiturate Scree,Urine NEGATIVE (NEGATIVE); Benzodiazephine Screen, Urine NEGATIVE (NEGATIVE); Cannabinoid Screen, Urine POSITIVE (NEGATIVE); Cocaine Screen, Urine NEGATIVE (NEGATIVE); Opiate Scree,Urine NEGATIVE (NEGATIVE); Phencyclidine Screen, Urine NEGATIVE (NEGATIVE)
[2022-04-18 13:47] LABS: Protein, Urine 385.3 mg/dL (0.0-11.9)
[2022-04-18] MEDS ORDERED: levETIRAcetam 500 MG/5ML INJ IV ONE (21:15)
[2022-04-18] MEDS ORDERED: ALPRAZolam 0.25 MG TAB PO ONE (21:15)
[2022-04-19] MEDS: ACCU-CHEK COMFORT CURVE STRIP VI SCH ×2 (00:15→03:50)
[2022-04-19] MEDS: MORPHINE SULFATE INJ 2 MG/ml SYRG IV PRN (01:24)
[2022-04-19] MEDS: InsuLIN REG 1unit/0.01ml Soln (100units/ml) SC SCH ×2 (03:50)
[2022-04-19 04:00] VITALS: BP 155/86
[2022-04-19] MEDS ORDERED: TEMAZEPAM 15 MG CAP PO ONE (04:15)
[2022-04-19 06:46] LABS: Potassium 4.5 mmol/L (3.5-5.1)
[2022-04-19 06:51] LABS: Albumin 2.5 g/dL (3.4-5.0); BUN/Creatinine Ratio 13.5; Calcium 8.4 mg/dL (8.5-10.1)
[2022-04-19 06:54] LABS: Bilirubin, Total 0.4 mg/dL (0.2-1.0); Total Protein 6.3 g/dL (6.4-8.2)
[2022-04-19 06:55] LABS: Basophils # (auto) 0.1 10 ^3/uL (0-0.2); Basophils % (auto) 1.2 % (0.0-2.0); Eosinophils # (auto) 0.2 10 ^3/uL (0-0.8); Hematocrit 35.2 % (41.0-53.0); Hemoglobin 11.9 g/dL (13.5-17.5); Lymphocytes # (auto) 0.9 10 ^3/uL (0.4-5.4); Mean Corpuscular Hemoglobin 30.3 pg (28.0-32.0); Mean Corpuscular Hgb Conc. 33.8 g/dL (32.0-36.0); Mean Corpuscular Volume 89.8 fL (80.0-100.0); Monocytes # (auto) 0.6 10 ^3/uL (0-1.3); Monocytes % (auto) 7.9 % (0.0-12.0); Neutrophils # (auto) 6.3 10 ^3/uL (1.6-8.6); Neutrophils % (auto) 77.9 % (37.0-80.0); Nucleated Red Blood Cells % 0.1 %; Red Blood Cells 3.92 10^6/uL (4.5-5.90); Red Cell Distribution Width 13.8 % (11.8-14.3); White Blood Cell 8.1 10^3/uL (4.4-10.8)
== END 2022-04-19 05:45 | disposition left against medical advice (07) | DRG 100 ==
LOC: ER 13:41 → EDBD 13:41 → TELE 04-18 04:39
PROVIDERS: ADMIT Nurse Practitioner Family; ATTEND Nurse Practitioner Acute Care
DX: G40.409 Other generalized epilepsy and epileptic syndromes, not intractable, without status epilepticus (principal); N17.0 Acute kidney failure with tubular necrosis; I13.0 Hypertensive heart and chronic kidney disease with heart failure and stage 1 through stage 4 chronic kidney disease, or unspecified chronic kidney disease; I16.0 Hypertensive urgency; E11.22 Type 2 diabetes mellitus with diabetic chronic kidney disease; E11.65 Type 2 diabetes mellitus with hyperglycemia; E86.0 Dehydration; E83.41 Hypermagnesemia; D63.1 Anemia in chronic kidney disease; K31.84 Gastroparesis; E78.5 Hyperlipidemia, unspecified; Z53.29 Procedure and treatment not carried out because of patient's decision for other reasons; Z20.822 Contact with and (suspected) exposure to COVID-19; F17.210 Nicotine dependence, cigarettes, uncomplicated; I25.10 Atherosclerotic heart disease of native coronary artery without angina pectoris; I48.91 Unspecified atrial fibrillation; I50.9 Heart failure, unspecified; N18.31 Chronic kidney disease, stage 3a; Z79.899 Other long term (current) drug therapy; Z82.3 Family history of stroke; Z82.49 Family history of ischemic heart disease and other diseases of the circulatory system; Z83.3 Family history of diabetes mellitus; Z87.11 Personal history of peptic ulcer disease; Z87.442 Personal history of urinary calculi; Z90.49 Acquired absence of other specified parts of digestive tract
CPT/HCPCS: 36415; 70450; 70551; 71045; 73030; 73200; 76775; 80053; 80307; 81003; 82306; 82550; 82570; 82962; 83036; 83735; 83880; 83970; 84100; 84156; 84300; 84484; 85025; 85610; 85730; 87426; 93005; 93306; 95819; 96365; 96375; G0378; J1815; J2405; J3490; J7060

== ENCOUNTER 2024-11-02 10:56 | Emergency (ER) | payer OTHER, MEDICAID ==
[~2024-11-02 10:56] MED LIST changes: -ATO40T PO; +ATOR-507 PO; -CLOP75TA70 PO; -DULO60CA PO; -HYDR50TA15 PO; +HYDR50TA47 PO; -ISOS60TA24 PO; -METO10TA3 PO; -ONDA-144 PO
--- NOTE | 2024-11-02 11:03 | ED.PDOC ---
HPI Comments 53 y.o male with PMHx of HTN, DM, CKF, CHF, CAD, and ESRD with dialysis on M,W,F, presents to the ED via EMS for a chief complaint of substernal chest pain that started 1 day ago. Patient presents groaning due to constant pain that is non radiating. EMS reports per patient's girlfriend on scene, patient has intermittent chest pain episodes throughout the years in which he starts to groan due to pain. No alleviating factors noted and patient is requesting pain medication upon ED arrival. Patient is on Plavix. Last dialysis session was yesterday in which patient mentions completing full session. Patient additionally mentions that he smokes marijuana but denies any other substance, alcohol or tobacco use. EMS reports on scene patient's BG read in the 500's. Chief Complaint: Chest Pain Time Seen by MD: 10:49 Primary Care Provider: FESTUS Reviewed Notes: Nurses Notes, Formwork Carpenter Notes, Medications, Allergies Allergies: Coded Allergies: NO KNOWN ALLERGIES (Unverified , 04/17/22) Home Meds Active Scripts Hydralazine Hcl (Hydralazine Hcl) 50 Mg Tab, 1 TAB PO BID, #60 TAB 3 Refills Prov:DEISY CHRISTIANSEN MD 09/14/17 Metoprolol Tartrate (Lopressor) 25 Mg Tb, 25 MG PO BID, #60 Prov:DEISY CHRISTIANSEN MD 09/14/17 Aspirin (Asa) 81 Mg Ch, 81 MG PO DAILY, #30 Prov:DEISY CHRISTIANSEN MD 12/15/16 Pantoprazole Sodium Sesquihydr (Pantoprazole Sodium) 40 Mg Tab, 40 MG PO BID, #60 TAB Prov:MOOSE SCHAEFFER MD 11/20/16 Atorvastatin Calcium (Lipitor) 40 Mg Tab, 1 TAB PO DAILY, #30 TAB 1 Refill Prov:QUENTIN CHEN MD 07/28/16 Reported Medications Insulin Glargine (Lantus) 100 Unit/Ml Inj, 30 UNIT SC QAM, INJ 05/28/17 Information Source: Patient, Emergency Med Personnel Mode of Arrival: EMS Severity: Moderate Timing: Days (1) Duration: Since onset Location: Substernal Radiation: No Radiation Quality: Sharp Onset: At Rest Cardiac Risk Factors: HTN, Diabetes PE Risk Factors: None History of: Similar pain in past Modifying Factors: Nothing Associated Signs and Symptoms: None Past Medical History PAST MEDICAL HISTORY: CAD, CHF, CKF, DM, ESRD, HTN, PUD Surgical History: Cholecystectomy, PTCA Family History Family History: No family hx of DM, No family hx of HTN Social History Smoker: Cigarettes, Less Than 1 Pack/Day Alcohol: Denies ETOH Use Drugs: Marijuana Lives In: Home Constitutional: denies: chills, diaphoresis, fatigue, fever, malaise, sweats, weakness, others EENTM: denies: blurred vision, double vision, ear bleeding, ear discharge, ear drainage, ear pain, ear ringing, eye pain, eye redness, hearing loss, mouth pain, mouth swelling, nasal discharge, nose bleeding, nose congestion, nose pain, photophobia, tearing, throat pain, throat swelling, voice changes, others Respiratory: denies: cough, hemoptysis, orthopnea, SOB at rest, shortness of breath, SOB with excertion, stridor, wheezing, others Cardiovascular: reports: chest pain; denies: dizzy spells, diaphoresis, Dyspnea on exertion, edema, irregular heart beat, left arm pain, lightheadedness, palpitations, PND, syncope, others Gastrointestinal: denies: abdomen distended, abdominal pain, blood streaked bowels, constipated, diarrhea, dysphagia, difficulty swallowing, hematemesis, melena, nausea, poor appetite, poor fluid intake, rectal bleeding, rectal pain, vomiting, others Genitourinary: denies: burning, dysuria, flank pain, frequency, hematuria, incontinence, penile discharge, penile sore, pain, testicle pain, testicle swelling, urgency, others Neurological: denies: dizziness, fainting, headache, left sided numbness, left sided weakness, numbness, paresthesia, pre-existing deficit, right sided numbness, right sided weakness, seizure, speech problems, tingling, tremors, weakness, others Musculoskeletal: denies: back pain, gout, joint pain, joint swelling, muscle pain, muscle stiffness, neck pain, others Integumetry: denies: bruises, change in color, change in hair/nails, dryness, laceration, lesions, lumps, rash, wounds, others Allergic/Immunocompromised: denies: Difficulty Healing, Frequent Infections, Hives, Itching, others Hematologic/Lymphatic: denies: anemia, blood clots, easy bleeding, easy bruising, swollen glands, others Endocrine: denies: excessive hunger, excessive sweating, excessive thirst, excessive urination, flushing, intolerance to cold, intolerance to heat, unexplained weight gain, unexplained weight loss, others Psychiatric: denies: anxiety, bipolar disorder, depression, hopeless, panic disorder, schizophrenia, sleepless, suicidal, others All Other Systems: Reviewed and Negative Physical Exam General Appearance: Moderate Distress HEENT: Normal ENT Inspection, Pharynx Normal, TMs Normal Neck: Full Range of Motion, Non-Tender, Normal, Normal Inspection Respiratory: Chest Non-Tender, Lungs Clear, No Accessory Muscle Use, No Respiratory Distress, Normal Breath Sounds Cardiovascular: No Edema, No JVD, No Murmur, No Gallop, Normal Peripheral Pulses, Regular Rate/Rhythm Breast Exam: Deferred Gastrointestinal: No Organomegaly, Non Tender, No Pulsatile Mass, Normal Bowel Sounds, Soft Genitalia: Deferred Pelvic: Deferred Rectal: Deferred Extremities: No calf tenderness, Normal capillary refill, Normal inspection, Normal range of motion, Non-tender, No pedal edema Musculoskeletal : Apperance: Normal Neurologic: Alert, sizing end bander II-XII nml as Tested, No Motor Deficits, Normal Affect, Normal Mood, No Sensory Deficits Cerebellar Function: NOT DONE Reflexes: NOT DONE Skin: Dry, Normal Color, Warm Peripheral Pulses: 3+ Radial (R), 3+ Radial (L) Lymphatic: No Adenopathy EKG EKG : Pulse Rate (adult): 74 Cardiac Rhythm: NSR Was a procedure done? Was a procedure done?: No CP Differential Dx Differential Diagnosis: A-fib, A-Flutter, Angina, Anxiety / Panic Attack, Atrial Dysrhythmia, Electrolyte Disorder, N/A Differential Diagnosis: Angina, Chest Wall Pain, Esophageal reflux/spasm, Pericarditis X-Ray, Labs, Meds, VS Vital Signs Date Time Temp Pulse Resp B/P (MAP) Pulse Ox O2 Delivery O2 Flow Rate FiO2 11/02/24 15:06 128/70 11/02/24 15:00 68 18 127/68 (87) 98 11/02/24 13:16 69 15 100 Nasal Cannula* 2 28 11/02/24 13:16 98.0 69 15 137/74 (95) 100 98.0 11/02/24 12:49 101 19 97 Room Air* 0 21 11/02/24 12:47 101 19 123/74 11/02/24 12:03 75 11/02/24 11:55 98.9 74 18 123/71 (88) 99 98.9 11/02/24 11:03 74 11/02/24 10:58 90 110/52 11/02/24 10:56 74 Lab Test 11/02/24 14:46 11/02/24 12:55 11/02/24 12:49 11/02/24 11:16 Range/Units POC Glucose 325 H 314 H 70-106 mg/dl Troponin I High Sensitivity 22 23 21 </=54 ng/L White Blood Count 8.7 4.4-10.8 10^3/uL Red Blood Count 2.72 L 4.5-5.90 10^6/uL Hemoglobin 8.1 L 13.5-17.5 g/dL Hematocrit 25.1 L 41.0-53.0 % Mean Corpuscular Volume 92.2 80.0-100.0 fL Mean Corpuscular Hemoglobin 29.8 28.0-32.0 pg Mean Corpuscular Hemoglobin Concent 32.3 32.0-36.0 g/dL Red Cell Distribution Width 19.4 H 11.8-14.3 % Platelet Count 227 140-450 10^3/uL Mean Platelet Volume 7.1 6.9-10.8 fL Neutrophils (%) (Auto) 82.4 H 37.0-80.0 % Lymphocytes (%) (Auto) 5.6 L 10.0-50.0 % Monocytes (%) (Auto) 7.6 0.0-12.0 % Eosinophils (%) (Auto) 1.9 0.0-7.0 % Basophils (%) (Auto) 2.5 H 0.0-2.0 % Neutrophils # (Auto) 7.2 1.6-8.6 10 ^3/uL Lymphocytes # (Auto) 0.5 0.4-5.4 10 ^3/uL Monocytes # (Auto) 0.7 0-1.3 10 ^3/uL Eosinophils # (Auto) 0.2 0-0.8 10 ^3/uL Basophils # (Auto) 0.2 0-0.2 10 ^3/uL Nucleated Red Blood Cells 0.0 % Sodium Level 138 136-145 mmol/L Potassium Level 4.4 3.5-5.1 mmol/L Chloride Level 100 98-107 mmol/L Carbon Dioxide Level 27 20-31 mmol/L Anion Gap 11 5-15 Blood Urea Nitrogen 39 H 9-23 mg/dL Creatinine 5.82 H 0.700-1.30 mg/dL Glomerular Filtration Rate Calc 11 >90 mL/min BUN/Creatinine Ratio 6.7 L 10.0-20.0 Serum Glucose 424 *H 74-106 mg/dL Calcium Level 8.4 L 8.7-10.4 mg/dL B-Type Natriuretic Peptide 850.26 0-100 pg/mL Current Medications Medications (Trade) Dose Ordered Sig/Ervin Route Start Time Stop Time Status Last Admin Morphine Sulfate 4 mg ONCE ONCE IV 11/02/24 12:45 11/02/24 12:46 DC 11/02/24 12:47 Ondansetron HCl (Zofran) 4 mg ONCE ONCE IV 11/02/24 12:45 11/02/24 12:46 DC 11/02/24 12:47 Furosemide (Lasix Injection) 40 mg ONCE ONCE IV 11/02/24 14:30 11/02/24 14:31 DC 11/02/24 15:06 Insulin Human Regular (InsuLIN R) 5 UNITS ONCE ONCE SC 11/02/24 15:00 11/02/24 15:01 DC 11/02/24 15:08 Patient alert. Complaining of chest pain. Vitals stable. Answering questions. EKG reviewed does not show any acute changes. BNP elevated. Was given Lasix. Blood sugar elevated. Was given insulin. Establish intravenous access. Was given fluids. WBC within normal limits. Cardiac marker within normal limits. Explained to the patient. Continue monitoring. Time of 1ST Reevaluation: 11:00 Reevaluation 1ST: Unchanged Patient Education/Counseling: Diagnosis, Treatment, Prognosis Family Education/Counseling: No Family Present SEPSIS Sepsis Screen Physician Orders Chest Portable (11/02/24 11:12) Electrocardigram (11/02/24 11:16) Electrocardigram (11/02/24 12:16) Discharge (11/02/24 14:33) Vital Signs Date Time Temp Pulse Resp B/P (MAP) Pulse Ox O2 Delivery O2 Flow Rate FiO2 11/02/24 15:06 128/70 11/02/24 15:00 68 18 127/68 (87) 98 11/02/24 13:16 69 15 100 Nasal Cannula* 2 28 11/02/24 13:16 98.0 69 15 137/74 (95) 100 98.0 11/02/24 12:49 101 19 97 Room Air* 0 21 11/02/24 12:47 101 19 123/74 11/02/24 12:03 75 11/02/24 11:55 98.9 74 18 123/71 (88) 99 98.9 11/02/24 11:03 74 11/02/24 10:58 90 110/52 11/02/24 10:56 74 Laboratory Tests Test 11/02/24 11:16 White Blood Count 8.7 10^3/uL (4.4-10.8) Medications Medications Dose Ordered Sig/Ervin Route Start Time Stop Time Status Last Admin Dose Admin Furosemide 40 mg ONCE ONCE IV 11/02/24 14:30 11/02/24 14:31 DC 11/02/24 15:06 Insulin Human Regular 5 UNITS ONCE ONCE SC 11/02/24 15:00 11/02/24 15:01 DC 11/02/24 15:08 Morphine Sulfate 4 mg ONCE ONCE IV 11/02/24 12:45 11/02/24 12:46 DC 11/02/24 12:47 Ondansetron HCl 4 mg ONCE ONCE IV 11/02/24 12:45 11/02/24 12:46 DC 11/02/24 12:47 Departure 1 Departure Time of Disposition: 14:17 Impression: Primary Impression: Chest pain of unknown etiology Additional Impressions: Uncontrolled diabetes mellitus Qualified Codes: E13.65 - Other specified diabetes mellitus with hyperglycemia CHF (congestive heart failure) Qualified Codes: I50.43 - Acute on chronic combined systolic (congestive) and diastolic (congestive) heart failure Disposition: ADMITTED INPATIENT Admit to: Med Surg Condition: Guarded e-Prescriptions Hydrocodone-Acetaminophen (Hydrocodone Bitartrate/AC 5-325 mg) 1 Tab Tab 1 TAB PO DAILY for 5 Days, #5 TAB Prov: KARL CAVANAUGH MD 11/02/24 Critical Care Note Critical Care Time?: Yes (90 min-critical care time only) Stability Stability form required: No Heart Score Heart Score: Heart Score Response (Comments) Value History Slightly Suspicious 0 EKG Normal 0 Age 45-64 1 Risk Factors >3 or Hx ASHD 2 Troponin Normal limit 0 Total 3 I personally scribed for KARL CAVANAUGH MD ([email or web address]) on 11/02/24 at 11:03. Electronically submitted by Meredith Cabrales ([facility]). KARL CAVANAUGH MD Nov 02, 2024 11:03
[2024-11-02 11:27] LABS: Hematocrit 25.1 % (41.0-53.0); Hemoglobin 8.1 g/dL (13.5-17.5); Mean Corpuscular Volume 92.2 fL (80.0-100.0); Nucleated Red Blood Cells % 0.0 %
[2024-11-02 11:28] LABS: Mean Corpuscular Hemoglobin 29.8 pg (28.0-32.0)
[2024-11-02 11:36] LABS: Chloride 100 mmol/L (98-107); Potassium 4.4 mmol/L (3.5-5.1); Sodium 138 mmol/L (136-145)
[2024-11-02 11:37] LABS: Anion Gap 11 (5-15); Carbon Dioxide 27 mmol/L (20-31)
[2024-11-02 11:38] LABS: Calcium 8.4 mg/dL (8.7-10.4)
[2024-11-02 11:42] LABS: BUN/Creatinine Ratio 6.7 (10.0-20.0)
--- NOTE | 2024-11-02 11:43 | DVH ---
CLINICAL HISTORY: sob TECHNIQUE: Single view of the chest was obtained. COMPARISON: CHEST PORTABLE on DOS: 04/17/22, CXRP on DOS: 04/17/22 FINDINGS: The heart size is normal with pulmonary vascular congestion. The left lung is nearly completely opaci fied. A right dialysis catheter terminates at the cavoatrial junction. IMPRESSION: Nearly completely opacified right hemithorax with differential including mucus plug and/or large pleu ral effusion/atelectasis. Pulmonary vascular congestion.
[2024-11-02 11:49] LABS: Blood Urea Nitrogen 39 mg/dL (9-23)
[2024-11-02 11:50] LABS: Glucose 424 mg/dL (74-106)
[2024-11-02] MEDS: ONDANSETRON HCL 4 MG/2 ML VIAL IV ONE (12:47)
[2024-11-02] MEDS: MORPHINE SULFATE 4 MG/ML SYR/VIAL IV ONE (12:47)
[2024-11-02 12:49] VITALS: PULSE 101; RESP 19; O2SAT 97
[2024-11-02 13:16] VITALS: PULSE 69; RESP 15; TEMP 98; O2SAT 100
[2024-11-02] MEDS ORDERED: InsuLIN REG 1unit/0.01ml Soln (100units/ml) IV ONE (14:30)
[2024-11-02 15:00] VITALS: BP 127/68; PULSE 68; RESP 18; O2SAT 98
[2024-11-02] MEDS: FUROSEMIDE 40 MG/4 ML VIAL IV ONE (15:06)
[2024-11-02] MEDS: InsuLIN REG 1unit/0.01ml Soln (100units/ml) SC ONE (15:08)
[2024-11-02] MEDS ORDERED: HYDR-4902 PO (15:37)
--- NOTE | 2024-11-02 18:59 | ECG ---
[facility] Test Date: 2024-11-02 Test Time: 12:00:20 Pat Name: HAN MEDRANO Department: Room: Gender: M Branch Chief: BRITTANY : 1970 Requested By: KARL CAVANAUGH Order Number: [id number] Reading MD: Melquiades Hogan Measurements Intervals [place] Rate: 75 P: 66 [place]: 164 QRS: 68 QRSD: 107 T: 72 QT: 430 QTc: 481 Interpretive Statements Sinus rhythm Low voltage, extremity leads ST elev, probable normal early repol pattern Borderline prolonged QT interval Electronically Signed On 11-03-2024 17:56:57 PDT by Melquiades Hogan Please click the below link to view image of tracing.
--- NOTE | 2024-11-02 18:59 | ECG ---
[facility] Test Date: 2024-11-02 Test Time: 10:50:34 Pat Name: HAN MEDRANO Department: Room: Gender: M Thermoplastic Technician: MAUREEN : 1970 Requested By: KARL CAVANAUGH Order Number: [id number] Reading MD: Melquiades Hogan Measurements Intervals [place] Rate: 74 P: 95 [place]: 166 QRS: 145 QRSD: 103 T: 71 QT: 423 QTc: 470 Interpretive Statements Sinus rhythm Right axis deviation ST elev, probable normal early repol pattern Baseline wander in lead(s) II Electronically Signed On 11-03-2024 17:56:32 PDT by Melquiades Hogan Please click the below link to view image of tracing.
== END 2024-11-02 15:39 | disposition home or self-care (01) ==
LOC: EDBD 10:56 → ER 10:56 → EDUNIT# 10:56 → ER 15:39
DX: R07.2 Precordial pain (principal); I13.2 Hypertensive heart and chronic kidney disease with heart failure and with stage 5 chronic kidney disease, or end stage renal disease; E11.22 Type 2 diabetes mellitus with diabetic chronic kidney disease; N18.6 End stage renal disease; I50.9 Heart failure, unspecified; F17.210 Nicotine dependence, cigarettes, uncomplicated; F12.90 Cannabis use, unspecified, uncomplicated; I25.10 Atherosclerotic heart disease of native coronary artery without angina pectoris; Z79.899 Other long term (current) drug therapy; Z79.82 Long term (current) use of aspirin; Z87.11 Personal history of peptic ulcer disease; Z90.49 Acquired absence of other specified parts of digestive tract; Z99.2 Dependence on renal dialysis
CPT/HCPCS: 36415; 71045; 80048; 82947; 83880; 84484; 85025; 93005; 96374; 96375; 99285; J1815; J1938; J2270; J2405; 82962